=== PATIENT | male | born 1945 | race Caucasian/White ===

== ENCOUNTER 2017-06-09 13:01 | Inpatient (IN) ==
--- NOTE | 2017-06-09 13:18 | Emergency Department Note ---
Disposition Clinical Impression: Lactic acidosis, HARRY (acute kidney injury), Dehydration, COPD (chronic obstructive pulmonary disease), Hypoxia Abdominal pain Qualifiers: Abdominal location: generalized Qualified Code(s): R10.84 - Generalized abdominal pain Nausea & vomiting Qualifiers: Vomiting type: unspecified Vomiting Intractability: non-intractable Qualified Code(s): R11.2 - Nausea with vomiting, unspecified Disposition: Admitted As Inpatient Condition: Fair Referrals: Suzan Kenny CORPORATE RECEPTIONIST [Primary Care Provider] - Forms: ED Satisfaction Letter Time of Disposition: 16:32 General Adult HPI - General Chief complaint: ED Nausea/Vomiting/Diarrhea Stated complaint: N/V fever Time Seen by Provider: 06/09/17 13:11 Source: patient Limitations: no limitations Nursing Notes Reviewed: Yes Vital Signs Reviewed: Yes - History of Present Illness HPI Narrative: Mr. Toscano very pleasant 71-year-old gentleman with a past history of hypertension, hyperlipidemia, COPD, insulin dependent diabetes, CAD and tobacco abuse who presents to the [facility] emergency department with chief complaint of nausea and vomiting for duration of 48 hours. He has not taken any [id number] medications for this complaint. No prior history at this complaint. He denies any recent sick contacts or illnesses. There is associated "abdominal bloating " that is not normal and subjective fevers. He has decreased appetite over the last 48 hours but is able to drink an adequate amount of water. His last bowel movement was roughly an hour before arrival to the ED and what she describes as watery. Patient underwent successful Khalida procedure back in September 2016 for worsening reflux as well as prior cholecystectomy. Patient has no prior abilities. These occur every day smoker of one pack per day for roughly 40 years. He denies any hematuria, hematchezia, melena, chest pain, short of breath, palpitations or hemoptysis. No other complaint at this time. Pain Scale: 0 - Related Data Home Medications Medication Instructions Recorded Confirmed Albuterol Sulfate [Ventolin Hfa] 2 puff IH Q4H PRN 06/07/16 06/09/17 Aspirin 81 mg PO DAILY 06/07/16 06/09/17 Citalopram [CeleXA] 20 mg PO DAILY 06/07/16 06/09/17 CloNIDine HCl [Kapvay] 0.1 mg PO HS 06/07/16 06/09/17 Clopidogrel [Plavix] 75 mg PO DAILY 06/07/16 06/09/17 Famotidine [Pepcid] 40 mg PO DAILY 06/07/16 06/09/17 Insulin ASPART [Novolog Flexpen] 0 unit SQ TIDWM 06/07/16 06/09/17 Insulin Glargine,Hum.rec.anlog 50 unit SQ HS 06/07/16 06/09/17 [Lantus Solostar] Lovastatin 40 mg PO DAILY 06/07/16 06/09/17 Metformin HCl [Glucophage] 1,000 mg PO BID 06/07/16 06/09/17 Aclidinium [place] [Tudorza 1 puff IH BID 10/19/16 06/09/17 Pressair] Amlodipine Besylate 10 mg PO DAILY 10/19/16 06/09/17 Levothyroxine Sodium [Levoxyl] 88 mcg PO 0630 10/19/16 06/09/17 Lisinopril/Hydrochlorothiazide 1 tab PO DAILY 10/19/16 06/09/17 [Zestoretic 20-25 mg Tablet] Metoprolol [Lopressor] 25 mg PO BID 10/19/16 06/09/17 Insulin Glargine,Hum.rec.anlog 35 unit SQ DAILY 06/09/17 06/09/17 [Toujeo Solostar] Allergies Allergy/AdvReac Type Severity Reaction Status Date / Time No Known Allergies Allergy Verified 10/19/16 09:54 Review of Systems: Constitutional: No fever Vision: No blurred vision ENT: No rhinorrhea Respiratory: No cough Cardiovascular: No chest pain Allergic: No allergies : No blood in urine GI: No blood in stool Hematologic: No bruising Dermatologic: No skin rash Musculoskeletal: No pain in the extremities Neuro: No numbness of the extremities Past Medical History - Past Medical History Medical history: Reports: COPD, coronary artery disease, diabetes, GERD, hyperlipidemia, hypertension, other Surgical history: Reports: cholecystectomy, other Psychiatric history: Reports: no psych history - Social History Smoking Status: Former smoker Smokeless Tobacco Status: No Alcohol use: Reports: none Drug use: Reports: none Physical Exam CONSTITUTIONAL: Alert and oriented X3 in no apparent distress HEAD: Normocephalic; atraumatic. EYES: Ocular movements grossly intact Oropharynx: pink/moist RESP: NRD without use of accessory musculature, CTA b/l with no wheezes/rales/ rhonchi CARD: Regular rhythm, without murmurs, rubs, or gallop ABD: distended, no overt TTP throughout, no rigidiity, no rebound, BSx4 SKIN: normal appearance, no pallor/diaphoresis,mottling,jaundice,cyanosis - General Limitations: no limitations General appearance: alert, in no apparent distress Course Course Narrative: Patient seen and examined at 1315. Signs reviewed and within normal limits. Physical examination demonstrates a mildly uncomfortable patient with a distended abdomen without any rigidity or rebound tenderness. He is currently requiring 4l oxygen after "feeling confined" wearing a mask into the ED. Breathing treatment and steroids ordered. 12 Lead and trop ordered. In the presence of tachypnea and oxygen demand, we will order CTA chest to rule out PE. No distinct tenderness in any abdomnial quadrant. In the setting of nausea , vomiting, decreased appetite, abdominal distention and prior abdominal surgeries, I am concerned about possible SBO as well. We will begin workup with CBC, CMP, lipase, lactic acid and abdominal pelvic CT with contrast. Fluid bolus and Zofran were given. Disposition pending. 1430: CXR neg. BP dropped to 80s/60s. HR normal. Second IV line placed. Started on 2L IVF. Lactic acid 7.3. Trop 0.06. Cr 2.66. Blood cultures drawn. ELevated transaminases. Highly suspicisous for ischemic bowel with abdominal pain and lactic acidosis without any obvious signs of infections. Contacted Nephro with Dr. Anna to discuss CT with IV contrast to rule ischemic bowel and agreed to sign off for IV contrast if patient agreed to risks with IV contrast and likeliood of diaylsis. Anion Gap 16. Checking VBG and Beta- hydroxy. Started on 0.45% NS with 100meq Bicarb. BP rechecked during senior living through first liter of IVF and was fluid responsive at 110/80. Patient is comfortable and is feeling better. We will continue to monitor with serial exams. Radiologist recommended without IV and PO contrast and to evaluate for inflammation that would result from bowel ischemia due to timeline of symptoms for 24-48hrs. 1512: Rechecking lactic acid and Cr for trend. Repeat physical examination demonstrates no abdomnial pain and has asked nursing staff to be discharged home. Ischemic bowel is less likely at this time but we will proceed with CT scans. At this time, WBC is normal and infectious etiology is very unlikely. No requirement for oxygen throughout except for comfort per patient. I do not believe this patient to be septic but rather hypotensive from dehydration and poor intake in conjunction with metformin use resulting in HARRY and LA. Again patient does not appear to toxic at this time. Patient will be admitted to hospitalist pending full workup for HARRY and lactic acidosis. 1545: Patient returned from CT and was at ambulating on his own to the bathroom and had a bowel movement and urinated. Patient has no complaints at this time. He does appear to have some labored breathing after ambulating. Patient does appear comfortable after 4 L of oxygen. Chest, abdomen, pelvic CT demonstrate mild atelectasis along with possible ileus versus partial small bowel obstruction. Repeat lactic acid and creatinine are pending at this time. [id number] discussion with the radiologist on site regarding kidneys and ureters were explained and were unremarkable. We will watch for trending of the repeat lactic acid and creatinine and continue to watch patient closely. 1630: Lactic trended down to 5.2 and Cr 2.3. Spoke with hospitalist, Dr Castellanos, who accepted patient for admission to ICU pending bed availability. Recommended surgical consultation prior to admission. Spoke with Dr. Couch who will see patient and agreed with therapy. Patient understands and agrees to plan. 1730: Multiple attempts were made with hospitalist, Dr. Post to accept patient who is hemodynamically stable and is currently symptom-free, but refused to accept patient. He has received 3L fluid. Called Dr. Couch again to have her further review the CT results together and she recommended no immediate intervention in the presence of an overall improving clinical exam along with no free air, pneumatosis or bowel ischemic changes seen on CT. Abdominal exam shows a benign abdomen with no rebound tenderness or rigidity. There is however still a small stable presence of distention patient does not feel uncomfortable. Again vital signs were reviewed and stable. We will recheck troponin and VBG and lactic acid. 1810: Dr. Post returned to the ED and discussed the case with Dr. Couch who will come in to see patient in the ED. He has accepted patient for admission. Repeat labs are pending. Vital Signs Temperature 98.0 F 06/09/17 13:06 Pulse Rate 94 06/09/17 13:06 Respiratory Rate 28 06/09/17 13:06 Blood Pressure 102/86 06/09/17 13:06 O2 Sat by Pulse Oximetry 94 06/09/17 13:06 Temperature 98.3 F 06/09/17 16:10 Pulse Rate 98 06/09/17 18:45 Respiratory Rate 20 06/09/17 18:45 Blood Pressure 105/73 06/09/17 18:45 O2 Sat by Pulse Oximetry 91 06/09/17 18:45 Oxygen Delivery Oxygen Delivery Nasal Cannula Medical Decision Making - Medical Records Medical records reviewed: Yes I reviewed the patient's medical records. - Lab Data Lab results reviewed: Yes I reviewed the patient's lab results. Result diagrams: 06/09/17 13:34 06/09/17 15:55 Lab Results 06/09/17 06/09/17 06/09/17 Range/Units 13:19 13:34 13:34 WBC 7.6 (4.3-11.1) K/mcL RBC 4.18 L (4.19-5.50) M/mcL Hgb 12.7 L (12.9-16.9) g/dL Hct 38.2 (37.5-50.1) % MCV 91.4 (83.0-100.0) fL MCH 30.4 (28.0-33.3) pg MCHC 33.2 (31.6-35.5) g/dL RDW 14.6 H (11.5-14.5) % Plt Count 225 (140-400) K/mcL MPV 11.6 (9.4-12.4) fL Immature Gran % Test Not Performed Seg Neutrophils % 46.0 % Lymphocytes % 26.0 % Monocytes % 28.0 % Eosinophils % Test Not Performed Basophils % Test Not Performed Neutrophils # 3.5 (1.6-8.9) K/mcL Lymphocytes # 2.0 (0.6-4.6) K/mcL Monocytes # 2.1 H (0.0-1.3) K/mcL Eosinophils # Test Not Performed Basophils # Test Not Performed Platelet Estimate Normal (Normal) Anisocytosis 1+ A (Not Present) PT (9.4-12.1) Seconds INR APTT (26.0-36.0) Seconds D-Dimer (0-500) ng/mLFEU VBG pH (7.32-7.42) pH Units VBG pCO2 (41-51) mmHg VBG pO2 (25-50) mmHg VBG HCO3 (21-27) mEq/L Sodium (136-145) mEq/L Potassium (3.5-5.1) mEq/L Chloride (98-107) mEq/L Carbon Dioxide (23-29) mEq/L BUN (8-23) mg/dL Creatinine (0.70-1.30) mg/dL Est GFR ( Amer) (> 60) Est GFR (Non-Af Amer) (> 60) BUN/Creatinine Ratio (6-26) Glucose (70-105) mg/dL POC Glucose 240 H (70-99) mg/dL Calculated Osmolality (280-300) Lactic Acid 7.3 H* (0.5-2.2) mmol/L Calcium (8.6-10.3) mg/dL Total Bilirubin (0.3-1.0) mg/dL Direct Bilirubin (0.0-0.2) mg/dL Indirect Bilirubin (0.0-1.2) mg/dL AST (13-39) Units/L ALT (7-52) Units/L Alkaline Phosphatase (34-104) Units/L Creatine Kinase (30-223) Units/L Troponin I (< 0.04) ng/mL Serum Total Protein (6.4-8.9) g/dL Albumin (3.5-5.7) g/dL Globulin (2.4-3.5) g/dL Albumin/Globulin Ratio (1.1-2.2) Lipase (11-82) Units/L Beta-Hydroxybutyric Acd (0.02-0.27) mmol/L Urine Color (Yellow) Urine Clarity (Clear) Urine pH (5.0-8.0) pH Units Ur Specific [place] (1.010-1.025) Urine Protein (Neg-Trace) mg/dL Urine Glucose (UA) (Normal) mg/dL Urine Ketones (Negative) mg/dL Urine Blood (Negative) Urine Nitrite (Negative) Urine Bilirubin (Negative) Urine Urobilinogen (Normal) mg/dL Ur Leukocyte Esterase (Negative) Urine Microscopic RBC (0-3) per hpf Urine Microscopic WBC (0-3) per hpf Ur Squamous Epith Cells (None-Few) per lpf Urine Bacteria (None-Few) per hpf Hyaline Casts (None-Few) per lpf Urine Creatinine mg/dL Urine Sodium mEq/L 06/09/17 06/09/17 06/09/17 Range/Units 13:34 13:34 14:17 WBC (4.3-11.1) K/mcL RBC (4.19-5.50) M/mcL Hgb (12.9-16.9) g/dL Hct (37.5-50.1) % MCV (83.0-100.0) fL MCH (28.0-33.3) pg MCHC (31.6-35.5) g/dL RDW (11.5-14.5) % Plt Count (140-400) K/mcL MPV (9.4-12.4) fL Immature Gran % Seg Neutrophils % % Lymphocytes % % Monocytes % % Eosinophils % Basophils % Neutrophils # (1.6-8.9) K/mcL Lymphocytes # (0.6-4.6) K/mcL Monocytes # (0.0-1.3) K/mcL Eosinophils # Basophils # Platelet Estimate (Normal) Anisocytosis (Not Present) PT 13.7 H (9.4-12.1) Seconds INR 1.3 APTT 26.0 (26.0-36.0) Seconds D-Dimer (0-500) ng/mLFEU VBG pH (7.32-7.42) pH Units VBG pCO2 (41-51) mmHg VBG pO2 (25-50) mmHg VBG HCO3 (21-27) mEq/L Sodium 135 L (136-145) mEq/L Potassium 3.9 (3.5-5.1) mEq/L Chloride 103 (98-107) mEq/L Carbon Dioxide 16 L (23-29) mEq/L BUN 63 H (8-23) mg/dL Creatinine 2.66 H (0.70-1.30) mg/dL Est GFR ( Amer) 29 L (> 60) Est GFR (Non-Af Amer) 24 L (> 60) BUN/Creatinine Ratio 24 (6-26) Glucose 249 H (70-105) mg/dL POC Glucose (70-99) mg/dL Calculated Osmolality 306 H (280-300) Lactic Acid (0.5-2.2) mmol/L Calcium 7.9 L (8.6-10.3) mg/dL Total Bilirubin 0.4 0.3 (0.3-1.0) mg/dL Direct Bilirubin 0.1 (0.0-0.2) mg/dL Indirect Bilirubin 0.2 (0.0-1.2) mg/dL AST 125 H 148 H (13-39) Units/L ALT 90 H 105 H (7-52) Units/L Alkaline Phosphatase 36 37 (34-104) Units/L Creatine Kinase 71 (30-223) Units/L Troponin I 0.06 H* (< 0.04) ng/mL Serum Total Protein 6.4 6.4 (6.4-8.9) g/dL Albumin 3.5 3.7 (3.5-5.7) g/dL Globulin 2.9 2.7 (2.4-3.5) g/dL Albumin/Globulin Ratio 1.2 1.4 (1.1-2.2) Lipase 6 L (11-82) Units/L Beta-Hydroxybutyric Acd (0.02-0.27) mmol/L Urine Color (Yellow) Urine Clarity (Clear) Urine pH (5.0-8.0) pH Units Ur Specific [place] (1.010-1.025) Urine Protein (Neg-Trace) mg/dL Urine Glucose (UA) (Normal) mg/dL Urine Ketones (Negative) mg/dL Urine Blood (Negative) Urine Nitrite (Negative) Urine Bilirubin (Negative) Urine Urobilinogen (Normal) mg/dL Ur Leukocyte Esterase (Negative) Urine Microscopic RBC (0-3) per hpf Urine Microscopic WBC (0-3) per hpf Ur Squamous Epith Cells (None-Few) per lpf Urine Bacteria (None-Few) per hpf Hyaline Casts (None-Few) per lpf Urine Creatinine mg/dL Urine Sodium mEq/L 06/09/17 06/09/17 06/09/17 Range/Units 14:21 14:31 15:14 WBC (4.3-11.1) K/mcL RBC (4.19-5.50) M/mcL Hgb (12.9-16.9) g/dL Hct (37.5-50.1) % MCV (83.0-100.0) fL MCH (28.0-33.3) pg MCHC (31.6-35.5) g/dL RDW (11.5-14.5) % Plt Count (140-400) K/mcL MPV (9.4-12.4) fL Immature Gran % Seg Neutrophils % % Lymphocytes % % Monocytes % % Eosinophils % Basophils % Neutrophils # (1.6-8.9) K/mcL Lymphocytes # (0.6-4.6) K/mcL Monocytes # (0.0-1.3) K/mcL Eosinophils # Basophils # Platelet Estimate (Normal) Anisocytosis (Not Present) PT (9.4-12.1) Seconds INR APTT (26.0-36.0) Seconds D-Dimer (0-500) ng/mLFEU VBG pH 7.30 L (7.32-7.42) pH Units VBG pCO2 34 L (41-51) mmHg VBG pO2 36 (25-50) mmHg VBG HCO3 17 L (21-27) mEq/L Sodium (136-145) mEq/L Potassium (3.5-5.1) mEq/L Chloride (98-107) mEq/L Carbon Dioxide (23-29) mEq/L BUN (8-23) mg/dL Creatinine (0.70-1.30) mg/dL Est GFR ( Amer) (> 60) Est GFR (Non-Af Amer) (> 60) BUN/Creatinine Ratio (6-26) Glucose (70-105) mg/dL POC Glucose (70-99) mg/dL Calculated Osmolality (280-300) Lactic Acid (0.5-2.2) mmol/L Calcium (8.6-10.3) mg/dL Total Bilirubin (0.3-1.0) mg/dL Direct Bilirubin (0.0-0.2) mg/dL Indirect Bilirubin (0.0-1.2) mg/dL AST (13-39) Units/L ALT (7-52) Units/L Alkaline Phosphatase (34-104) Units/L Creatine Kinase (30-223) Units/L Troponin I (< 0.04) ng/mL Serum Total Protein (6.4-8.9) g/dL Albumin (3.5-5.7) g/dL Globulin (2.4-3.5) g/dL Albumin/Globulin Ratio (1.1-2.2) Lipase (11-82) Units/L Beta-Hydroxybutyric Acd < 0.10 (0.02-0.27) mmol/L Urine Color Yellow (Yellow) Urine Clarity Cloudy A (Clear) Urine pH 5.0 (5.0-8.0) pH Units Ur Specific [place] 1.026 H (1.010-1.025) Urine Protein 100 H (Neg-Trace) mg/dL Urine Glucose (UA) 500 H (Normal) mg/dL Urine Ketones Trace H (Negative) mg/dL Urine Blood Negative (Negative) Urine Nitrite Negative (Negative) Urine Bilirubin Small H (Negative) Urine Urobilinogen Normal (Normal) mg/dL Ur Leukocyte Esterase Negative (Negative) Urine Microscopic RBC 0-3 (0-3) per hpf Urine Microscopic WBC 3-5 H (0-3) per hpf Ur Squamous Epith Cells Many H (None-Few) per lpf Urine Bacteria None Seen (None-Few) per hpf Hyaline Casts None Seen (None-Few) per lpf Urine Creatinine mg/dL Urine Sodium mEq/L 06/09/17 06/09/17 06/09/17 Range/Units 15:14 15:55 15:55 WBC (4.3-11.1) K/mcL RBC (4.19-5.50) M/mcL Hgb (12.9-16.9) g/dL Hct (37.5-50.1) % MCV (83.0-100.0) fL MCH (28.0-33.3) pg MCHC (31.6-35.5) g/dL RDW (11.5-14.5) % Plt Count (140-400) K/mcL MPV (9.4-12.4) fL Immature Gran % Seg Neutrophils % % Lymphocytes % % Monocytes % % Eosinophils % Basophils % Neutrophils # (1.6-8.9) K/mcL Lymphocytes # (0.6-4.6) K/mcL Monocytes # (0.0-1.3) K/mcL Eosinophils # Basophils # Platelet Estimate (Normal) Anisocytosis (Not Present) PT (9.4-12.1) Seconds INR APTT (26.0-36.0) Seconds D-Dimer (0-500) ng/mLFEU VBG pH (7.32-7.42) pH Units VBG pCO2 (41-51) mmHg VBG pO2 (25-50) mmHg VBG HCO3 (21-27) mEq/L Sodium (136-145) mEq/L Potassium (3.5-5.1) mEq/L Chloride (98-107) mEq/L Carbon Dioxide (23-29) mEq/L BUN (8-23) mg/dL Creatinine 2.39 H (0.70-1.30) mg/dL Est GFR ( Amer) 33 L (> 60) Est GFR (Non-Af Amer) 27 L (> 60) BUN/Creatinine Ratio (6-26) Glucose (70-105) mg/dL POC Glucose (70-99) mg/dL Calculated Osmolality (280-300) Lactic Acid 5.2 H* (0.5-2.2) mmol/L Calcium (8.6-10.3) mg/dL Total Bilirubin (0.3-1.0) mg/dL Direct Bilirubin (0.0-0.2) mg/dL Indirect Bilirubin (0.0-1.2) mg/dL AST (13-39) Units/L ALT (7-52) Units/L Alkaline Phosphatase (34-104) Units/L Creatine Kinase (30-223) Units/L Troponin I (< 0.04) ng/mL Serum Total Protein (6.4-8.9) g/dL Albumin (3.5-5.7) g/dL Globulin (2.4-3.5) g/dL Albumin/Globulin Ratio (1.1-2.2) Lipase (11-82) Units/L Beta-Hydroxybutyric Acd (0.02-0.27) mmol/L Urine Color (Yellow) Urine Clarity (Clear) Urine pH (5.0-8.0) pH Units Ur Specific [place] (1.010-1.025) Urine Protein (Neg-Trace) mg/dL Urine Glucose (UA) (Normal) mg/dL Urine Ketones (Negative) mg/dL Urine Blood (Negative) Urine Nitrite (Negative) Urine Bilirubin (Negative) Urine Urobilinogen (Normal) mg/dL Ur Leukocyte Esterase (Negative) Urine Microscopic RBC (0-3) per hpf Urine Microscopic WBC (0-3) per hpf Ur Squamous Epith Cells (None-Few) per lpf Urine Bacteria (None-Few) per hpf Hyaline Casts (None-Few) per lpf Urine Creatinine 165 mg/dL Urine Sodium 18.7 mEq/L 06/09/17 06/09/17 Range/Units 18:12 18:34 WBC (4.3-11.1) K/mcL RBC (4.19-5.50) M/mcL Hgb (12.9-16.9) g/dL Hct (37.5-50.1) % MCV (83.0-100.0) fL MCH (28.0-33.3) pg MCHC (31.6-35.5) g/dL RDW (11.5-14.5) % Plt Count (140-400) K/mcL MPV (9.4-12.4) fL Immature Gran % Seg Neutrophils % % Lymphocytes % % Monocytes % % Eosinophils % Basophils % Neutrophils # (1.6-8.9) K/mcL Lymphocytes # (0.6-4.6) K/mcL Monocytes # (0.0-1.3) K/mcL Eosinophils # Basophils # Platelet Estimate (Normal) Anisocytosis (Not Present) PT (9.4-12.1) Seconds INR APTT (26.0-36.0) Seconds D-Dimer 5051 H (0-500) ng/mLFEU VBG pH 7.37 (7.32-7.42) pH Units VBG pCO2 29 L (41-51) mmHg VBG pO2 152 H (25-50) mmHg VBG HCO3 16 L (21-27) mEq/L Sodium (136-145) mEq/L Potassium (3.5-5.1) mEq/L Chloride (98-107) mEq/L Carbon Dioxide (23-29) mEq/L BUN (8-23) mg/dL Creatinine (0.70-1.30) mg/dL Est GFR ( Amer) (> 60) Est GFR (Non-Af Amer) (> 60) BUN/Creatinine Ratio (6-26) Glucose (70-105) mg/dL POC Glucose (70-99) mg/dL Calculated Osmolality (280-300) Lactic Acid (0.5-2.2) mmol/L Calcium (8.6-10.3) mg/dL Total Bilirubin (0.3-1.0) mg/dL Direct Bilirubin (0.0-0.2) mg/dL Indirect Bilirubin (0.0-1.2) mg/dL AST (13-39) Units/L ALT (7-52) Units/L Alkaline Phosphatase (34-104) Units/L Creatine Kinase (30-223) Units/L Troponin I (< 0.04) ng/mL Serum Total Protein (6.4-8.9) g/dL Albumin (3.5-5.7) g/dL Globulin (2.4-3.5) g/dL Albumin/Globulin Ratio (1.1-2.2) Lipase (11-82) Units/L Beta-Hydroxybutyric Acd (0.02-0.27) mmol/L Urine Color (Yellow) Urine Clarity (Clear) Urine pH (5.0-8.0) pH Units Ur Specific [place] (1.010-1.025) Urine Protein (Neg-Trace) mg/dL Urine Glucose (UA) (Normal) mg/dL Urine Ketones (Negative) mg/dL Urine Blood (Negative) Urine Nitrite (Negative) Urine Bilirubin (Negative) Urine Urobilinogen (Normal) mg/dL Ur Leukocyte Esterase (Negative) Urine Microscopic RBC (0-3) per hpf Urine Microscopic WBC (0-3) per hpf Ur Squamous Epith Cells (None-Few) per lpf Urine Bacteria (None-Few) per hpf Hyaline Casts (None-Few) per lpf Urine Creatinine mg/dL Urine Sodium mEq/L - Radiology Data Radiology results reviewed: Yes I reviewed the patient's radiology results. - EKG Data EKG #1 EKG shows normal: sinus rhythm Rate: normal [place]/QRS: RBBB T wave inversions noted in: I, aVL, v4, v5, v6 When compared to previous EKG there are: no significant changes Interpretation: no acute changes Attestation Statement - Attestation Attestation: I, Gaurav Stauffer DO, examined this patient [id number] and my medical decision-making was reviewed with Дмитрий Patterson PGY-1, Resident Physician. I agree with the documented findings, disposition and treatment plan as described except to the extent set forth below. Please see my progress notes for details.
[2017-06-09] MEDS ORDERED: Isovue-370 500 ML INFUS..BTL IV ONE (13:21)
[2017-06-09] MEDS ORDERED: 0.9 % Sodium Chloride 1,000 ML IVC ONE ×2 (13:24→14:17)
[2017-06-09] MEDS ORDERED: Ondansetron ODT 4 MG TAB.RAPDIS SL ONE (13:25)
[2017-06-09 13:41] LABS: Hematocrit 38.2 % (37.5-50.1); Hemoglobin 12.7 g/dL (12.9-16.9); Mean Corpuscular HGB Conc 33.2 g/dL (31.6-35.5); Mean Corpuscular Hemoglobin 30.4 pg (28.0-33.3); Mean Corpuscular Volume 91.4 fL (83.0-100.0); Mean Platelet Volume 11.6 fL (9.4-12.4); Platelet Count 225 K/mcL (140-400); Red Blood Count 4.18 M/mcL (4.19-5.50); Red Cell Distribution Width 14.6 % (11.5-14.5)
[2017-06-09] MEDS ORDERED: Ipratropium/Albuterol Neb 3 ML IH ONE (13:46)
[2017-06-09] MEDS ORDERED: methylPREDNISolone 125 MG/2 ML VIAL IVP ONE (13:46)
--- NOTE | 2017-06-09 14:06 | Emergency Department Note ---
Disposition Clinical Impression: Lactic acidosis, HARRY (acute kidney injury), Dehydration, Abdominal pain, Nausea & vomiting Disposition: Admitted As Inpatient Condition: Good Referrals: Suzan Kenny CEN[employer]IFUGE OPERATOR [Primary Care Provider] - Forms: ED Satisfaction Letter Time of Disposition: 17:07 General Adult HPI - General Chief complaint: ED Nausea/Vomiting/Diarrhea Stated complaint: N/V fever Time Seen by Provider: 06/09/17 13:11 Source: patient Limitations: no limitations - History of Present Illness Pain Scale: 0 - Related Data Home Medications Medication Instructions Recorded Confirmed Albuterol Sulfate [Ventolin Hfa] 2 puff IH Q4H PRN 06/07/16 10/19/16 Aspirin 81 mg PO DAILY 06/07/16 10/19/16 Citalopram [CeleXA] 20 mg PO DAILY 06/07/16 10/19/16 CloNIDine HCl [Kapvay] 0.1 mg PO HS 06/07/16 10/19/16 Clopidogrel [Plavix] 75 mg PO DAILY 06/07/16 10/19/16 Famotidine [Pepcid] 40 mg PO DAILY 06/07/16 10/19/16 Insulin ASPART [Novolog Flexpen] 0 unit SQ TIDWM 06/07/16 10/19/16 Insulin Glargine,Hum.rec.anlog 50 unit SQ HS 06/07/16 10/19/16 [Lantus Solostar] Lovastatin 40 mg PO DAILY 06/07/16 10/19/16 Metformin HCl [Glucophage] 1,000 mg PO BID 06/07/16 10/19/16 Aclidinium Coffeen [Tudorza 1 puff IH BID 10/19/16 10/19/16 Pressair] Amlodipine Besylate 10 mg PO DAILY 10/19/16 10/19/16 Levothyroxine Sodium [Levoxyl] 88 mcg PO 0630 10/19/16 10/19/16 Lisinopril/Hydrochlorothiazide 1 tab PO DAILY 10/19/16 10/19/16 [Zestoretic 20-25 mg Tablet] Metoprolol [Lopressor] 25 mg PO BID 10/19/16 10/19/16 Insulin Glargine,Hum.rec.anlog 35 unit SQ DAILY 06/09/17 06/09/17 [Toujeo Solostar] Allergies Allergy/AdvReac Type Severity Reaction Status Date / Time No Known Allergies Allergy Verified 10/19/16 09:54 Past Medical History - Past Medical History Medical history: Reports: COPD, coronary artery disease, diabetes, GERD, hyperlipidemia, hypertension, other Surgical history: Reports: cholecystectomy, other Psychiatric history: Reports: no psych history - Social History Smoking Status: Former smoker Smokeless Tobacco Status: No Alcohol use: Reports: none Drug use: Reports: none Physical Exam - General Limitations: no limitations General appearance: alert, in no apparent distress Course Vital Signs Temperature 98.0 F 06/09/17 13:06 Pulse Rate 94 06/09/17 13:06 Respiratory Rate 28 06/09/17 13:06 Blood Pressure 102/86 06/09/17 13:06 O2 Sat by Pulse Oximetry 94 06/09/17 13:06 Temperature 98.3 F 06/09/17 16:10 Pulse Rate 101 06/09/17 16:10 Respiratory Rate 23 06/09/17 16:10 Blood Pressure 103/72 06/09/17 16:10 O2 Sat by Pulse Oximetry 92 06/09/17 16:10 Oxygen Delivery Oxygen Delivery Nasal Cannula Medical Decision Making - Lab Data Result diagrams: 06/09/17 13:34 06/09/17 15:55 Lab Results 06/09/17 06/09/17 06/09/17 Range/Units 13:19 13:34 13:34 WBC 7.6 (4.3-11.1) K/mcL RBC 4.18 L (4.19-5.50) M/mcL Hgb 12.7 L (12.9-16.9) g/dL Hct 38.2 (37.5-50.1) % MCV 91.4 (83.0-100.0) fL MCH 30.4 (28.0-33.3) pg MCHC 33.2 (31.6-35.5) g/dL RDW 14.6 H (11.5-14.5) % Plt Count 225 (140-400) K/mcL MPV 11.6 (9.4-12.4) fL Immature Gran % Test Not Performed Seg Neutrophils % 46.0 % Lymphocytes % 26.0 % Monocytes % 28.0 % Eosinophils % Test Not Performed Basophils % Test Not Performed Neutrophils # 3.5 (1.6-8.9) K/mcL Lymphocytes # 2.0 (0.6-4.6) K/mcL Monocytes # 2.1 H (0.0-1.3) K/mcL Eosinophils # Test Not Performed Basophils # Test Not Performed Platelet Estimate Normal (Normal) Anisocytosis 1+ A (Not Present) PT (9.4-12.1) Seconds INR APTT (26.0-36.0) Seconds VBG pH (7.32-7.42) pH Units VBG pCO2 (41-51) mmHg VBG pO2 (25-50) mmHg VBG HCO3 (21-27) mEq/L Sodium (136-145) mEq/L Potassium (3.5-5.1) mEq/L Chloride (98-107) mEq/L Carbon Dioxide (23-29) mEq/L BUN (8-23) mg/dL Creatinine (0.70-1.30) mg/dL Est GFR ( Amer) (> 60) Est GFR (Non-Af Amer) (> 60) BUN/Creatinine Ratio (6-26) Glucose (70-105) mg/dL POC Glucose 240 H (70-99) mg/dL Calculated Osmolality (280-300) Lactic Acid 7.3 H* (0.5-2.2) mmol/L Calcium (8.6-10.3) mg/dL Total Bilirubin (0.3-1.0) mg/dL Direct Bilirubin (0.0-0.2) mg/dL Indirect Bilirubin (0.0-1.2) mg/dL AST (13-39) Units/L ALT (7-52) Units/L Alkaline Phosphatase (34-104) Units/L Creatine Kinase (30-223) Units/L Troponin I (< 0.04) ng/mL Serum Total Protein (6.4-8.9) g/dL Albumin (3.5-5.7) g/dL Globulin (2.4-3.5) g/dL Albumin/Globulin Ratio (1.1-2.2) Lipase (11-82) Units/L Beta-Hydroxybutyric Acd (0.02-0.27) mmol/L Urine Color (Yellow) Urine Clarity (Clear) Urine pH (5.0-8.0) pH Units Ur Specific [place] (1.010-1.025) Urine Protein (Neg-Trace) mg/dL Urine Glucose (UA) (Normal) mg/dL Urine Ketones (Negative) mg/dL Urine Blood (Negative) Urine Nitrite (Negative) Urine Bilirubin (Negative) Urine Urobilinogen (Normal) mg/dL Ur Leukocyte Esterase (Negative) Urine Microscopic RBC (0-3) per hpf Urine Microscopic WBC (0-3) per hpf Ur Squamous Epith Cells (None-Few) per lpf Urine Bacteria (None-Few) per hpf Hyaline Casts (None-Few) per lpf Urine Creatinine mg/dL Urine Sodium mEq/L 06/09/17 06/09/17 06/09/17 Range/Units 13:34 13:34 14:17 WBC (4.3-11.1) K/mcL RBC (4.19-5.50) M/mcL Hgb (12.9-16.9) g/dL Hct (37.5-50.1) % MCV (83.0-100.0) fL MCH (28.0-33.3) pg MCHC (31.6-35.5) g/dL RDW (11.5-14.5) % Plt Count (140-400) K/mcL MPV (9.4-12.4) fL Immature Gran % Seg Neutrophils % % Lymphocytes % % Monocytes % % Eosinophils % Basophils % Neutrophils # (1.6-8.9) K/mcL Lymphocytes # (0.6-4.6) K/mcL Monocytes # (0.0-1.3) K/mcL Eosinophils # Basophils # Platelet Estimate (Normal) Anisocytosis (Not Present) PT 13.7 H (9.4-12.1) Seconds INR 1.3 APTT 26.0 (26.0-36.0) Seconds VBG pH (7.32-7.42) pH Units VBG pCO2 (41-51) mmHg VBG pO2 (25-50) mmHg VBG HCO3 (21-27) mEq/L Sodium 135 L (136-145) mEq/L Potassium 3.9 (3.5-5.1) mEq/L Chloride 103 (98-107) mEq/L Carbon Dioxide 16 L (23-29) mEq/L BUN 63 H (8-23) mg/dL Creatinine 2.66 H (0.70-1.30) mg/dL Est GFR ( Amer) 29 L (> 60) Est GFR (Non-Af Amer) 24 L (> 60) BUN/Creatinine Ratio 24 (6-26) Glucose 249 H (70-105) mg/dL POC Glucose (70-99) mg/dL Calculated Osmolality 306 H (280-300) Lactic Acid (0.5-2.2) mmol/L Calcium 7.9 L (8.6-10.3) mg/dL Total Bilirubin 0.4 0.3 (0.3-1.0) mg/dL Direct Bilirubin 0.1 (0.0-0.2) mg/dL Indirect Bilirubin 0.2 (0.0-1.2) mg/dL AST 125 H 148 H (13-39) Units/L ALT 90 H 105 H (7-52) Units/L Alkaline Phosphatase 36 37 (34-104) Units/L Creatine Kinase 71 (30-223) Units/L Troponin I 0.06 H* (< 0.04) ng/mL Serum Total Protein 6.4 6.4 (6.4-8.9) g/dL Albumin 3.5 3.7 (3.5-5.7) g/dL Globulin 2.9 2.7 (2.4-3.5) g/dL Albumin/Globulin Ratio 1.2 1.4 (1.1-2.2) Lipase 6 L (11-82) Units/L Beta-Hydroxybutyric Acd (0.02-0.27) mmol/L Urine Color (Yellow) Urine Clarity (Clear) Urine pH (5.0-8.0) pH Units Ur Specific [place] (1.010-1.025) Urine Protein (Neg-Trace) mg/dL Urine Glucose (UA) (Normal) mg/dL Urine Ketones (Negative) mg/dL Urine Blood (Negative) Urine Nitrite (Negative) Urine Bilirubin (Negative) Urine Urobilinogen (Normal) mg/dL Ur Leukocyte Esterase (Negative) Urine Microscopic RBC (0-3) per hpf Urine Microscopic WBC (0-3) per hpf Ur Squamous Epith Cells (None-Few) per lpf Urine Bacteria (None-Few) per hpf Hyaline Casts (None-Few) per lpf Urine Creatinine mg/dL Urine Sodium mEq/L 06/09/17 06/09/17 06/09/17 Range/Units 14:21 14:31 15:14 WBC (4.3-11.1) K/mcL RBC (4.19-5.50) M/mcL Hgb (12.9-16.9) g/dL Hct (37.5-50.1) % MCV (83.0-100.0) fL MCH (28.0-33.3) pg MCHC (31.6-35.5) g/dL RDW (11.5-14.5) % Plt Count (140-400) K/mcL MPV (9.4-12.4) fL Immature Gran % Seg Neutrophils % % Lymphocytes % % Monocytes % % Eosinophils % Basophils % Neutrophils # (1.6-8.9) K/mcL Lymphocytes # (0.6-4.6) K/mcL Monocytes # (0.0-1.3) K/mcL Eosinophils # Basophils # Platelet Estimate (Normal) Anisocytosis (Not Present) PT (9.4-12.1) Seconds INR APTT (26.0-36.0) Seconds VBG pH 7.30 L (7.32-7.42) pH Units VBG pCO2 34 L (41-51) mmHg VBG pO2 36 (25-50) mmHg VBG HCO3 17 L (21-27) mEq/L Sodium (136-145) mEq/L Potassium (3.5-5.1) mEq/L Chloride (98-107) mEq/L Carbon Dioxide (23-29) mEq/L BUN (8-23) mg/dL Creatinine (0.70-1.30) mg/dL Est GFR ( Amer) (> 60) Est GFR (Non-Af Amer) (> 60) BUN/Creatinine Ratio (6-26) Glucose (70-105) mg/dL POC Glucose (70-99) mg/dL Calculated Osmolality (280-300) Lactic Acid (0.5-2.2) mmol/L Calcium (8.6-10.3) mg/dL Total Bilirubin (0.3-1.0) mg/dL Direct Bilirubin (0.0-0.2) mg/dL Indirect Bilirubin (0.0-1.2) mg/dL AST (13-39) Units/L ALT (7-52) Units/L Alkaline Phosphatase (34-104) Units/L Creatine Kinase (30-223) Units/L Troponin I (< 0.04) ng/mL Serum Total Protein (6.4-8.9) g/dL Albumin (3.5-5.7) g/dL Globulin (2.4-3.5) g/dL Albumin/Globulin Ratio (1.1-2.2) Lipase (11-82) Units/L Beta-Hydroxybutyric Acd < 0.10 (0.02-0.27) mmol/L Urine Color Yellow (Yellow) Urine Clarity Cloudy A (Clear) Urine pH 5.0 (5.0-8.0) pH Units Ur Specific [place] 1.026 H (1.010-1.025) Urine Protein 100 H (Neg-Trace) mg/dL Urine Glucose (UA) 500 H (Normal) mg/dL Urine Ketones Trace H (Negative) mg/dL Urine Blood Negative (Negative) Urine Nitrite Negative (Negative) Urine Bilirubin Small H (Negative) Urine Urobilinogen Normal (Normal) mg/dL Ur Leukocyte Esterase Negative (Negative) Urine Microscopic RBC 0-3 (0-3) per hpf Urine Microscopic WBC 3-5 H (0-3) per hpf Ur Squamous Epith Cells Many H (None-Few) per lpf Urine Bacteria None Seen (None-Few) per hpf Hyaline Casts None Seen (None-Few) per lpf Urine Creatinine mg/dL Urine Sodium mEq/L 06/09/17 06/09/17 06/09/17 Range/Units 15:14 15:55 15:55 WBC (4.3-11.1) K/mcL RBC (4.19-5.50) M/mcL Hgb (12.9-16.9) g/dL Hct (37.5-50.1) % MCV (83.0-100.0) fL MCH (28.0-33.3) pg MCHC (31.6-35.5) g/dL RDW (11.5-14.5) % Plt Count (140-400) K/mcL MPV (9.4-12.4) fL Immature Gran % Seg Neutrophils % % Lymphocytes % % Monocytes % % Eosinophils % Basophils % Neutrophils # (1.6-8.9) K/mcL Lymphocytes # (0.6-4.6) K/mcL Monocytes # (0.0-1.3) K/mcL Eosinophils # Basophils # Platelet Estimate (Normal) Anisocytosis (Not Present) PT (9.4-12.1) Seconds INR APTT (26.0-36.0) Seconds VBG pH (7.32-7.42) pH Units VBG pCO2 (41-51) mmHg VBG pO2 (25-50) mmHg VBG HCO3 (21-27) mEq/L Sodium (136-145) mEq/L Potassium (3.5-5.1) mEq/L Chloride (98-107) mEq/L Carbon Dioxide (23-29) mEq/L BUN (8-23) mg/dL Creatinine 2.39 H (0.70-1.30) mg/dL Est GFR ( Amer) 33 L (> 60) Est GFR (Non-Af Amer) 27 L (> 60) BUN/Creatinine Ratio (6-26) Glucose (70-105) mg/dL POC Glucose (70-99) mg/dL Calculated Osmolality (280-300) Lactic Acid 5.2 H* (0.5-2.2) mmol/L Calcium (8.6-10.3) mg/dL Total Bilirubin (0.3-1.0) mg/dL Direct Bilirubin (0.0-0.2) mg/dL Indirect Bilirubin (0.0-1.2) mg/dL AST (13-39) Units/L ALT (7-52) Units/L Alkaline Phosphatase (34-104) Units/L Creatine Kinase (30-223) Units/L Troponin I (< 0.04) ng/mL Serum Total Protein (6.4-8.9) g/dL Albumin (3.5-5.7) g/dL Globulin (2.4-3.5) g/dL Albumin/Globulin Ratio (1.1-2.2) Lipase (11-82) Units/L Beta-Hydroxybutyric Acd (0.02-0.27) mmol/L Urine Color (Yellow) Urine Clarity (Clear) Urine pH (5.0-8.0) pH Units Ur Specific [place] (1.010-1.025) Urine Protein (Neg-Trace) mg/dL Urine Glucose (UA) (Normal) mg/dL Urine Ketones (Negative) mg/dL Urine Blood (Negative) Urine Nitrite (Negative) Urine Bilirubin (Negative) Urine Urobilinogen (Normal) mg/dL Ur Leukocyte Esterase (Negative) Urine Microscopic RBC (0-3) per hpf Urine Microscopic WBC (0-3) per hpf Ur Squamous Epith Cells (None-Few) per lpf Urine Bacteria (None-Few) per hpf Hyaline Casts (None-Few) per lpf Urine Creatinine 165 mg/dL Urine Sodium 18.7 mEq/L Critical Care Time Critical Care Time: Yes Total Critical Care Time: 45 Attestation: Critical care performed: Time is exclusive of separately billable procedures. Time includes: direct patient care, patient reassessment, coordination of patient care, interpretation of data (laboratory data, radiology data, and respiratory data), review of patient's medical records, medical consultation and documentation of patient care. Procedures included in critical care time: Procedures excluded from critical care time: Attestation Statement - Attestation Attestation: I, Gaurav Stauffer DO, examined this patient [id number] and my medical decision-making was reviewed with Дмитрий Patterson PGY-1, Resident Physician. I agree with the documented findings, disposition and treatment plan as described except to the extent set forth below. Please see my progress notes for details. 71-year-old male presents to the emergency room for evaluation of shortness of breath abdominal pain nausea vomiting and diarrhea. Patient has had these symptoms for approximately 24+ hours at this time. He denies any trauma or injury. Currently denying chest pain fevers chills headaches vision changes at this point. He does have intermittent shortness of breath along with nausea vomiting and diarrhea. Patient has not traveled outside the country nobody else is been sick around him he denies any other symptoms outside of intermittent chills and what he described as a fever at home but no documented temperature. Vital signs on presentation here stable. Patient is afebrile. He did take aspirin prior to coming in but no other antipyretics. Patient's lungs are clear to auscultation he does have a viral increased work of breathing and accessory muscle use at this time. He denies any chest discomfort or pain. His heart is regular. Abdomen is soft he does have normal bowel sounds at this point. He has no guarding no rigidity no peritoneal symptoms. He says that his pain and shortness of breath are worse when he takes a deep breath in. He does have a history of a Khalida fundoplication within the last 12 months. He has never had any complications with the surgery. Patient is otherwise clinically stable. Breathing treatments steroids will be started along with fluid secondary to mild hypotension. Patient's chest x-ray was ordered but canceled subsequently after the patient is still complaining of shortness of breath. He does not typically use oxygen at home. CT angiography of the chest looking for pulmonary emboli or other pathology will be ordered at this time as well as CT imaging of the abdomen secondary to the abdominal pain. Lactic acid CMP and lipase will also be added on. Disposition pending the full treatment course. Patient is otherwise clinically stable disposition pending the full workup and treatment. See detailed documentation of the physical exam, medical intervention, medical decision-making and disposition in the resident physician's note. No critical care appliedtreatment course at this time 1400 Patient found to have a significantly elevated renal function at 2.66 as well as a GFR 24. These are new findings for him at this time. Patient also has a significantly elevated lactic acid at 7.3. Is currently on metformin as well as subcutaneous insulin. Patient is now symptom-free. He does not have any pain or complaints. His breathing is much less labored. Initial blood pressure was labile but after 2 L of fluid is repeat blood pressure is about 115 systolic without any complication. Patient's lactic acid as well as the presentation are concerning for possible other underlying etiology including infection versus ischemic bowel. 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 Anna and I reviewed the patient's presentation symptoms and she felt that is larger decision-making process was utilized patient understood the risks of possible renal insufficiency and requirement of dialysis that if we needed CT imaging with IV contrast that she will follow along in conjunction to the patient's symptoms. Discussion was had with the patient the bedside and he understood this and is in agreement 7 for the need for the imaging ordered. Patient does not have any acute infectious etiology of his abdomen is completely benign at this time and has no pain or complaints. Symptoms do not clinically fit ischemic bowel at this time based on the presentation symptoms. Lengthy discussion was also had with the radiologist, Dr. Kj Brian, here in the emergency room. We discussed at length the concern for elevated lactic acid dehydration and nondescript abdominal pain about the patient in. He felt that considering the patient has had symptoms for greater than 24 hours noncontrasted scan of the chest and abdomen will be given of pertinent information to either pushes towards IV contrast of the abdomen with those bowel wall inflammation or thickening versus any other pathology that may be addressed are visualized on exam. Clinically, the patient has had complete resolution of his symptoms and in fact is asking nursing staff if he could be discharged home. Patient will have the completion the imaging modality and discussion with the hospitalist for admission at this time. Disposition pending the full workup and treatment course. Approximately 35 minutes of critical care provider this patient's treatment course this time. Bedside ultrasound was completed showing no acute signs of intra-abdominal free fluid, aneurysm of the aorta or dissection at this time. At this time, antibiotics will be held considering we do not have a focal source of infection and the patient's white count is normal. Again, the patient is completely symptom free at this time describing no shortness of breath and no abdominal pain. He has not required oxygen other medical intervention at this point. He did get placed on oxygen by nasal cannula secondary to what he described as feeling better with the oxygen on. His pulse ox was 95% the entire time. 1635 Patient repeat lactic acid as well as kidney function appear to be resolving with fluid resuscitation. His pain is almost completely gone at this time no significant pain medication provided. He has had a bowel movement while here in the emergency room he started urinating more aggressively. Fluid hydration with 150 mL of fluid every hour as ordered at this point. Patient does not have an acute signs of pulmonary congestion. Clinical suspicion for ischemic gut is much less likely this time secondary the patient's pain being controlled as well as a resolving symptoms at this point. Patient most likely had nausea vomiting and diarrhea that induced a dehydration state affecting his kidneys and then he continued to take his metformin at home for his poorly controlled diabetes. Patient will be admitted at this time for further management. Patient does not have any acute signs of ileus or obstruction based on his presentation. CT scan shows possible ileus but no other obstructive pathology noted. Patient is otherwise stable. Admission process to be completed at this time. No antibiotics at this point considering the patient does not have a focal infection. Patient has been provided 2.5 L of fluid with the maintenance fluids as well as a 2). Patient is stabilized at this point. There is still clinical concern for decompensation. Hospitalist was informed lactic acid creatinine Sertoli-Leydig and that they should be consideration of CT with IV contrast looking for bowel ischemia. Otherwise the patient has responded appropriately to fluid resuscitation. The hospitalist Dr. Castellanos was informed of the case. No other significant recommendations at this time. Patient is clinically stable this point admission process will be completed.
[2017-06-09 14:07] LABS: Anisocytosis 1+ (Not Present); Monocytes # 2.1 K/mcL (0.0-1.3); Neutrophils # 3.5 K/mcL (1.6-8.9)
[2017-06-09 14:08] LABS: Platelet Estimate Normal (Normal)
[2017-06-09 14:13] LABS: Albumin 3.5 g/dL (3.5-5.7); Albumin/Globulin Ratio 1.2 (1.1-2.2); Bilirubin,Total 0.4 mg/dL (0.3-1.0); Calcium 7.9 mg/dL (8.6-10.3); Globulin 2.9 g/dL (2.4-3.5); INR 1.3; Potassium 3.9 mEq/L (3.5-5.1); Prothrombin Time 13.7 Seconds (9.4-12.1); Total Protein 6.4 g/dL (6.4-8.9)
[2017-06-09 14:27] LABS: Troponin I 0.06 ng/mL (< 0.04)
[2017-06-09 14:34] LABS: VBG HCO3 17 mEq/L (21-27); VBG PCO2 34 mmHg (41-51); VBG PO2 36 mmHg (25-50)
[2017-06-09] MEDS ORDERED: Sodium Bicarbonate 100 MEQ in 0.45 % Sodium Chloride 1,000 ML IVC SCH (14:45)
[2017-06-09 14:55] LABS: Albumin 3.7 g/dL (3.5-5.7); Albumin/Globulin Ratio 1.4 (1.1-2.2); Bilirubin,Direct 0.1 mg/dL (0.0-0.2); Bilirubin,Indirect 0.2 mg/dL (0.0-1.2); Bilirubin,Total 0.3 mg/dL (0.3-1.0); Globulin 2.7 g/dL (2.4-3.5); Total Protein 6.4 g/dL (6.4-8.9)
[2017-06-09 15:22] LABS: Bilirubin,Urine Small (Negative); Blood,Urine Negative (Negative); Clarity,Urine Cloudy (Clear); Color,Urine Yellow (Yellow); Glucose,Urine (UA) 500 mg/dL (Normal); Ketones,Urine Trace mg/dL (Negative); Leukocyte Esterase,Urine Negative (Negative); Nitrite,Urine Negative (Negative); Protein,Urine 100 mg/dL (Neg-Trace); Specific Gravity,Urine 1.026 (1.010-1.025); Urobilinogen,Urine Normal (Normal)
[2017-06-09 15:23] LABS: Bacteria,Urine None Seen per hpf (None-Few); Hyaline Casts,Urine None Seen per lpf (None-Few); RBC,Urine 0-3 per hpf (0-3); Squamous Epithelial Cell,Urine Many per lpf (None-Few)
[2017-06-09 15:31] LABS: Sodium, Urine 18.7 mEq/L
[2017-06-09] MEDS: 0.9 % Sodium Chloride 1,000 ML IVC SCH ×2 (16:45→23:42)
[2017-06-09] MEDS ORDERED: 0.9 % Sodium Chloride 500 ML IVC ONE (17:43)
[2017-06-09] MEDS ORDERED: 0.9 % Sodium Chloride 500 ML ONE (17:45)
[2017-06-09 18:17] LABS: VBG HCO3 16 mEq/L (21-27); VBG PCO2 29 mmHg (41-51); VBG PH 7.37 pH Units (7.32-7.42); VBG PO2 152 mmHg (25-50)
--- NOTE | 2017-06-09 18:42 | General Surgery Consult Note ---
Date of Encounter: 06/09/17 Time of Encounter: 18:40 Assessment and Plan (1) Diarrhea Current Visit: Yes Status: Acute patients last episode of diarrhea this am, monitor Qualifiers: Diarrhea type: unspecified type Qualified Code(s): R19.7 - Diarrhea, unspecified (2) Hypotension Current Visit: Yes Status: Acute spoke with ED and hospitalist and the abdomen is not the source of hypotension as patient has HARRY/renal failure and unable to do CT with contrast, recommend stat Echo to evaluate for right heart strain/PE additionally, patient has CAD and cardiac stents - recommend cardiac workup would add pressors as needed, if continues to be hypotensive should have arterial line placed Qualifiers: Hypotension type: unspecified hypotension type Qualified Code(s): I95.9 - Hypotension, unspecified (3) Lactic acidosis Current Visit: Yes Status: Acute has improved slightly with rehydration, likely will be slow to resolve due to kidney injury trend (4) Dehydration Current Visit: Yes Status: Acute would place hernadez for accurate I/O's or ensure patient completely understands needs to save all urine for nursing I/O's (5) Nausea & vomiting Current Visit: Yes Status: Acute currently no nausea or emesis CT personally reviewed by myself and mild small bowel distention with fluid and moderate gastric distention patient not nauseated currently and has absolutely no abdominal pain on exam if becomes nauseated or has emesis ok to place ngt and obtain KUB per patient his abdominal girth, shape and size it at his baseline recommend prn antiemetics WBC normal, no bandemia, afebrile no reported abdominal pain or on exam patient had bm this am Qualifiers: Vomiting type: unspecified Vomiting Intractability: non-intractable Qualified Code(s): R11.2 - Nausea with vomiting, unspecified History of Present Illness Consult date: 06/09/17 Reason for consult: abdominal pain Requesting physician: Shelton Patterson History of present illness: Patient is a 71 yo male who complains of three days of midabdominal pain without radiation, pain waxes and waned from sharp to dull. He currently reports being pain free. He has had nausea and emesis for three days as well, last emesis earlier to day, currently no nausea. He denies hematemesis. He reports diarrhea for the last three days, last bm this am. Denies melena or hemachezia. Patient states his abdominal girth, size and shape is his normal baseline and he is not distended. He denies any recent sick contacts. He has not taken any long trips recently. He has COPD and denies SOB, chest pain. He denies heart palpatations or dizziness. He denies dysuria or hematuria. Denies any previous blood clots Past Med Surg Social Fam HX - Past Medical History Source: patient Medical history: COPD, coronary artery disease, diabetes, GERD, hyperlipidemia, hypertension, renal disease, other Psychiatric history: no psych history - Past Surgical History Surgical History: angioplasty/stent, cholecystectomy, other (hernia repair) - Social History Smoking Status: Former smoker Smokeless Tobacco Status: No Alcohol use: none Drug use: none - Family History Mother History Unknown: Yes Hx Family Cardiac Disorders: Yes (denies [facility] clotting bleeding disorders) Medications and Allergies Albuterol Sulfate [Ventolin Hfa] 2 puff IH Q4H PRN 06/07/16 [History] Aspirin 81 mg PO DAILY 06/07/16 [History] Citalopram [CeleXA] 20 mg PO DAILY 06/07/16 [History] CloNIDine HCl [Kapvay] 0.1 mg PO HS 06/07/16 [History] Clopidogrel [Plavix] 75 mg PO DAILY 06/07/16 [History] Famotidine [Pepcid] 40 mg PO DAILY 06/07/16 [History] Insulin ASPART [Novolog Flexpen] 0 unit SQ TIDWM 06/07/16 [History] Insulin Glargine,Hum.rec.anlog [Lantus Solostar] 50 unit SQ HS 06/07/16 [History ] Lovastatin 40 mg PO DAILY 06/07/16 [History] Metformin HCl [Glucophage] 1,000 mg PO BID 06/07/16 [History] Aclidinium [place] [Tudorza Pressair] 1 puff IH BID 10/19/16 [History] Amlodipine Besylate 10 mg PO DAILY 10/19/16 [History] Levothyroxine Sodium [Levoxyl] 88 mcg PO 0630 10/19/16 [History] Lisinopril/Hydrochlorothiazide [Zestoretic 20-25 mg Tablet] 1 tab PO DAILY 10/19 [History] Metoprolol [Lopressor] 25 mg PO BID 10/19/16 [History] Insulin Glargine,Hum.rec.anlog [Saba Vigil] 35 unit SQ DAILY 06/09/17 [ History] 3 Allergy/AdvReac Type Severity Reaction Status Date / Time No Known Allergies Allergy Verified 10/19/16 09:54 Review of Systems All systems PM: reviewed and no additional remarkable complaints except as stated All systems PM: The remainder of the systems were reviewed and are negative General Surgery Exam Initial Vital Signs Temp Pulse Resp BP Pulse Ox 98.0 F 94 28 102/86 94 06/09/17 13:06 06/09/17 13:06 06/09/17 13:06 06/09/17 13:06 06/09/17 13:06 - General physical appearance well developed, well nourished, no distress, obese - Eyes PERRL, normal ocular movement - ENT normal mucosa, normocephalic - Neck trachea midline - Respiratory normal expansion, clear to auscultation - Cardiovascular Cardiovascular exam: Present: tachycardia, no murmurs/rubs/gallops - Abdomen Abdomen general surgery: Present: bowel sounds present, soft, non tender. Absent: distended, guarding, rebound - Integumentary Integumentary general surgery: Present: warm and dry, no abnormal pigmentation - Neurologic Present: CN 2-12 grossly intact - Musculoskeletal Present: normal posture - Psychiatric Psychiatric general surgery: Present: A&Ox3, speech is normal Exam Initial Vital Signs Temp Pulse Resp BP Pulse Ox 98.0 F 94 28 102/86 94 06/09/17 13:06 06/09/17 13:06 06/09/17 13:06 06/09/17 13:06 06/09/17 13:06 Results - Labs 06/09/17 13:34 06/09/17 15:55 Short CBC 06/09/17 Range/Units 13:34 WBC 7.6 (4.3-11.1) K/mcL Hgb 12.7 L (12.9-16.9) g/dL Hct 38.2 (37.5-50.1) % Plt Count 225 (140-400) K/mcL Neutrophils # 3.5 (1.6-8.9) K/mcL BMP 06/09/17 06/09/17 Range/Units 15:55 13:34 Sodium 135 L (136-145) mEq/L Potassium 3.9 (3.5-5.1) mEq/L Chloride 103 (98-107) mEq/L Carbon Dioxide 16 L (23-29) mEq/L BUN 63 H (8-23) mg/dL Creatinine 2.39 H 2.66 H (0.70-1.30) mg/dL Glucose 249 H (70-105) mg/dL Calcium 7.9 L (8.6-10.3) mg/dL Cardiac Enzymes 06/09/17 Range/Units 13:34 Troponin I 0.06 H* (< 0.04) ng/mL Liver Function 06/09/17 06/09/17 Range/Units 14:17 13:34 Total Bilirubin 0.3 0.4 (0.3-1.0) mg/dL Direct Bilirubin 0.1 (0.0-0.2) mg/dL AST 148 H 125 H (13-39) Units/L ALT 105 H 90 H (7-52) Units/L Alkaline Phosphatase 37 36 (34-104) Units/L Albumin 3.7 3.5 (3.5-5.7) g/dL Urine 06/09/17 Range/Units 15:14 Urine Color Yellow (Yellow) Urine Clarity Cloudy A (Clear) Urine pH 5.0 (5.0-8.0) pH Units Ur Specific [place] 1.026 H (1.010-1.025) Urine Protein 100 H (Neg-Trace) mg/dL Urine Glucose (UA) 500 H (Normal) mg/dL Vital Signs Temp Pulse Resp BP Pulse Ox 06/09/17 18:45 98 20 105/73 91 06/09/17 17:30 104 23 99/55 94 06/09/17 16:10 98.3 F 101 23 103/72 92 06/09/17 15:19 105 24 127/92 96 06/09/17 13:06 98.0 F 94 28 102/86 94 Intake and Output 06/09/17 06/09/17 06/09/17 07:59 15:59 23:59 Intake Total 1000 / 1000 1500 / 1500 Balance 1000 / 1000 1500 / 1500 Intake: IV Fluids 1000 / 1000 1500 / 1500 0.9 % Sodium Chloride 1,000 ML 1000 / 1000 1000 / 1000 @ 3750 mls/hr IVC .Q16M ONE Rx# :[id number] 0.9 % Sodium Chloride 500 ML @ 500 / 500 1875 mls/hr IVC .Q16M ONE Rx#: [id number] Other: Weight 72.575 kg Blood Glucose* 240 Patient Weight 06/09/17 23:59 Weight 72.575 kg - Imaging CT scan - abdomen: report reviewed, image reviewed CT scan - pelvis: report reviewed, image reviewed Consult Discharge Plan - Plan Referrals: Suzan Kenny, [employer]NA[employer] [Primary Care Provider] -
--- NOTE | 2017-06-09 19:22 | Internal Med History&Physical ---
Date of Encounter: 06/10/17 Time of Encounter: 19:00 Internal Medicine - H&P: HPI Chief complaint: abdominal pain History of present illness: Mr. Toscano is a 71 year old male history of COPD , diabetes who presents with complaint of abdominal pain, nausea and vomiting. Patient notes for the last 3 days he has had recurrent nausea, vomiting and diarrhea. Patient notes she is unable to keep down any food or medications. Patient denies recent travel or sick contacts. Patient denies any new foods. Patient denied fever, chills or rhinitis. He denies melena or hematochezia. She denies dysuria but does perfuse watery diarrhea. At this time patient denies abdominal pain. Patient to be admitted for further evaluation. Patient evaluated at bedside in the emergency department. I Past Med Surg Social Fam HX - Past Medical History Medical history: COPD, coronary artery disease, diabetes, GERD, hyperlipidemia, hypertension, renal disease, other Psychiatric history: no psych history - Past Surgical History Surgical History: angioplasty/stent, cholecystectomy, other (hernia repair) - Social History Smoking Status: Former smoker Smokeless Tobacco Status: No Alcohol use: none Drug use: none - Family History Mother History Unknown: Yes Hx Family Cardiac Disorders: Yes (denies [facility] clotting bleeding disorders) Internal Medicine - H&P: Meds Albuterol Sulfate [Ventolin Hfa] 2 puff IH Q4H PRN 06/07/16 [History] Aspirin 81 mg PO DAILY 06/07/16 [History] Citalopram [CeleXA] 20 mg PO DAILY 06/07/16 [History] CloNIDine HCl [Kapvay] 0.1 mg PO HS 06/07/16 [History] Clopidogrel [Plavix] 75 mg PO DAILY 06/07/16 [History] Famotidine [Pepcid] 40 mg PO DAILY 06/07/16 [History] Insulin ASPART [Novolog Flexpen] 0 unit SQ TIDWM 06/07/16 [History] Insulin Glargine,Hum.rec.anlog [Lantus Solostar] 50 unit SQ HS 06/07/16 [History ] Lovastatin 40 mg PO DAILY 06/07/16 [History] Metformin HCl [Glucophage] 1,000 mg PO BID 06/07/16 [History] Aclidinium [place] [Tudorza Pressair] 1 puff IH BID 10/19/16 [History] Amlodipine Besylate 10 mg PO DAILY 10/19/16 [History] Levothyroxine Sodium [Levoxyl] 88 mcg PO 0630 10/19/16 [History] Lisinopril/Hydrochlorothiazide [Zestoretic 20-25 mg Tablet] 1 tab PO DAILY 10/19 [History] Metoprolol [Lopressor] 25 mg PO BID 10/19/16 [History] Insulin Glargine,Hum.rec.anlog [Toujeo Solostar] 35 unit SQ DAILY 06/09/17 [ History] 3 Allergy/AdvReac Type Severity Reaction Status Date / Time No Known Allergies Allergy Verified 10/19/16 09:54 All Systems PM: A 10-system review of systems was performed and is negative for pertinent findings except as documented above in the HPI. Review of systems: All systems reviewed and negative for this particular admission - Constitutional Vitals: Temp Pulse Resp BP Pulse Ox 98.3 F 98 20 105/73 91 06/09/17 16:10 06/09/17 18:45 06/09/17 18:45 06/09/17 18:45 06/09/17 18:45 Internal Med - H&P Results - Labs CBC & Chem 7: 06/09/17 21:11 06/09/17 21:11 Labs: Short CBC 06/09/17 Range/Units 13:34 WBC 7.6 (4.3-11.1) K/mcL Hgb 12.7 L (12.9-16.9) g/dL Hct 38.2 (37.5-50.1) % Plt Count 225 (140-400) K/mcL Neutrophils # 3.5 (1.6-8.9) K/mcL BMP 06/09/17 06/09/17 13:34 15:55 Sodium 135 L Potassium 3.9 Chloride 103 Carbon Dioxide 16 L BUN 63 H Creatinine 2.66 H 2.39 H Glucose 249 H Calcium 7.9 L Cardiac Enzymes 06/09/17 06/09/17 Range/Units 13:34 18:17 Troponin I 0.06 H* 0.07 H* (< 0.04) ng/mL Liver Function 06/09/17 06/09/17 Range/Units 13:34 14:17 Total Bilirubin 0.4 0.3 (0.3-1.0) mg/dL Direct Bilirubin 0.1 (0.0-0.2) mg/dL AST 125 H 148 H (13-39) Units/L ALT 90 H 105 H (7-52) Units/L Alkaline Phosphatase 36 37 (34-104) Units/L Albumin 3.5 3.7 (3.5-5.7) g/dL Urine 06/09/17 Range/Units 15:14 Urine Color Yellow (Yellow) Urine Clarity Cloudy A (Clear) Urine pH 5.0 (5.0-8.0) pH Units Ur Specific [place] 1.026 H (1.010-1.025) Urine Protein 100 H (Neg-Trace) mg/dL Urine Glucose (UA) 500 H (Normal) mg/dL - ABG Interpretation ABG results: 06/09/17 06/09/17 14:31 18:12 VBG pH 7.30 L 7.37 VBG pCO2 34 L 29 L VBG pO2 36 152 H VBG HCO3 17 L 16 L - Impressions ITS Impressions Abdomen/Pelvis CT 06/09/17 13:21 IMPRESSION: 1. Mildly dilated loops of small bowel in the left mid abdomen likely representing ileus versus developing partial small bowel obstruction. No definite transition point noted. No evidence of pneumatosis. 2. Cholecystectomy. 3. Fatty liver. 4. Diverticulosis. D/ / 06/09/2017 15:52:42 Kj Campa MD / [facility] Interpreting Provider: Kj Campa MD Chest CT 06/09/17 13:45 IMPRESSION: Airspace opacity at the left lung base, the appearance of which is most suggestive of Elekta severe scarring. Mild pneumonia remains in the differential. Noncalcified nodule measuring 5 mm within the anterior aspect of the right lower lobe. Follow-up recommendations below. RECOMMENDATIONS: Fleischner Society guidelines for follow-up and management of incidentally detected pulmonary nodules: Single Solid Nodule: Nodule size less than 6 mm In a low-risk patient, no routine follow-up. In a high-risk patient, optional CT at 12 months. - Low risk patients include individuals with minimal or absent history of smoking and other known risk factors. - High risk patients include individuals with a history or smoking or known risk factors. Radiology 2017 http://pubs.[facility]na.org/doi/full/10.1148/radiol.[email or web address] D/ / Donald Luis MD / oDnald Luis MD Interpreting Provider: Donald Luis MD Chest X-Ray 06/09/17 14:28 IMPRESSION: Linear opacities within the left lung base most compatible with atelectasis. No definite focal consolidation identified. D/ / Erick Zamudio MD / Erick Zamudio MD Interpreting Provider: Erick Zamudio MD - Assessment and plan (1) Lactic acidosis Current Visit: Yes Status: Acute Assessment and plan: Called by ER physician for admission. At the time of initial admission I was told patient has an elevated lactic acid. No CT scan chest, abdomen and pelvis , repeat troponin were completed. At that time I have asked for completion of emergent workup. Patient seen and evaluated at bedside in the Emergent Department. Patient complains of distended abdomen but denies abdominal pain at this time. Patient denies shortness of breath but appears to be hyperventilating due to acidemia, shallow breathing from distended abdomen. Etiology of elevated lactic acid to be determined. May be due severe hypoperfusion given history of nausea, vomiting and diarrhea x 3day possible infectious source. I have ordered CBC with manual diff showing bandemia. Patient meets criteria for sepsis. Will give empiric zosyn for intra-abdominal process given primary complaint, renal dosing, pending blood cultures, stool cultures. Upon presentation patient has distended abdomen, hypotensive, hypoxic per ER documentation there were concerns for ischemia. At this time elevated lactic acid has decreased from 7-5 on normal saline and sodium bicarbonate. Upon my evaluation in the emergency department patient pressure cuff removed from the left wrist and placed on the left forearm. Repeat blood pressure at bedside showed a mean arterial pressure of approximately 57, oxygen saturation of 91 on 3 Liters nasal cannula. I have evaluated the patient with Dr. Stauffer at bedside. Concern given to the fact that blood pressure is labile, MAP < 65 and unable to perform the most optimal imaging study which would include CTA chest and abdomen due to renal failure. Given the fact we were not able to obtain the most optimal contrast study I have asked Dr. Couch to assist in surgical evaluation. Dr. Couch prompt evaluation and recommendations are much appreciated. Reduction in systolic blood pressure may be minimized due too marked vasoconstriction leading to such an elevated lactic acid At this time per ER report patient has received over 2 L normal saline and bicarbonate. At this time patient does not appear to have impaired mental status has made urine per ER report Patient also has history of diabetes, beta hydroxybutyric not detectable, urine ketones are trace and glucose is 249. Patient also has history of Khalida fundoplication over 6 months ago. Per patient no complications. I have called the radiologist concrete floor installer to discuss study particulary the stomach. No signs of gastric wall thickening, signs of enteritis, possible ileus, non acute findings on the non contrasted study. Patient denies alcohol use. patient also notes he has not been able to keep down his metformin. Given patient has not taken his metformin or last 24 hours and has been previously taking it as prescribed this is likely this is contributing to lactic acidosis. (2) HARRY (acute kidney injury) Current Visit: Yes Status: Acute Assessment and plan: Acute on chronic renal failure Patient's serum creatinine in 2017 feels approximately 1.32. Continue goal-directed fluid resuscitation, strict ins and outs, Place Padilla catheter in a critically ill patient, for strict ins and outs Avoid nephrotoxins (3) Abdominal pain Current Visit: Yes Status: Acute Assessment and plan: Abdominal pain. Patient complaint abdominal pain over the last 2-3 days. Upon evaluation in the emergency department patient currently denies abdominal pain but notes she has abdominal distention. Patient has CT abdomen and pelvis without contrast which showed ileus versus possible early small bowel obstruction. Appreciate surgical recommendations. This time no acute intervention needed. I have called radiology discussed case. This time some evidence of enteritis, ileus with no acute findings on this noncontrasted study. Continue nothing by mouth status, bowel rest Qualifiers: Abdominal location: generalized Qualified Code(s): R10.84 - Generalized abdominal pain (4) Hypotension Current Visit: Yes Status: Acute Assessment and plan: Patient presented with hypotension per ER documentation Pulmonary evaluation of the bedside patient was needed to pressure of approximately 57 Patient continues to receive fluid resuscitation Qualifiers: Hypotension type: unspecified hypotension type Qualified Code(s): I95.9 - Hypotension, unspecified (5) Elevated troponin Current Visit: Yes Status: Acute Assessment and plan: Elevated troponin Patient denies chest pain QTC of 424, sinus rhythm, inverted T waves in lateral leads Cycle serial troponin, continues secured entrance monitor Per ER documentation stat echo performed at request which showed no acute abnormalities, formal echo reading pending. Probable demand ischemia in the setting of nausea, vomiting, profound hypovolemia (6) Elevated d-dimer Current Visit: Yes Status: Acute Assessment and plan: Elevated d-dimer. Patient has hypoxemia. Patient does have history of COPD. Patient had CT w/o chest that showed patchy airspace opacities suggestive of atelectasis and/or scarring. I have ordered a VQ scan stat which is negative for pulmonary embolism., Check lower extremity ultrasound stat A VQ scan and lower extremity ultrasound negative and hold continuous heparin infusion (7) Abnormal liver enzymes Current Visit: Yes Status: Acute Assessment and plan: Abnormal liver enzymes. No recent laboratory data for comparison CT scan shows evidence of fatty liver, patient status post cholecystectomy At risk for ischemic hepatitis given severe hypovolemia Repeat CMP (8) DVT prophylaxis Current Visit: Yes Status: Acute Assessment and plan: SCD's - Time Spent With Patient Total time spent is greater than 50% in coordination of care (as documented) at patient's floor/unit and/or counseling patient:
[2017-06-09] MEDS ORDERED: Heparin 25,000 UNIT/500 ML D5W 25,000 UNIT/500 ML BAG IVC SCH (19:30)
[2017-06-09] MEDS ORDERED: *HR* Heparin 5,000 UNIT/ML VIAL IVP PRN ×2 (19:30)
[2017-06-09] MEDS ORDERED: *HR* Heparin 5,000 UNIT/ML VIAL IVP ONE (19:30)
[2017-06-09 21:23] LABS: Hematocrit 34.5 % (37.5-50.1); Hemoglobin 11.6 g/dL (12.9-16.9); Mean Corpuscular HGB Conc 33.6 g/dL (31.6-35.5); Mean Corpuscular Hemoglobin 30.7 pg (28.0-33.3); Mean Corpuscular Volume 91.3 fL (83.0-100.0); Mean Platelet Volume 11.5 fL (9.4-12.4); Monocytes # 0.6 K/mcL (0.0-1.3); Platelet Count 179 K/mcL (140-400); Red Blood Count 3.78 M/mcL (4.19-5.50); Red Cell Distribution Width 14.5 % (11.5-14.5)
[2017-06-09 21:29] LABS: INR 1.4; Prothrombin Time 15.3 Seconds (9.4-12.1)
[2017-06-09] MEDS ORDERED: Dextrose Gel 15 GM/37.5 ML TUBE PO PRN ×2 (21:30)
[2017-06-09] MEDS ORDERED: *HR* Dextrose 50 % in Water (Syg) 50 ML SYRINGE IVP PRN (21:30)
[2017-06-09] MEDS ORDERED: D5% in Water 1,000 ML IVC PRN (21:30)
[2017-06-09 21:31] LABS: Activated Partial Thrombo Time 27.8 Seconds (26.0-36.0)
[2017-06-09 21:42] LABS: Alanine Aminotransferase 149 Units/L (7-52); Albumin 3.2 g/dL (3.5-5.7); Albumin/Globulin Ratio 1.3 (1.1-2.2); Alkaline Phosphatase 33 Units/L (34-104); Aspartate Amino Transferase 204 Units/L (13-39); BUN/Creatinine Ratio 34 (6-26); Bilirubin,Total 0.3 mg/dL (0.3-1.0); Blood Urea Nitrogen 67 mg/dL (8-23); Calcium 7.1 mg/dL (8.6-10.3); Carbon Dioxide 14 mEq/L (23-29); Chloride 111 mEq/L (98-107); Globulin 2.4 g/dL (2.4-3.5); Glucose 145 mg/dL (70-105); Osmolality,Calculated 304 (280-300); Potassium 3.6 mEq/L (3.5-5.1); Sodium 136 mEq/L (136-145); Total Protein 5.6 g/dL (6.4-8.9); eGFR For African Americans 41 (> 60); eGFR For Non-African Americans 34 (> 60)
[2017-06-09 21:47] LABS: Lymphocytes # 2.4 K/mcL (0.6-4.6)
[2017-06-09 21:48] LABS: Dohle Bodies Present (Not Present); Large Platelets Present (Not Present)
[2017-06-09 21:57] LABS: Reactive Lymphocytes Present (Not Present)
[2017-06-09 22:50] LABS: Troponin I 0.07 ng/mL (< 0.04)
[2017-06-09] MEDS: Ipratropium/Albuterol Neb 3 ML IH SCH (23:52)
[2017-06-10 00:04] LABS: Adenovirus F 40/41 PCR Not detected (Not detect); Astrovirus PCR Not detected (Not detect); Campylobacter by PCR Not detected (Not detect); Cryptosporidium by PCR Not detected (Not detect); Cyclospora cayetanensis PCR Not detected (Not detect); E. coli O157 by PCR Not detected (Not detect); Entamoeba histolytica PCR Not detected (Not detect); Enteroaggregative E.coli(EAEC) Not detected (Not detect); Enteropathogenic E.coli(EPEC) ***DETECTED*** (Not detect); Enterotoxigenic E.coli (ETEC) Not detected (Not detect); Giardia lamblia PCR Not detected (Not detect); Norovirus GI/GII PCR Not detected (Not detect); Plesiomonas shigelloides PCR Not detected (Not detect); Rotavirus A PCR Not detected (Not detect); Salmonella PCR Not detected (Not detect); Sapovirus PCR Not detected (Not detect); Shig/EnteroinvasiveE coli EIEC Not detected (Not detect); Shigalike tox-prod E coli STEC Not detected (Not detect); Vibrio PCR Not detected (Not detect); Vibrio cholerae PCR Not detected (Not detect); Yersinia enterocolitica PCR Not detected (Not detect)
[2017-06-10] MEDS ORDERED: Pantoprazole 40 MG VIAL IVP ONE (00:14)
[2017-06-10 00:27] LABS: Lipase < 3 Units/L (11-82)
[2017-06-10] MEDS: Insulin LISPRO 300 UNITS/3 ML VIAL SQ SCH ×4 (00:31→17:51)
[2017-06-10] MEDS: 0.9 % Sodium Chloride 1,000 ML IVC SCH ×2 (00:37→12:55)
[2017-06-10] MEDS: Ipratropium/Albuterol Neb 3 ML IH SCH ×6 (04:24→23:36)
[2017-06-10] MEDS ORDERED: Piperacillin/Tazobactam 3.375 GM in 0.9 % Sodium Chloride Mini Bag 100 ML IVPB SCH (06:00)
[2017-06-10 08:35] LABS: Hemoglobin 10.5 g/dL (12.9-16.9); Mean Corpuscular HGB Conc 32.8 g/dL (31.6-35.5); Mean Corpuscular Hemoglobin 29.8 pg (28.0-33.3); Mean Corpuscular Volume 90.9 fL (83.0-100.0); Platelet Count 172 K/mcL (140-400); Red Blood Count 3.52 M/mcL (4.19-5.50); Red Cell Distribution Width 14.8 % (11.5-14.5)
[2017-06-10 08:54] LABS: Albumin/Globulin Ratio 1.2 (1.1-2.2); Bilirubin,Total 0.3 mg/dL (0.3-1.0); Calcium 6.7 mg/dL (8.6-10.3); Globulin 2.6 g/dL (2.4-3.5); Potassium 3.8 mEq/L (3.5-5.1); Total Protein 5.6 g/dL (6.4-8.9)
[2017-06-10 09:02] LABS: Large Platelets Present (Not Present); Lymphocytes # 0.8 K/mcL (0.6-4.6); Monocytes # 1.4 K/mcL (0.0-1.3); Neutrophils # 11.4 K/mcL (1.6-8.9); Platelet Estimate Normal (Normal)
--- NOTE | 2017-06-10 12:49 | Nephrology Consult Note ---
Date of Encounter: 06/10/17 Time of Encounter: 12:00 Assessment and Plan (1) HARRY (acute kidney injury) Current Visit: Yes Status: Acute Elevated SCr in the setting of N/V/P with decreased po intake leading to profound volume depletion Agree with continued IVF for today No acute indication for SIDING APPLICATOR at this time UOP noted at 400cc yesterday and already 950cc today so far Avoid nephrotoxins if possible CPK WNL Urine sodium and UA consistent with pre-renal state (2) Lactic acidosis Current Visit: Yes Status: Resolved Resolved (3) Metabolic acidosis Current Visit: Yes Status: Acute from HARRY and lactic acidosis (now resolved), will monitor need for more bicarb History of Present Illness - Reason for Consult Consult date: 06/10/17 Acute Kidney Injury, Chronic Kidney Disease Requesting physician: Gaurav Stauffer - History of Present Illness 71 y o male with PMH of DM, HTN, COPD and CAD s/p nora fundoplication last year admitted with 3 days of abdominal pain with N/V/D. He was noted hypotension on presentation with SCr elevated at 2.66, GFR 24, baseline typically 1.32, GFR 54 as of last year. Lactic acid also noted drastically elevated at 7.3, initial conversations yesterday with the ED team centered around risks and benefits of imaging with contrast which might worsen renal fxn. Ct abd/pelvis finally done without contrast showing ileus vs partial sBO. Pt received 2 liter boluses of fluids along with some bicarb and was making urine. Pt seen and examined today doing better overall. Lactic acid resolved with volume repletion at 3.5liters over yesterday. Past Med Surg Social Fam HX - Past Medical History Medical history: COPD, coronary artery disease, diabetes, GERD, hyperlipidemia, hypertension, renal disease, other Psychiatric history: no psych history - Past Surgical History Surgical History: angioplasty/stent, cholecystectomy, other (hernia repair) - Social History Smoking Status: Former smoker Smokeless Tobacco Status: No Alcohol use: none Drug use: none - Family History Mother History Unknown: Yes Hx Family Cardiac Disorders: Yes (denies [facility] clotting bleeding disorders) Medications and Allergies Albuterol Sulfate [Ventolin Hfa] 2 puff IH Q4H PRN 06/07/16 [History] Aspirin 81 mg PO DAILY 06/07/16 [History] Citalopram [CeleXA] 20 mg PO DAILY 06/07/16 [History] CloNIDine HCl [Kapvay] 0.1 mg PO HS 06/07/16 [History] Clopidogrel [Plavix] 75 mg PO DAILY 06/07/16 [History] Famotidine [Pepcid] 40 mg PO DAILY 06/07/16 [History] Insulin ASPART [Novolog Flexpen] 0 unit SQ TIDWM 06/07/16 [History] Insulin Glargine,Hum.rec.anlog [Lantus Solostar] 50 unit SQ HS 06/07/16 [History ] Lovastatin 40 mg PO DAILY 06/07/16 [History] Metformin HCl [Glucophage] 1,000 mg PO BID 06/07/16 [History] Aclidinium [place] [Tudorza Pressair] 1 puff IH BID 10/19/16 [History] Amlodipine Besylate 10 mg PO DAILY 10/19/16 [History] Levothyroxine Sodium [Levoxyl] 88 mcg PO 0630 10/19/16 [History] Lisinopril/Hydrochlorothiazide [Zestoretic 20-25 mg Tablet] 1 tab PO DAILY 10/19 [History] Metoprolol [Lopressor] 25 mg PO BID 10/19/16 [History] Insulin Glargine,Hum.rec.anlog [Toujeo Solostar] 35 unit SQ DAILY 06/09/17 [ History] 3 Allergy/AdvReac Type Severity Reaction Status Date / Time No Known Allergies Allergy Verified 10/19/16 09:54 Review of Systems All Systems: reviewed and no additional remarkable complaints except as stated ( 10 systems reviewed) Exam - Vital Signs Vital signs: Initial Vital Signs Temp Pulse Resp BP Pulse Ox 98.0 F 94 28 102/86 94 06/09/17 13:06 06/09/17 13:06 06/09/17 13:06 06/09/17 13:06 06/09/17 13:06 Vital Signs - Last 8 Hours Temp Pulse Resp BP Pulse Ox 06/10/17 11:14 97.9 F 110 20 106/59 94 06/10/17 08:22 18 95 06/10/17 07:54 98.3 F 112 20 112/55 95 Intake and Output 06/09/17 06/10/17 06/10/17 23:59 07:59 15:59 Intake Total 1000 / 2500 0 / 0 0 / 0 Output Total 400 / 400 500 / 500 450 / 450 Balance 600 / 2100 -500 / -500 -450 / -450 Intake: IV Fluids 1000 / 1000 0.9 % Sodium Chloride 1,000 ML 1000 / 1000 @ 150 mls/hr IVC .Q6H40M [facility] Rx #:[id number] Oral 0 / 0 0 / 0 0 / 0 Tube Feeding 0 / 0 Output: Urine 0 / 0 Catheter 400 / 400 500 / 500 450 / 450 Other: Meal NPO Stool Size Moderate Stool Consistency liquid Stool Color Brown Weight 75.4 kg Blood Glucose* 109 195 322 - General Appearance General appearance: well-developed, well-nourished, fatigue EENT: ATNC, mucous membranes dry Neck: no JVD, supple Respiratory: clear Cardiology: no edema, normal S1, normal S2 Gastrointestinal: no tenderness (soft), no guarding Integumentary: warm and dry Neurologic: no focal deficit Musculoskeletal: no deformities Psychiatric: mood/affect appropriate Results - Lab Results 06/11/17 12:02 06/11/17 02:45 Most recent lab results Calcium 6.7 mg/dL (8.6-10.3) L 06/10/17 08:18 Urine Creatinine 165 mg/dL 06/09/17 15:14 Urine Sodium 18.7 mEq/L 06/09/17 15:14 Consult Discharge Plan - Plan Referrals: Suzan Kenny FARM REPORTER [Primary Care Provider] - 06/14/17 11:00 am
--- NOTE | 2017-06-10 15:06 | Internal Med Progress Note ---
Date of Encounter: 06/10/17 Time of Encounter: 15:00 - Assessment and plan (1) Enteropathogenic Escherichia coli infection Current Visit: Yes Status: Acute Assessment and plan: Continue Zosyn. We will advance to clear liquid diet and transition to oral antibiotics tomorrow if clinically better. (2) Acute respiratory failure with hypoxemia Current Visit: Yes Status: Acute Assessment and plan: CT chest without contrast is suggestive of the left lower l-obe scarring but no significant parenchymal abnormalities. VQ scan was negative negative for high risk of pulmonary embolus. Off oxygen he desaturated to 88-89% during my exam. The etiology of hypoxemia is unclear. We will obtain arterial blood gas on room air and confirm hypoxemia. Hold IV fluids meanwhile. Noted history of COPD. May have chronic respiratory failure from this. (3) Lactic acidosis Current Visit: Yes Status: Resolved (4) HARRY (acute kidney injury) Current Visit: Yes Status: Acute Assessment and plan: Improved with IV fluids. Start clear liquids.. Likely prerenal etiology. (5) Abdominal pain Current Visit: Yes Status: Resolved (6) Hypotension Current Visit: Yes Status: Acute Assessment and plan: Improved with IV fluids Qualifiers: Hypotension type: unspecified hypotension type Qualified Code(s): I95.9 - Hypotension, unspecified (7) Elevated troponin Current Visit: Yes Status: Acute Assessment and plan: Patient denies angina. EKG shows QTC of 424, sinus rhythm, inverted T waves in lateral leads. Cycle serial troponin, continues coding specialist Formal echo reading pending. Probable demand ischemia in the setting of nausea, vomiting, profound hypovolemia. Non sustained ventricular tachycardia noted today, 10 beats. (8) Elevated d-dimer Current Visit: Yes Status: Acute Assessment and plan: Negative VQ scan (9) Abnormal liver enzymes Current Visit: Yes Status: Acute (10) DVT prophylaxis Current Visit: Yes Status: Acute (11) Nonsustained ventricular tachycardia Current Visit: Yes Status: Acute Assessment and plan: Add potassium and magnesium to morning labs Resume aspirin and Plavix and beta elise - Time Spent With Patient Total time spent is greater than 50% in coordination of care (as documented) at patient's floor/unit and/or counseling patient: 25 - 35 minutes - Subjective Interval history: She reports resolution off his abdominal pain, nausea and vomiting. No nursing issues noted. He reports nasal stuffiness from oxygen - Constitutional Vitals: Temp Pulse Resp BP Pulse Ox 97.9 F 110 20 106/59 94 06/10/17 11:14 06/10/17 11:14 06/10/17 11:14 06/10/17 11:14 06/10/17 11:14 Exam: Physical exam Gen: Comfortable, laying in bed, in no visible distress HEENT: Normocephalic, atraumatic. No conjunctival icterus. Moist oral mucosa. Neck: Supple Lungs: Clear to auscultation, no foreign sounds Heart: Normal S1-S2, no murmurs rubs or gallops Abdomen: Normoactive bowel sounds, no guarding rigidity or tenderness : Padilla catheter noted Extremities: No edema clubbing or cyanosis Neuro: Alert oriented 3, no focal deficits Skin: No skin lesions Internal Medicine: Result - Labs CBC & Chem 7: 06/10/17 08:18 06/10/17 08:18 Labs: Short CBC 06/09/17 06/10/17 Range/Units 21:11 08:18 WBC 11.1 13.6 H (4.3-11.1) K/mcL Hgb 11.6 L 10.5 L (12.9-16.9) g/dL Hct 34.5 L 32.0 L (37.5-50.1) % Plt Count 179 172 (140-400) K/mcL Neutrophils # 7.0 11.4 H (1.6-8.9) K/mcL BMP 06/09/17 06/10/17 21:11 08:18 Sodium 136 139 Potassium 3.6 3.8 Chloride 111 H 114 H Carbon Dioxide 14 L 13 L BUN 67 H 60 H Creatinine 1.98 H 1.62 H Glucose 145 H 287 H Calcium 7.1 L 6.7 L Cardiac Enzymes 06/09/17 06/10/17 06/10/17 Range/Units 21:11 03:11 08:18 Troponin I 0.07 H* 0.07 H* 0.06 H* (< 0.04) ng/mL Liver Function 06/09/17 06/10/17 Range/Units 21:11 08:18 Total Bilirubin 0.3 0.3 (0.3-1.0) mg/dL AST 204 H 102 H (13-39) Units/L ALT 149 H 118 H (7-52) Units/L Alkaline Phosphatase 33 L 38 (34-104) Units/L Albumin 3.2 L 3.0 L (3.5-5.7) g/dL - ABG Interpretation ABG results: PT/INR, D-dimer PT 15.3 Seconds (9.4-12.1) H 06/09/17 21:11 D-Dimer 5051 ng/mLFEU (0-500) H 06/09/17 18:34 Consult Discharge Plan - Plan Referrals: Suzan Kenny, UNDERWRITING ASSISTANT [Primary Care Provider] -
[2017-06-10 15:53] LABS: ABG Base Excess -9 mEq/L (-2 to 3); ABG HCO3 14 mEq/L (21-27); ABG Oxygen Saturation 93 % (95-98); ABG PCO2 25 mmHg (35-45); ABG PH 7.38 pH Units (7.32-7.45); ABG PO2 66 mmHg (85-104); ABG TCO2 15 mEq/L (20-26)
[2017-06-10] MEDS: Piperacillin/Tazobactam 3.375 GM in 0.9 % Sodium Chloride Mini Bag 100 ML IVPB SCH (17:57)
[2017-06-10] MEDS: Aspirin 81 MG TAB.CHEW PO SCH (17:57)
[2017-06-11] MEDS: Insulin DETEMIR 100 UNIT/ML X5UNITS SQ SCH ×2 (00:20→21:58)
[2017-06-11] MEDS: Insulin LISPRO 300 UNITS/3 ML VIAL SQ SCH ×3 (00:21→12:08)
[2017-06-11] MEDS: (Aclidinium Bromide [Tudorza Pressair] 1 PUFF) IH SCH ×3 (00:21→22:26)
[2017-06-11] MEDS: Piperacillin/Tazobactam 3.375 GM in 0.9 % Sodium Chloride Mini Bag 100 ML IVPB SCH ×3 (00:21→16:48)
[2017-06-11 03:26] LABS: Hematocrit 32.2 % (37.5-50.1); Hemoglobin 10.7 g/dL (12.9-16.9); Immature Platelets 6.6 % (1.1-6.1); Mean Corpuscular HGB Conc 33.2 g/dL (31.6-35.5); Mean Corpuscular Hemoglobin 29.6 pg (28.0-33.3); Mean Corpuscular Volume 89.2 fL (83.0-100.0); Mean Platelet Volume 11.8 fL (9.4-12.4); Nucleated Red Blood Cells 0.2 /100 WBC (0); Platelet Count 192 K/mcL (140-400); Red Blood Count 3.61 M/mcL (4.19-5.50); Red Cell Distribution Width 14.9 % (11.5-14.5)
[2017-06-11 03:27] LABS: Calcium 7.3 mg/dL (8.6-10.3); Magnesium 2.1 mg/dL (1.6-2.6); Potassium 3.5 mEq/L (3.5-5.1)
[2017-06-11] MEDS: Ipratropium/Albuterol Neb 3 ML IH SCH ×5 (03:45→20:44)
[2017-06-11 04:07] LABS: Lymphocytes # 1.3 K/mcL (0.6-4.6); Monocytes # 1.6 K/mcL (0.0-1.3); Neutrophils # 10.1 K/mcL (1.6-8.9)
[2017-06-11 04:08] LABS: Platelet Estimate Normal (Normal)
[2017-06-11 04:09] LABS: Dohle Bodies Present (Not Present)
[2017-06-11] MEDS: Famotidine 20 MG TABLET PO SCH (08:34)
[2017-06-11] MEDS: Aspirin 81 MG TAB.CHEW PO SCH (08:34)
[2017-06-11 09:47] LABS: ABG Base Excess -11 mEq/L (-2 to 3); ABG HCO3 14 mEq/L (21-27); ABG Oxygen Saturation 95 % (95-98); ABG PCO2 26 mmHg (35-45); ABG PH 7.34 pH Units (7.32-7.45); ABG PO2 78 mmHg (85-104); ABG TCO2 14 mEq/L (20-26)
[2017-06-11] MEDS ORDERED: *HR* Heparin 5,000 UNIT/ML VIAL IVP ONE (11:43)
[2017-06-11] MEDS ORDERED: *HR* Heparin 5,000 UNIT/ML VIAL IVP PRN ×2 (11:43)
[2017-06-11] MEDS ORDERED: Heparin 25,000 UNIT/500 ML D5W 25,000 UNIT/500 ML BAG IVC SCH (11:45)
[2017-06-11 12:29] LABS: Hematocrit 32.9 % (37.5-50.1); Hemoglobin 11.2 g/dL (12.9-16.9); Mean Corpuscular Hemoglobin 30.4 pg (28.0-33.3); Mean Corpuscular Volume 89.4 fL (83.0-100.0); Mean Platelet Volume 11.9 fL (9.4-12.4); Platelet Count 196 K/mcL (140-400); Red Blood Count 3.68 M/mcL (4.19-5.50); Red Cell Distribution Width 15.1 % (11.5-14.5)
[2017-06-11 12:35] LABS: Prothrombin Time 11.1 Seconds (9.4-12.1)
[2017-06-11 12:38] LABS: Activated Partial Thrombo Time 22.7 Seconds (26.0-36.0)
--- NOTE | 2017-06-11 14:12 | Cardiology Consult Note ---
<Rodriguez Villa - Last Filed: 06/11/17 16:01> Date of Encounter: 06/11/17 Time of Encounter: 14:06 Assessment and Plan (1) Elevated troponin Current Visit: Yes Status: Acute Challenging to interpret in setting of HARRY with potentially infectious etiology as well as positive stool guiac. EKG does not show ischemic changes. Echo shows EF is normal at 60-65% and shows mild basilar inferior wall hypokinesis, indeterminate diastolic function, basal septal hypertrophy, no LVOT , mild MR, TR, and mild pulmonary hypertension. Plan: - Given normal EF and echo findings, nothing indicating need for urgent catheterization at this time - Recommend GI consultation - Consider ischemic evaluation prior to discharge once patient improves (2) HARRY (acute kidney injury) Current Visit: Yes Status: Acute Continues to improve per primary team Discussion w patient/family: The assessment and plan as outlined above was discussed with the patient and/or family members who expressed understanding and agreement. All questions were answered. Thank you for involving us in the care of your patient. Please call with any questions. History of Present Illness Consult date: 06/11/17 Requesting physician: Julio Lopez Consult reason: elevated troponin Chief complaint: N/V and abdominal pain History of present illness: Mr. Toscano is a 71 year old male with a past medical history of HTN, COPD, IDDM , HLD, CHT, 1 pack per day smoking quitting 3 years ago presents to the hospital initially with the complaint of nausea, vomiting, and abdominal bloating. Patient was initially being worked up for intestinal ischemia in which he became hypotensive in the emergency department and received IV fluid boluses. His blood pressure was responsive. He is found to have an elevated lactate as well as a CT of the abdomen and pelvis that showed ileus versus partial small bowel obstruction. Surgery was consulted and no intervention was recommended at this time. The patient was admitted and is currently being treated for colitis secondary to Escherichia coli infection. While in the emergency department the patient was alsotachypnea as well as hypoxia. The patient had a negative lower extremity Doppler as well as a negative VQ scan. His troponin however, has been increasing since admission from 0.062 0.79. EKG does not show ischemic changes. Patient also had a run of nonsustained ventricular tachycardia yesterday for 8 bpm. The patient is denying ANALY, chest pain, palpitations or lower extremity swelling. The patient is requiring 5L on non-rebreather mask to maintain oxygen saturation > 90%. Past Med Surg Social Fam HX - Past Medical History Medical history: COPD, coronary artery disease, diabetes, GERD, hyperlipidemia, hypertension, renal disease, other Psychiatric history: no psych history - Past Surgical History Surgical History: angioplasty/stent, cholecystectomy, other (hernia repair) - Social History Smoking Status: Former smoker Smokeless Tobacco Status: No Alcohol use: none Drug use: none - Family History Mother History Unknown: Yes Hx Family Cardiac Disorders: Yes (denies [facility] clotting bleeding disorders) Medications and Allergies Albuterol Sulfate [Ventolin Hfa] 2 puff IH Q4H PRN 06/07/16 [History] Aspirin 81 mg PO DAILY 06/07/16 [History] Citalopram [CeleXA] 20 mg PO DAILY 06/07/16 [History] CloNIDine HCl [Kapvay] 0.1 mg PO HS 06/07/16 [History] Clopidogrel [Plavix] 75 mg PO DAILY 06/07/16 [History] Famotidine [Pepcid] 40 mg PO DAILY 06/07/16 [History] Insulin ASPART [Novolog Flexpen] 0 unit SQ TIDWM 06/07/16 [History] Insulin Glargine,Hum.rec.anlog [Lantus Solostar] 50 unit SQ HS 06/07/16 [History ] Lovastatin 40 mg PO DAILY 06/07/16 [History] Metformin HCl [Glucophage] 1,000 mg PO BID 06/07/16 [History] Aclidinium [employer] [Tudorza Pressair] 1 puff IH BID 10/19/16 [History] Amlodipine Besylate 10 mg PO DAILY 10/19/16 [History] Levothyroxine Sodium [Levoxyl] 88 mcg PO 0630 10/19/16 [History] Lisinopril/Hydrochlorothiazide [Zestoretic 20-25 mg Tablet] 1 tab PO DAILY 10/19 [History] Metoprolol [Lopressor] 25 mg PO BID 10/19/16 [History] Insulin Glargine,Hum.rec.anlog [Toujeo Solostar] 35 unit SQ DAILY 06/09/17 [ History] 3 Allergy/AdvReac Type Severity Reaction Status Date / Time No Known Allergies Allergy Verified 10/19/16 09:54 All Systems Review: The remainder of the systems were reviewed and are negative - Cardiovascular Cardiovascular: no dyspnea at rest, no dyspnea on exertion, no irregular heart rhythm, no radiating jaw, neck or arm pain, no leg edema, no orthopnea, no palpitations - Respiratory Respiratory: no cough, no dyspnea, no wheezing - Gastrointestinal Gastrointestinal: abdominal pain, nausea, no coffee ground emesis, no constipation, no diarrhea, no hematemesis, no hematochezia, no melena Physical Examination Vital Signs, Last 4 Hours Temp Pulse Resp BP Pulse Ox 06/11/17 11:26 22 90 06/11/17 11:00 98.3 F 98 22 117/75 General: Conversant, No Apparent Distress HEENT: Atraumatic, Normocephaly, Mucus Membranes Moist Neck: No JVD, Normal carotid pulses Cardiac: No Murmur, Other (tachycardia) Lungs: Normal Breath Sounds, No Wheeze, Rales, Rhonchi Neuro: Alert and responsive, No focal deficits noted Abdomen: Soft, Non-Tender Skin: No rashes noted on visualized skin Musculoskeletal: No Chest Wall Tenderness Extremities: No Clubbing, No Cyanosis, No Edema, Normal Pulses Results 06/11/17 12:02 06/11/17 02:45 Lab Results 06/10/17 06/11/17 06/11/17 19:45 02:45 02:45 WBC 13.0 H Hgb 10.7 L Hct 32.2 L Plt Count 192 INR APTT Sodium 140 Potassium 3.5 Chloride 116 H Carbon Dioxide 16 L BUN 48 H Creatinine 1.44 H Glucose 239 H Calcium 7.3 L Magnesium 2.1 Troponin I 0.14 H* 06/11/17 06/11/17 06/11/17 02:45 09:06 12:02 WBC 15.3 H Hgb 11.2 L Hct 32.9 L Plt Count 196 INR APTT Sodium Potassium Chloride Carbon Dioxide BUN Creatinine Glucose Calcium Magnesium Troponin I 0.57 H* 0.79 H* 06/11/17 12:02 WBC Hgb Hct Plt Count INR 1.0 APTT 22.7 L Sodium Potassium Chloride Carbon Dioxide BUN Creatinine Glucose Calcium Magnesium Troponin I - Imaging and Cardiology Echo: report reviewed - EKG Interpretation EKG results cardiology: personally reviewed, normal ECG, sinus rhythm, no diagnostic ischemia, right bundle branch block Consult Discharge Plan - Plan Referrals: Suzan Kenny, FREIGHT TRAFFIC CONSULTANT [Primary Care Provider] - 06/14/17 11:00 am <Ana Paula Bull - Last Filed: 06/11/17 17:54> Date of Encounter: 06/11/17 - Attending Attestation I examined this patient and my medical decision-making was reviewed with the Resident Physician. I agree with the documented findings, disposition and treatment plan. Ms. Toscano presents with nausea, vomiting and abdominal discomfort complicated by elevated troponin. Troponin challenging to interpret in setting of ARF. Etiology possibly demand ischemia in setting of presumed infection. ECG without acute ischemic findings. Agree with echo. Recommend conservative management at this time. Stool guiac is positive - recommend GI consult. Further recommendations pending. Assessment and Plan Discussion w patient/family: The assessment and plan as outlined above was discussed with the patient and/or family members who expressed understanding and agreement. All questions were answered. Thank you for involving us in the care of your patient. Please call with any questions. History of Present Illness History of present illness: Mr. Toscano is a 71 year old male All Systems Review: The remainder of the systems were reviewed and are negative Physical Examination Vital Signs, Last 4 Hours Temp Pulse Resp BP Pulse Ox 06/11/17 15:59 99.3 F 112 39 146/100 94 06/11/17 15:26 33 93 06/11/17 14:44 35 90 Results 06/11/17 12:02 06/11/17 02:45 Lab Results 06/10/17 06/11/17 06/11/17 19:45 02:45 02:45 WBC 13.0 H Hgb 10.7 L Hct 32.2 L Plt Count 192 INR APTT Sodium 140 Potassium 3.5 Chloride 116 H Carbon Dioxide 16 L BUN 48 H Creatinine 1.44 H Glucose 239 H Calcium 7.3 L Magnesium 2.1 Troponin I 0.14 H* 06/11/17 06/11/17 06/11/17 02:45 09:06 12:02 WBC 15.3 H Hgb 11.2 L Hct 32.9 L Plt Count 196 INR APTT Sodium Potassium Chloride Carbon Dioxide BUN Creatinine Glucose Calcium Magnesium Troponin I 0.57 H* 0.79 H* 06/11/17 12:02 WBC Hgb Hct Plt Count INR 1.0 APTT 22.7 L Sodium Potassium Chloride Carbon Dioxide BUN Creatinine Glucose Calcium Magnesium Troponin I
[2017-06-11] MEDS ORDERED: methylPREDNISolone 125 MG/2 ML VIAL IVP ONE (14:31)
--- NOTE | 2017-06-11 15:05 | Internal Med Progress Note ---
Date of Encounter: 06/11/17 Time of Encounter: 15:03 - Assessment and plan (1) Acute respiratory failure with hypoxemia Current Visit: Yes Status: Acute Assessment and plan: Patient developed worsening of acute respiratory failure with hypoxia. I believe this is due to COPD exacerbation. Will start patient on treatment for COPD exacerbation with steroids, bronchodilators. Use BiPAP as needed. High risk for complications. (2) Elevated troponin Current Visit: Yes Status: Acute Assessment and plan: Troponins continue to rise. Could be related to demand ischemia but non-ST elevation [place] is also a possibility. Will start patient on IV heparin and consult cardiology. He did have stool positive for occult blood previously which could be related to his enteropathogenic Escherichia coli infection. Will monitor blood counts closely. Monitor for episodes of GI bleeding. Follow cardiology recommendations. We will get 2-D echocardiogram. (3) Enteropathogenic Escherichia coli infection Current Visit: Yes Status: Acute Assessment and plan: Patient has been placed on Zosyn. Tolerating oral diet. We will transition to oral antibiotics. (4) Lactic acidosis Current Visit: Yes Status: Resolved (5) HARRY (acute kidney injury) Current Visit: Yes Status: Acute Assessment and plan: Improving. Creatinine is 1.44 today. (6) Abdominal pain Current Visit: Yes Status: Resolved (7) Hypotension Current Visit: Yes Status: Resolved Assessment and plan: Patient no longer having hypotension. Blood pressure is much improved Qualifiers: Hypotension type: unspecified hypotension type Qualified Code(s): I95.9 - Hypotension, unspecified (8) DVT prophylaxis Current Visit: Yes Status: Acute Assessment and plan: Patient started on IV heparin. (9) Elevated d-dimer Current Visit: Yes Status: Acute Assessment and plan: Normal VQ scan study. No signs of PE. (10) Abnormal liver enzymes Current Visit: Yes Status: Acute Assessment and plan: Trended down. (11) Nonsustained ventricular tachycardia Current Visit: Yes Status: Acute Assessment and plan: Continue beta elise. Will replete potassium. Magnesium levels are normal. - Time Spent With Patient Total time spent is greater than 50% in coordination of care (as documented) at patient's floor/unit and/or counseling patient: - Subjective Interval history: Patient seen earlier today and was receiving nebulizer treatments. He reports that he is feeling better overall. Denies any chest pain. Does continue to have some shortness of breath. No nausea or vomiting. No fever or chills reported overnight. Later in the day, he became more dyspneic with increased wheezing. He received another round of nebulizers and was placed on BiPAP with some improvement in his respiratory status. - Constitutional Vitals: Temp Pulse Resp BP Pulse Ox 98.3 F 98 22 117/75 90 06/11/17 11:00 06/11/17 11:00 06/11/17 11:26 06/11/17 11:00 06/11/17 11:26 General appearance: Present: cooperative, mild distress, A&O X 3, answers questions appropriately - Eye Eye exam: Present: EOMI, conjuntiva pink, sclera anicteric - Neck Neck exam general surgery: Present: supple, trachea midline. Absent: lymphadenopathy - Respiratory Respiratory exam: Present: decreased breath sounds (Diminished breath sounds bilaterally), prolonged expiratory phase, wheezes. Absent: accessory muscle use , rales, rhonchi - Cardiovascular Cardiovascular exam: Present: RRR, +S1, +S2. Absent: diastolic murmur, gallop, rubs, systolic murmur - GI/Abdominal GI/Abdominal exam: Present: normal bowel sounds, soft, no peritoneal signs. Absent: distended, tenderness - Extremities Exam Extremities exam: Present: warm, radial pulses palpable and symmetrical. Absent : calf tenderness, cyanotic, pedal edema - Neurological Exam Neurological exam: Present: CN II-XII intact, oriented X3, no focal deficits. Absent: facial droop, speech deficit - Skin Skin exam: Present: dry, intact Internal Medicine: Result - Labs CBC & Chem 7: 06/11/17 12:02 06/11/17 02:45 Labs: Short CBC 06/11/17 06/11/17 Range/Units 02:45 12:02 WBC 13.0 H 15.3 H (4.3-11.1) K/mcL Hgb 10.7 L 11.2 L (12.9-16.9) g/dL Hct 32.2 L 32.9 L (37.5-50.1) % Plt Count 192 196 (140-400) K/mcL Neutrophils # 10.1 H (1.6-8.9) K/mcL BMP 06/11/17 02:45 Sodium 140 Potassium 3.5 Chloride 116 H Carbon Dioxide 16 L BUN 48 H Creatinine 1.44 H Glucose 239 H Calcium 7.3 L Cardiac Enzymes 06/10/17 06/11/17 06/11/17 Range/Units 19:45 02:45 09:06 Troponin I 0.14 H* 0.57 H* 0.79 H* (< 0.04) ng/mL - ABG Interpretation ABG results: ABG ABG pH 7.34 pH Units (7.32-7.45) 06/11/17 09:40 ABG pCO2 26 mmHg (35-45) L 06/11/17 09:40 ABG pO2 78 mmHg (85-104) L 06/11/17 09:40 ABG O2 Saturation 95 % (95-98) 06/11/17 09:40 PT/INR, D-dimer PT 11.1 Seconds (9.4-12.1) 06/11/17 12:02 D-Dimer 5051 ng/mLFEU (0-500) H 06/09/17 18:34 - VTE Documentation of Mechanical Device: Intermittent pneumatic compression device Consult Discharge Plan - Plan Referrals: Suzan Kenny, LAUREN [Primary Care Provider] - 06/14/17 11:00 am
[2017-06-11] MEDS ORDERED: Furosemide 40 MG/4 ML VIAL IVP ONE (15:48)
[2017-06-11] MEDS ORDERED: Insulin LISPRO 300 UNITS/3 ML VIAL SQ SCH ×2 (16:30→21:15)
[2017-06-11] MEDS: Levofloxacin 750 MG/150 ML 750 MG/150 ML BAG IVPB SCH (16:49)
[2017-06-11] MEDS ORDERED: *HR* Heparin 5,000 UNIT/ML VIAL SQ SCH (18:00)
[2017-06-11] MEDS: methylPREDNISolone 125 MG/2 ML VIAL IVP SCH (21:59)
--- NOTE | 2017-06-11 23:25 | Nephrology Progress Note ---
Date of Encounter: 06/11/17 Time of Encounter: 12:00 - Assessment and Plan (1) HARRY (acute kidney injury) Current Visit: Yes Status: Acute SCr improving at 1.44, GFR 48 which almost at baseline UOP great at 1950 Can switch to po fluids at this point Continue to avoid nephrotoxins if possible (2) Lactic acidosis Current Visit: Yes Status: Resolved Resolved (3) Metabolic acidosis Current Visit: Yes Status: Acute Improving with bicarb at 16, will monitor Subjective Interval history: pt seen and examined sitting up in bed tolerating liquid diet and feels much better overall. Objective - Vital Signs Vital signs: Vital Signs Temp Pulse Resp BP Pulse Ox 06/11/17 22:17 20 95 06/11/17 20:47 24 91 06/11/17 19:19 97.7 F 113 29 144/86 89 06/11/17 15:59 99.3 F 112 39 146/100 94 06/11/17 15:26 33 93 06/11/17 14:44 35 90 06/11/17 11:26 22 90 06/11/17 11:00 98.3 F 98 22 117/75 06/11/17 08:00 105 06/11/17 07:55 18 92 06/11/17 07:18 97.8 F 105 20 139/78 91 06/11/17 04:00 98.4 F 106 22 117/73 92 06/11/17 03:45 26 91 06/11/17 00:07 97.9 F 108 24 117/70 91 06/10/17 23:36 18 91 Intake and Output 06/11/17 06/11/17 06/11/17 07:59 15:59 23:59 Intake Total 500 / 500 1480 / 1480 448 / 448 Output Total 300 / 300 850 / 850 600 / 600 Balance 200 / 200 630 / 630 -152 / -152 Intake: IV Fluids 200 / 200 248 / 248 Heparin 25,000 UNIT/500 ML D5W 148 / 148 25,000 unit In 500 ml @ 12 UNIT /KG/HR 18.096 mls/hr IVC .Q24H [facility] Rx#:[id number] Zosyn 3.375 GM In 0.9 % Sodium 200 / 200 100 / 100 Chloride (Mini-Bag +) 100 ML @ 25 mls/hr IVPB Q8HR [facility] Rx#: [id number] Oral 500 / 500 1280 / 1280 200 / 200 Output: Urine 300 / 300 850 / 850 600 / 600 Other: Meal Lunch Dinner Percent of Meal Consumed 15% Blood Glucose* [phone] - General Appearance General appearance: Present: well-developed, well-nourished EENT: Present: ATNC, mucous membranes moist Neck: Present: no JVD, supple Respiratory: Present: clear Cardiology: Present: no edema, normal S1, normal S2 Gastrointestinal: Present: no tenderness, no guarding Integumentary: Present: warm and dry Neurologic: Present: no focal deficit Musculoskeletal: Present: no deformities Psychiatric: Present: mood/affect appropriate, cooperative - Lab 06/11/17 12:02 06/11/17 02:45 Most recent lab results ABG pH 7.34 pH Units (7.32-7.45) 06/11/17 09:40 ABG pCO2 26 mmHg (35-45) L 06/11/17 09:40 ABG pO2 78 mmHg (85-104) L 06/11/17 09:40 ABG HCO3 14 mEq/L (21-27) L 06/11/17 09:40 ABG O2 Saturation 95 % (95-98) 06/11/17 09:40 Calcium 7.3 mg/dL (8.6-10.3) L 06/11/17 02:45 Magnesium 2.1 mg/dL (1.6-2.6) 06/11/17 02:45 Urine Creatinine 165 mg/dL 06/09/17 15:14 Urine Sodium 18.7 mEq/L 06/09/17 15:14 - VTE Documentation of Mechanical Device: Intermittent pneumatic compression device Consult Discharge Plan - Plan Referrals: Suzan Kenny DISPUTE SPECIALIST [Primary Care Provider] - 06/14/17 11:00 am
[2017-06-12] MEDS: Ipratropium/Albuterol Neb 3 ML IH SCH ×7 (00:17→23:48)
[2017-06-12] MEDS: Piperacillin/Tazobactam 3.375 GM in 0.9 % Sodium Chloride Mini Bag 100 ML IVPB SCH ×2 (00:55→07:53)
[2017-06-12 05:29] LABS: Hematocrit 34.8 % (37.5-50.1); Hemoglobin 11.7 g/dL (12.9-16.9); Mean Corpuscular HGB Conc 33.6 g/dL (31.6-35.5); Mean Corpuscular Hemoglobin 29.7 pg (28.0-33.3); Mean Corpuscular Volume 88.3 fL (83.0-100.0); Platelet Count 202 K/mcL (140-400); Red Blood Count 3.94 M/mcL (4.19-5.50); Red Cell Distribution Width 14.9 % (11.5-14.5)
[2017-06-12 05:52] LABS: Lymphocytes # 1.5 K/mcL (0.6-4.6); Monocytes # 0.9 K/mcL (0.0-1.3); Neutrophils # 8.3 K/mcL (1.6-8.9); Platelet Estimate Normal (Normal)
[2017-06-12] MEDS: methylPREDNISolone 125 MG/2 ML VIAL IVP SCH ×3 (05:53→21:41)
[2017-06-12 05:54] LABS: BUN/Creatinine Ratio 23 (6-26); Blood Urea Nitrogen 26 mg/dL (8-23); Calcium 8.1 mg/dL (8.6-10.3); Carbon Dioxide 18 mEq/L (23-29); Chloride 111 mEq/L (98-107); Glucose 322 mg/dL (70-105); Osmolality,Calculated 311 (280-300); Potassium 3.7 mEq/L (3.5-5.1); Sodium 142 mEq/L (136-145); eGFR For African Americans > 60 (> 60); eGFR For Non-African Americans > 60 (> 60)
[2017-06-12] MEDS ORDERED: Insulin LISPRO 300 UNITS/3 ML VIAL SQ SCH ×2 (07:30→11:12)
[2017-06-12] MEDS: Famotidine 20 MG TABLET PO SCH (07:52)
[2017-06-12] MEDS: Levofloxacin 750 MG/150 ML 750 MG/150 ML BAG IVPB SCH (07:52)
[2017-06-12] MEDS: Furosemide 20 MG/2 ML VIAL IVP SCH ×2 (07:52→17:26)
[2017-06-12] MEDS: Aspirin 81 MG TAB.CHEW PO SCH (07:52)
[2017-06-12] MEDS: (Aclidinium Bromide [Tudorza Pressair] 1 PUFF) IH SCH ×2 (07:53→20:54)
--- NOTE | 2017-06-12 09:07 | Electrocardiograph Report ---
[place] [address] Test Date: 2017-06-11 Pat Name: Siena Toscano Department: 110 Room: 2N07 Gender: M Manufacturing Cost Estimator: : 1945 Requested By: Julio Lopez Order Number: [id number] Reading MD: Ana Paula Bull Measurements Intervals [place] Rate: 96 P: 39 IA: 127 QRS: -7 QRSD: 145 T: -31 QT: 408 QTc: 462 Interpretive Statements SINUS RHYTHM RIGHT BUNDLE BRANCH BLOCK LOW VOLTAGE LIMB LEADS Electronically Signed On 06-12-2017 9:05:40 EDT by Ana Paula Bull
[2017-06-12 10:18] LABS: Adenovirus Not Detected (Not Detect); Bordetella Pertussis Not Detected (Not Detect); Chlamydophila pneumoniae Not Detected (Not Detect); Coronavirus 229E Not Detected (Not Detect); Coronavirus HKU1 Not Detected (Not Detect); Coronavirus NL63 Not Detected (Not Detect); Coronavirus OC43 Not Detected (Not Detect); Human Metapneumovirus Not Detected (Not Detect); Human Rhinovirus/Enterovirus Not Detected (Not Detect); Influenza A Subtype 2009 H1 Not Detected (Not Detect); Influenza A Untypeable Not Detected (Not Detect); Influenza B Not Detected (Not Detect); Mycoplasma pneumoniae Not Detected (Not Detect); Parainfluenza Virus 1 Not Detected (Not Detect); Parainfluenza Virus 2 Not Detected (Not Detect); Parainfluenza Virus 3 Not Detected (Not Detect); Parainfluenza Virus 4 Not Detected (Not Detect); Respiratory Syncytial Virus Not Detected (Not Detect)
[2017-06-12] MEDS: Insulin LISPRO 300 UNITS/3 ML VIAL SQ SCH ×2 (12:26→17:25)
--- NOTE | 2017-06-12 15:23 | Cardiology Progress Note ---
<Rodriguez Villa - Last Filed: 06/12/17 16:44> Date of Encounter: 06/12/17 Time of Encounter: 15:14 Assessment and Plan (1) Elevated troponin Current Visit: Yes Status: Acute Challenging to interpret in setting of HARRY with potentially infectious etiology as well as positive stool guiac. EKG does not show ischemic changes. Echo shows EF is normal at 60-65% and shows mild basilar inferior wall hypokinesis, indeterminate diastolic function, basal septal hypertrophy, no LVOT , mild MR, TR, and mild pulmonary hypertension. Plan: - Given normal EF and echo findings, nothing indicating need for urgent catheterization at this time - Recommend GI consultation - Consider ischemic evaluation prior to discharge once patient improves. Cardiology will sign off at this time. - (2) HARRY (acute kidney injury) Current Visit: Yes Status: Acute Resolved per primary team. Discussion w patient/family: The assessment and plan as outlined above was discussed with the patient and/or family members who expressed understanding and agreement. All questions were answered. Thank you for involving us in the care of your patient. Please call with any questions. Subjective Interval history: Mr. Toscano is a 71 year old male with a past medical history of HTN, COPD, IDDM , HLD, CHT, 1 pack per day smoking quitting 3 years ago presents to the hospital initially with the complaint of nausea, vomiting, and abdominal bloating. Patient was initially being worked up for intestinal ischemia in which he became hypotensive in the emergency department and received IV fluid boluses. His blood pressure was responsive. He is found to have an elevated lactate as well as a CT of the abdomen and pelvis that showed ileus versus partial small bowel obstruction. Surgery was consulted and no intervention was recommended at this time. The patient was admitted and is currently being treated for colitis secondary to Escherichia coli infection. While in the emergency department the patient was alsotachypnea as well as hypoxia. The patient had a negative lower extremity Doppler as well as a negative VQ scan.EKG does not show ischemic changes. Patient also had a run of nonsustained ventricular tachycardia two days ago for 8 bpm. The patient is denying ANALY, chest pain, palpitations or lower extremity swelling. Patient states he is feeling much better and ready to go, however he continues to have increased oxygen demand. Objective Vital Signs, Last 4 Hours Temp Pulse Resp BP Pulse Ox 06/12/17 11:40 18 94 04/17/18 11:26 92 06/12/17 11:24 97.8 F 102 20 144/90 95 General: Conversant, No Apparent Distress HEENT: Atraumatic, Normocephaly, Mucus Membranes Moist Neck: No JVD, Normal carotid pulses Cardiac: Reg Rate and Rhythm, Normal S1 and S2, No Murmur Lungs: Other (mild-mod expiratory wheezes) Neuro: Alert and responsive, No focal deficits noted Abdomen: Soft, Non-Tender Skin: No rashes noted on visualized skin Musculoskeletal: No Chest Wall Tenderness Extremities: No Clubbing, No Cyanosis, No Edema, Normal Pulses Results 06/12/17 05:06 06/12/17 05:06 Lab Results 06/11/17 06/12/17 06/12/17 19:47 05:06 05:06 WBC 10.6 Hgb 11.7 L Hct 34.8 L Plt Count 202 APTT 31.1 Sodium 142 Potassium 3.7 Chloride 111 H Carbon Dioxide 18 L BUN 26 H Creatinine 1.14 Glucose 322 H Calcium 8.1 L Troponin I 06/12/17 06/12/17 06/12/17 05:06 12:13 12:13 WBC Hgb Hct Plt Count APTT 50.7 H D 57.2 H Sodium Potassium Chloride Carbon Dioxide BUN Creatinine Glucose Calcium Troponin I 0.75 H* - Imaging and Cardiology Chest Xray: report reviewed, image reviewed - VTE Documentation of Mechanical Device: Intermittent pneumatic compression device Consult Discharge Plan - Plan Referrals: Suzan Kenny CNP [Primary Care Provider] - 06/14/17 11:00 am <Ana Paula Bull - Last Filed: 06/12/17 17:58> Date of Encounter: 06/12/17 Assessment and Plan Discussion w patient/family: I examined this patient and my medical decision-making was reviewed with the Resident Physician. I agree with the documented findings, disposition and treatment plan. Mr. Toscano has no new complaints today. He says he is feeling well. Echo reviewed - preserved LVEF with possible basal inferior wall hypokinesis. Patient with positive stool occult blood awaiting GI workup. Blood count stable on aspirin. Objective Vital Signs, Last 4 Hours Temp Pulse Resp BP Pulse Ox 06/12/17 15:53 98.2 F 112 20 144/86 96 06/12/17 15:12 16 90 Results 06/12/17 05:06 06/12/17 05:06 Lab Results 06/11/17 06/12/17 06/12/17 19:47 05:06 05:06 WBC 10.6 Hgb 11.7 L Hct 34.8 L Plt Count 202 APTT 31.1 Sodium 142 Potassium 3.7 Chloride 111 H Carbon Dioxide 18 L BUN 26 H Creatinine 1.14 Glucose 322 H Calcium 8.1 L Troponin I 06/12/17 06/12/17 06/12/17 05:06 12:13 12:13 WBC Hgb Hct Plt Count APTT 50.7 H D 57.2 H Sodium Potassium Chloride Carbon Dioxide BUN Creatinine Glucose Calcium Troponin I 0.75 H*
--- NOTE | 2017-06-12 16:11 | Internal Med Progress Note ---
Date of Encounter: 06/12/17 Time of Encounter: 16:08 - Assessment and plan (1) Acute respiratory failure with hypoxemia Current Visit: Yes Status: Acute Assessment and plan: Continue O2 supplementation. Wean FiO2 as tolerated. Treat underlying pulmonary edema and COPD exacerbation. (2) Elevated troponin Current Visit: Yes Status: Acute Assessment and plan: Cardiology following. Stop heparin per the recommendations. Do not recommend urgent left heart catheterization at this time. 2-D echocardiogram reviewed. Patient has EF of 60-65% with mild basal inferior wall hypokinesis. Indeterminate diastolic function. (3) Enteropathogenic Escherichia coli infection Current Visit: Yes Status: Acute Assessment and plan: Stop IV Zosyn. Will place patient on Cipro. (4) Lactic acidosis Current Visit: Yes Status: Resolved (5) HARRY (acute kidney injury) Current Visit: Yes Status: Acute Assessment and plan: Improving. Creatinine 1.14 today. (6) Abdominal pain Current Visit: Yes Status: Resolved (7) Hypotension Current Visit: Yes Status: Resolved Qualifiers: Hypotension type: unspecified hypotension type Qualified Code(s): I95.9 - Hypotension, unspecified (8) DVT prophylaxis Current Visit: Yes Status: Acute Assessment and plan: Will place patient on subcutaneous heparin now that IV heparin has been stopped (9) Elevated d-dimer Current Visit: Yes Status: Acute (10) Abnormal liver enzymes Current Visit: Yes Status: Acute (11) Nonsustained ventricular tachycardia Current Visit: Yes Status: Acute Assessment and plan: Continue metoprolol. (12) Anemia Current Visit: Yes Status: Chronic Assessment and plan: Chronic anemia. Hemoglobin stable at 11.7. Qualifiers: Anemia type: due to chronic kidney disease Chronic kidney disease stage: stage 2 (mild) Qualified Code(s): N18.2 - Chronic kidney disease, stage 2 ( mild); D63.1 - Anemia in chronic kidney disease; D63.1 - Anemia in chronic kidney disease (13) Fecal occult blood test positive Current Visit: Yes Status: Acute Assessment and plan: Patient has stool positive for occult blood. Cardiology requesting GI evaluation in anticipation for left heart catheterization. Discussed with GI. Will keep nothing by mouth and plan for upper GI endoscopy tomorrow. This is also possibly due to Escherichia coli infection and hemorrhoids. Hemoglobin levels have remained stable. (14) Diastolic congestive heart failure Current Visit: Yes Status: Acute Assessment and plan: Likely due to fluid overload while treating acute kidney injury. Started on Lasix with good improvement. Will continue at current dose. Qualifiers: Heart failure chronicity: acute on chronic Qualified Code(s): I50.33 - Acute on chronic diastolic (congestive) heart failure (15) COPD exacerbation Current Visit: Yes Status: Acute Assessment and plan: Treating with IV steroids, bronchodilators and O2 supplementation. We will transition to oral steroids. - Time Spent With Patient Total time spent is greater than 50% in coordination of care (as documented) at patient's floor/unit and/or counseling patient: - Subjective Interval history: Patient feeling much better today. Does continue to require increased O2 supplementation. However does not appear to be in respiratory distress today. Denies any chest pain. No nausea or vomiting. No fever or chills overnight. - Constitutional Vitals: Temp Pulse Resp BP Pulse Ox 98.2 F 112 20 144/86 96 06/12/17 15:53 06/12/17 15:53 06/12/17 15:53 06/12/17 15:53 06/12/17 15:53 General appearance: Present: cooperative, mild distress, A&O X 3, answers questions appropriately - Respiratory Respiratory exam: Present: prolonged expiratory phase, wheezes. Absent: accessory muscle use, rales, rhonchi - Cardiovascular Cardiovascular exam: Present: RRR, +S1, +S2. Absent: diastolic murmur, gallop, rubs, systolic murmur - GI/Abdominal GI/Abdominal exam: Present: normal bowel sounds, soft, no peritoneal signs. Absent: distended, tenderness - Extremities Exam Extremities exam: Present: warm, radial pulses palpable and symmetrical. Absent : calf tenderness, cyanotic, pedal edema - Neurological Exam Neurological exam: Present: alert, oriented X3, no focal deficits. Absent: facial droop, speech deficit Internal Medicine: Result - Labs CBC & Chem 7: 06/12/17 05:06 06/12/17 05:06 Labs: Short CBC 06/12/17 Range/Units 05:06 WBC 10.6 (4.3-11.1) K/mcL Hgb 11.7 L (12.9-16.9) g/dL Hct 34.8 L (37.5-50.1) % Plt Count 202 (140-400) K/mcL Neutrophils # 8.3 (1.6-8.9) K/mcL BMP 06/12/17 05:06 Sodium 142 Potassium 3.7 Chloride 111 H Carbon Dioxide 18 L BUN 26 H Creatinine 1.14 Glucose 322 H Calcium 8.1 L Cardiac Enzymes 06/12/17 Range/Units 12:13 Troponin I 0.75 H* (< 0.04) ng/mL - ABG Interpretation ABG results: ABG ABG pH 7.34 pH Units (7.32-7.45) 06/11/17 09:40 ABG pCO2 26 mmHg (35-45) L 06/11/17 09:40 ABG pO2 78 mmHg (85-104) L 06/11/17 09:40 ABG O2 Saturation 95 % (95-98) 06/11/17 09:40 PT/INR, D-dimer PT 11.1 Seconds (9.4-12.1) 06/11/17 12:02 D-Dimer 5051 ng/mLFEU (0-500) H 06/09/17 18:34 - Impressions Impressions Chest X-Ray 06/12/17 11:05 IMPRESSION: CHF with improving pulmonary edema. D/ / Adam Angel MD / Adam Angel MD Interpreting Provider: Adam Angel MD - VTE Documentation of Mechanical Device: Intermittent pneumatic compression device Consult Discharge Plan - Plan Referrals: Suzan Kenny CNP [Primary Care Provider] - 06/14/17 11:00 am
[2017-06-12] MEDS: *HR* Heparin 5,000 UNIT/ML VIAL SQ SCH (17:26)
[2017-06-12] MEDS: Insulin DETEMIR 100 UNIT/ML X5UNITS SQ SCH (20:53)
--- NOTE | 2017-06-12 23:04 | Nephrology Progress Note ---
Date of Encounter: 06/12/17 Time of Encounter: 12:00 - Assessment and Plan (1) HARRY (acute kidney injury) Current Visit: Yes Status: Acute SCr normalized at 1.14, GFR >60 UOP great at 3250cc in the past 24hrs Can switch to po fluids at this point Continue to avoid nephrotoxins if possible, ok to resume diuretics cautiously Will sign off, please reconsult prn (2) Lactic acidosis Current Visit: Yes Status: Resolved Resolved (3) Metabolic acidosis Current Visit: Yes Status: Acute Improving with bicarb at 18,, will monitor Subjective Interval history: pt seen and examined feeling good with no new complaints Objective - Vital Signs Vital signs: Vital Signs Temp Pulse Resp BP Pulse Ox 06/12/17 19:35 18 92 06/12/17 19:31 98.5 F 117 18 141/73 90 06/12/17 15:53 98.2 F 112 20 144/86 96 06/12/17 15:12 16 90 06/12/17 11:40 18 94 06/12/17 11:26 92 06/12/17 11:24 97.8 F 102 20 144/90 95 06/12/17 08:09 97 06/12/17 07:53 20 94 06/12/17 07:18 97 06/12/17 07:14 97.8 F 97 20 166/101 95 06/12/17 04:31 98.1 F 100 23 141/89 91 06/12/17 03:41 19 94 06/12/17 03:14 86 06/12/17 00:32 93 06/12/17 00:17 20 95 06/11/17 23:28 98.3 F 95 22 137/84 94 Intake and Output 06/12/17 06/12/17 06/12/17 07:59 15:59 23:59 Intake Total 777 / 777 730 / 730 240 / 240 Output Total 700 / 700 650 / 650 955 / 955 Balance 77 / 77 80 / 80 -715 / -715 Intake: IV Fluids 277 / 277 250 / 250 Heparin 25,000 UNIT/500 ML D5W 177 / 177 25,000 unit In 500 ml @ 12 UNIT /KG/HR 18.096 mls/hr IVC .Q24H [facility] Rx#:[id number] Levaquin Premix 750mg/150 mL 150 / 150 750 mg In 150 ml @ 100 mls/hr IVPB DAILY [facility] Rx#:[id number] Zosyn 3.375 GM In 0.9 % Sodium 100 / 100 100 / 100 Chloride (Mini-Bag +) 100 ML @ 25 mls/hr IVPB Q8HR [facility] Rx#: [id number] Oral 500 / 500 0 / 0 240 / 240 Free Water 480 / 480 Output: Urine 700 / 700 650 / 650 955 / 955 Other: Meal Dinner Percent of Meal Consumed 100% Stool Size Large Stool Consistency loose liquid Stool Characteristics Normal for Patient Stool Color Brown Weight 72.6 kg Blood Glucose* 305 337 375 Patient Weight 06/12/17 23:59 Weight 72.6 kg - General Appearance General appearance: Present: well-developed, well-nourished EENT: Present: ATNC, mucous membranes moist Neck: Present: no JVD, supple Respiratory: Present: clear Cardiology: Present: no edema, normal S1, normal S2 Gastrointestinal: Present: no tenderness, no guarding Integumentary: Present: warm and dry Neurologic: Present: no focal deficit Musculoskeletal: Present: no deformities Psychiatric: Present: mood/affect appropriate - Lab 06/12/17 05:06 06/12/17 05:06 Most recent lab results ABG pH 7.34 pH Units (7.32-7.45) 06/11/17 09:40 ABG pCO2 26 mmHg (35-45) L 06/11/17 09:40 ABG pO2 78 mmHg (85-104) L 06/11/17 09:40 ABG HCO3 14 mEq/L (21-27) L 06/11/17 09:40 ABG O2 Saturation 95 % (95-98) 06/11/17 09:40 Calcium 8.1 mg/dL (8.6-10.3) L 06/12/17 05:06 Magnesium 2.1 mg/dL (1.6-2.6) 06/11/17 02:45 Urine Creatinine 165 mg/dL 06/09/17 15:14 Urine Sodium 18.7 mEq/L 06/09/17 15:14 - VTE Documentation of Mechanical Device: Intermittent pneumatic compression device Consult Discharge Plan - Plan Referrals: Suzan Kenny, WORLD LANGUAGE TEACHER [Primary Care Provider] - 06/14/17 11:00 am
[2017-06-13 03:42] LABS: Hematocrit 36.9 % (37.5-50.1); Hemoglobin 12.8 g/dL (12.9-16.9); Mean Corpuscular HGB Conc 34.7 g/dL (31.6-35.5); Mean Corpuscular Volume 86.6 fL (83.0-100.0); Mean Platelet Volume 11.9 fL (9.4-12.4); Nucleated Red Blood Cells 0.5 /100 WBC (0); Platelet Count 227 K/mcL (140-400); Red Blood Count 4.26 M/mcL (4.19-5.50); Red Cell Distribution Width 14.7 % (11.5-14.5)
[2017-06-13] MEDS: Ipratropium/Albuterol Neb 3 ML IH SCH ×4 (04:00→16:21)
[2017-06-13 04:03] LABS: Lymphocytes # 2.4 K/mcL (0.6-4.6); Monocytes # 2.4 K/mcL (0.0-1.3); Neutrophils # 8.4 K/mcL (1.6-8.9); Platelet Estimate Normal (Normal); Toxic Granulation Present (Not Present)
[2017-06-13 04:04] LABS: BUN/Creatinine Ratio 27 (6-26); Blood Urea Nitrogen 32 mg/dL (8-23); Calcium 8.7 mg/dL (8.6-10.3); Carbon Dioxide 19 mEq/L (23-29); Chloride 112 mEq/L (98-107); Glucose 172 mg/dL (70-105); Osmolality,Calculated 307 (280-300); Potassium 3.3 mEq/L (3.5-5.1); Sodium 143 mEq/L (136-145); eGFR For African Americans > 60 (> 60); eGFR For Non-African Americans 60 (> 60)
[2017-06-13] MEDS: *HR* Heparin 5,000 UNIT/ML VIAL SQ SCH ×2 (05:23→16:09)
[2017-06-13] MEDS: methylPREDNISolone 125 MG/2 ML VIAL IVP SCH (05:23)
[2017-06-13] MEDS: Aspirin 81 MG TAB.CHEW PO SCH (08:07)
[2017-06-13] MEDS: Famotidine 20 MG TABLET PO SCH (08:07)
[2017-06-13] MEDS: Furosemide 20 MG TABLET PO SCH ×2 (08:07→16:10)
[2017-06-13] MEDS: (Aclidinium Bromide [Tudorza Pressair] 1 PUFF) IH SCH (08:08)
[2017-06-13] MEDS: Insulin LISPRO 300 UNITS/3 ML VIAL SQ SCH ×3 (10:31→17:09)
--- NOTE | 2017-06-13 15:01 | Internal Med Progress Note ---
Date of Encounter: 06/13/17 Time of Encounter: 09:45 - Assessment and plan (1) Anemia Current Visit: Yes Status: Chronic Assessment and plan: Hemoglobin 12.8 today. GI consulted. We will follow recommendations. Qualifiers: Anemia type: due to chronic kidney disease Chronic kidney disease stage: stage 2 (mild) Qualified Code(s): N18.2 - Chronic kidney disease, stage 2 ( mild); D63.1 - Anemia in chronic kidney disease; D63.1 - Anemia in chronic kidney disease (2) Diastolic congestive heart failure Current Visit: Yes Status: Acute Assessment and plan: Improving. Transition to oral Lasix. Qualifiers: Heart failure chronicity: acute on chronic Qualified Code(s): I50.33 - Acute on chronic diastolic (congestive) heart failure (3) COPD exacerbation Current Visit: Yes Status: Acute Assessment and plan: Improving. Transition to oral steroids. (4) Acute respiratory failure with hypoxemia Current Visit: Yes Status: Resolved Assessment and plan: Much improved. Currently patient is on room air. (5) Elevated troponin Current Visit: Yes Status: Acute Assessment and plan: Cardiology following. At this point no current plans for left heart catheterization. Pending GI workup. (6) Enteropathogenic Escherichia coli infection Current Visit: Yes Status: Acute Assessment and plan: Continue ciprofloxacin. (7) Lactic acidosis Current Visit: Yes Status: Resolved (8) HARRY (acute kidney injury) Current Visit: Yes Status: Resolved Assessment and plan: Resolved (9) Abdominal pain Current Visit: Yes Status: Resolved Assessment and plan: Due to Escherichia coli infection. Resolved (10) Hypotension Current Visit: Yes Status: Resolved Qualifiers: Hypotension type: unspecified hypotension type Qualified Code(s): I95.9 - Hypotension, unspecified (11) DVT prophylaxis Current Visit: Yes Status: Acute Assessment and plan: On subcutaneous heparin (12) Elevated d-dimer Current Visit: Yes Status: Acute Assessment and plan: negative VQ scan (13) Abnormal liver enzymes Current Visit: Yes Status: Acute (14) Nonsustained ventricular tachycardia Current Visit: Yes Status: Acute Assessment and plan: Patient had 10 beat run of ventricular tachycardia last night. Will increase metoprolol dosage. Replete electrolytes. (15) Fecal occult blood test positive Current Visit: Yes Status: Acute (16) Diabetes Current Visit: No Status: Chronic Assessment and plan: Blood sugars remain elevated. We will increase long-acting insulin coverage. Likely due to use of steroids. As we transition to oral steroids, expected decrease in blood sugars. Adjust insulin regimen accordingly. Qualifiers: Diabetes mellitus type: type 2 Diabetes mellitus buttermaker helper insulin use: with buttermaker helper use Diabetes mellitus complication status: with kidney complications Diabetes mellitus complication detail: with chronic kidney disease Chronic kidney disease stage: stage 2 (mild) Qualified Code(s): E11.22 - Type 2 diabetes mellitus with diabetic chronic kidney disease; N18.2 - Chronic kidney disease, stage 2 (mild); N18.2 - Chronic kidney disease, stage 2 (mild); Z79.4 - residential (current) use of insulin; Z79.4 - residential (current) use of insulin; Z79.4 - residential (current) use of insulin; 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 Currently on room air. Denies any chest pain. Shortness of breath is much improved. No nausea or vomiting. No hematemesis or melena. No fever or chills. - Constitutional Vitals: Temp Pulse Resp BP Pulse Ox 98.0 F 89 17 159/90 95 06/13/17 12:30 06/13/17 12:30 06/13/17 12:30 06/13/17 12:30 06/13/17 12:30 General appearance: Present: cooperative, mild distress, A&O X 3, answers questions appropriately - Respiratory Respiratory exam: Present: CTAB, prolonged expiratory phase. Absent: accessory muscle use, rales, rhonchi, wheezes - Cardiovascular Cardiovascular exam: Present: RRR, +S1, +S2. Absent: diastolic murmur, gallop, rubs, systolic murmur - GI/Abdominal GI/Abdominal exam: Present: normal bowel sounds, soft, no peritoneal signs. Absent: distended, tenderness - Extremities Exam Extremities exam: Present: warm, radial pulses palpable and symmetrical. Absent : calf tenderness, cyanotic, pedal edema - Neurological Exam Neurological exam: Present: CN II-XII intact, oriented X3, no focal deficits. Absent: facial droop, speech deficit - Skin Skin exam: Present: dry, intact Internal Medicine: Result - Labs CBC & Chem 7: 06/13/17 03:20 06/13/17 03:20 Labs: Short CBC 06/13/17 Range/Units 03:20 WBC 13.1 H (4.3-11.1) K/mcL Hgb 12.8 L (12.9-16.9) g/dL Hct 36.9 L (37.5-50.1) % Plt Count 227 (140-400) K/mcL Neutrophils # 8.4 (1.6-8.9) K/mcL BMP 06/13/17 03:20 Sodium 143 Potassium 3.3 L Chloride 112 H Carbon Dioxide 19 L BUN 32 H Creatinine 1.20 Glucose 172 H Calcium 8.7 - ABG Interpretation ABG results: ABG ABG pH 7.34 pH Units (7.32-7.45) 06/11/17 09:40 ABG pCO2 26 mmHg (35-45) L 06/11/17 09:40 ABG pO2 78 mmHg (85-104) L 06/11/17 09:40 ABG O2 Saturation 95 % (95-98) 06/11/17 09:40 PT/INR, D-dimer PT 11.1 Seconds (9.4-12.1) 06/11/17 12:02 D-Dimer 5051 ng/mLFEU (0-500) H 06/09/17 18:34 - Impressions Impressions KUB X-Ray 06/13/17 11:13 IMPRESSION: Nonspecific bowel gas pattern. D/ / Rick Lamb MD / Rick Lamb MD Interpreting Provider: Rick Lamb MD - VTE Documentation of Mechanical Device: Intermittent pneumatic compression device Consult Discharge Plan - Plan Referrals: Adam Wan CNP [Advanced Practice Nurse] - 06/21/17 11:00 am
[2017-06-13 15:56] VITALS: BP 155/90
--- NOTE | 2017-06-13 16:08 | Gastroenterology Consult Note ---
<Deirdre Martinez - Last Filed: 06/13/17 16:11> Date of Encounter: 06/13/17 Time of Encounter: 11:00 - Assessment and plan (1) Nausea & vomiting Status: Acute Assessment and plan: Resolved, will check kUB if does not show obstruction will resume diet. Qualifiers: Vomiting type: unspecified Vomiting Intractability: non-intractable Qualified Code(s): R11.2 - Nausea with vomiting, unspecified (2) Enteropathogenic Escherichia coli infection Status: Acute Assessment and plan: Pt has been treated with cipro. Diarrhea has resolved. Advised good hand hygeine. (3) Fecal occult blood test positive Status: Acute Assessment and plan: Follow up as an outpatient. Hgb is stable. - Time Spent With Patient Total time spent is greater than 50% in coordination of care (as documented) at patient's floor/unit and/or counseling patient: GI History of Present Illness - Data of Consult Patient: new to practice Consult date: 06/13/17 Requesting Physician: Julio Lopez MD - Consult Narrative Reason for consult: nausea, vomiting, diarrhea History of present illness: Mr. Toscano is a 71 year old male history of COPD , and diabetes who presents with complaint of abdominal pain, nausea and vomiting. He also had watery diarrhea. CT abdomen showed mildly dilated loops of small bowel in left mid abdomen likely representing ileus vs developing partial small bowel obstruction. , cholecystectomy, fatty liver, diverticulosis. Labs this morning showed WBC 13.1 hemoglobin 12.8 platelet count 227 sodium 143 potassium 3.3 BUN 19 creatinine 32 BUN 32 creatinine 1.2 glucose 172 in the ER AST was 204 ALT 149 alkaline phosphatase 33 troponin was elevated to a maximum of 0.75 albumin 3.0 lipase less than 3 was positive for occult blood. Stool was also positive for EPEC Escherichia coli. Pt is awake in bed. He is denying any abdominal pain, nausea, vomiting, diarrhea, bloody or tarry stools. He states he ate a regular diet yesterday without nausea or vomiting and had a semiformed bowel movement this morning. He states he feels well and is wanting to go home. Colonoscopy: 06/12 Dr Chester 5 mm polyp EGD: 06/12 Dr Chester, esophagitis NSAIDS/ASA: asa 81 mg Anticoagulants: plavix, heparin Past Med Surg Social Fam HX - Past Medical History Medical history: COPD, coronary artery disease, diabetes, GERD, hyperlipidemia, hypertension, renal disease, other Psychiatric history: no psych history - Past Surgical History Surgical History: angioplasty/stent, cholecystectomy, other (hernia repair) - Social History Smoking Status: Former smoker Smokeless Tobacco Status: No Alcohol use: none Drug use: none - Family History Mother History Unknown: Yes Hx Family Cardiac Disorders: Yes (denies fmh clotting bleeding disorders) Review of Systems: GI: as per [facility] GENERAL: denies fever, or chills EYES: denies yellow discoloration ENT: denies pain with swallowing or difficulty swallowing CARDIO: denies chest pain, palpitations RESP: No Shortness of breath with exertion : denies change in color of urine NEURO: denies any weakness HEME: Denies any bruising MS: denies joint pain, joint swelling or back pain. DERM: denies rash or itching PSYCH: Denies history of anxiety or depression - Constitutional Vitals: Temp Pulse Resp BP Pulse Ox 98.1 F 94 18 155/90 94 06/13/17 15:53 06/13/17 15:53 06/13/17 15:53 06/13/17 15:53 06/13/17 15:53 Exam: CONSTITUTIONAL:~alert, no acute distress.~HEAD:~normocephalic.~EYES:~no jaundice.~NECK:~no obvious swelling.~HEART:~regular rate and rhythm, no murmurs. ~LUNGS:~bilateral good air entry.~ABDOMEN:~non distended, soft, non tander, no masses pulpable, no organomegaly.~RECTAL EXAM:~Deferred.~EXTREMITIES:~no clubbing, cyanosis or edema.~SKIN:~no stigmata of chronic liver disease.~ NEUROLOGIC:~no obvious focal defect.~~~~ Results - Labs CBC & Chem 7: 06/13/17 03:20 06/13/17 03:20 Labs: Last Result Calcium 8.7 mg/dL (8.6-10.3) 06/13/17 03:20 Troponin I 0.75 ng/mL (< 0.04) H* 06/12/17 12:13 Stool Occult Blood Positive (Negative) A 06/09/17 22:20 Entire Visit Hgb 12.8 g/dL (12.9-16.9) L 06/13/17 03:20 Hct 36.9 % (37.5-50.1) L 06/13/17 03:20 PT 11.1 Seconds (9.4-12.1) 06/11/17 12:02 Total Bilirubin 0.3 mg/dL (0.3-1.0) 06/10/17 08:18 AST 102 Units/L (13-39) H 06/10/17 08:18 ALT 118 Units/L (7-52) H 06/10/17 08:18 Lipase < 3 Units/L (11-82) L 06/09/17 21:11 - ABG ABG results: ABG ABG pH 7.34 pH Units (7.32-7.45) 06/11/17 09:40 ABG pCO2 26 mmHg (35-45) L 06/11/17 09:40 ABG pO2 78 mmHg (85-104) L 06/11/17 09:40 ABG O2 Saturation 95 % (95-98) 06/11/17 09:40 PT/INR, D-dimer PT 11.1 Seconds (9.4-12.1) 06/11/17 12:02 D-Dimer 5051 ng/mLFEU (0-500) H 06/09/17 18:34 - Impressions Impressions KUB X-Ray 06/13/17 11:13 IMPRESSION: Nonspecific bowel gas pattern. D/ / Rick Lamb MD / Rick Lamb MD Interpreting Provider: Rick Lamb MD Consult Discharge Plan - Plan Instructions: Ciprofloxacin (By mouth), Metoprolol (By mouth), Furosemide (By mouth), Prednisone (By mouth), Potassium Chloride (By mouth), Acute Respiratory Distress Syndrome (DC), Chronic Obstructive Pulmonary Disease (DC) Referrals: Diego Morfin MD [Partnered Physician] - (in 1-2 weeks, emailed office for appt.) Adam Wan, CAR EXAMINER [Advanced Practice Nurse] - 06/21/17 11:00 am Ana Paula Bull DO [Partnered Physician] - (web request sent to office, for appt in 1-2 weeks) Prescriptions: Ciprofloxacin [Cipro] 500 mg PO BID #20 tablet Furosemide [Lasix] 20 mg PO DAILY #30 tablet Metoprolol [Lopressor] 50 mg PO BID #60 tablet Potassium Chloride 20 meq PO DAILY #30 tab.er.prt predniSONE [PredniSONE] 40 mg PO DAILY #10 tablet <Diego Morfin - Last Filed: 06/20/17 05:37> Date of Encounter: 06/13/17 - Time Spent With Patient Total time spent is greater than 50% in coordination of care (as documented) at patient's floor/unit and/or counseling patient: GI History of Present Illness - Data of Consult Requesting Physician: Julio Lopez MD - Consult Narrative History of present illness: Mr. Toscano is a 71 year old male - Constitutional Vitals: Temp Pulse Resp BP Pulse Ox 98.1 F 94 18 155/90 92 06/13/17 16:10 06/13/17 16:10 06/13/17 16:21 06/13/17 16:10 06/13/17 16:21 Results - Labs CBC & Chem 7: 06/13/17 03:20 06/13/17 03:20 Labs: Last Result Calcium 8.7 mg/dL (8.6-10.3) 06/13/17 03:20 Troponin I 0.75 ng/mL (< 0.04) H* 06/12/17 12:13 Stool Occult Blood Positive (Negative) A 06/09/17 22:20 Entire Visit Hgb 12.8 g/dL (12.9-16.9) L 06/13/17 03:20 Hct 36.9 % (37.5-50.1) L 06/13/17 03:20 PT 11.1 Seconds (9.4-12.1) 06/11/17 12:02 Total Bilirubin 0.3 mg/dL (0.3-1.0) 06/10/17 08:18 AST 102 Units/L (13-39) H 06/10/17 08:18 ALT 118 Units/L (7-52) H 06/10/17 08:18 Lipase < 3 Units/L (11-82) L 06/09/17 21:11 - ABG ABG results: ABG ABG pH 7.34 pH Units (7.32-7.45) 06/11/17 09:40 ABG pCO2 26 mmHg (35-45) L 06/11/17 09:40 ABG pO2 78 mmHg (85-104) L 06/11/17 09:40 ABG O2 Saturation 95 % (95-98) 06/11/17 09:40 PT/INR, D-dimer PT 11.1 Seconds (9.4-12.1) 06/11/17 12:02 D-Dimer 5051 ng/mLFEU (0-500) H 06/09/17 18:34 - Attending Attestation Agree with plan. Discussed with team. I have personally performed a face to face evaluation on this patient. I have reviewed and agree with the care plan. History and Exam by me shows:
--- NOTE | 2017-06-13 17:14 | Discharge Summary ---
- NOTES TO OUTPATIENT PROVIDER Notes to Outpatient Provider: Patient admitted with nausea vomiting and abdominal pain. Diagnosed with enteropathogenic Escherichia coli enteritis/ colitis. Treated with antibiotics. Also had acute kidney injury on presentation which resolved with IV hydration. He did develop pulmonary edema due to IV fluids. This has now resolved after he was placed back on Lasix. His renal function has remained stable. He did have troponin elevation. Cardiology did not recommend on any urgent cardiac catheterization as patient had normal ejection fraction. He did not have any chest pain. He did have stool positive for occult blood. Gastroenterology evaluated patient and recommended outpatient follow-up for this. His blood counts have remained stable here. Patient will be discharged today and will follow up with GI and cardiology as outpatient. Date of Encounter: 06/13/17 Time of Encounter: 17:12 - Discharge Diagnosis (1) Enteropathogenic Escherichia coli infection Priority: Primary Status: Acute (2) Anemia Priority: Secondary Status: Chronic Qualifiers: Anemia type: due to chronic kidney disease Chronic kidney disease stage: stage 2 (mild) Qualified Code(s): N18.2 - Chronic kidney disease, stage 2 ( mild); D63.1 - Anemia in chronic kidney disease; D63.1 - Anemia in chronic kidney disease (3) Diastolic congestive heart failure Priority: Secondary Status: Acute Qualifiers: Heart failure chronicity: acute on chronic Qualified Code(s): I50.33 - Acute on chronic diastolic (congestive) heart failure (4) COPD exacerbation Priority: Secondary Status: Acute (5) Acute respiratory failure with hypoxemia Priority: Secondary Status: Resolved (6) Elevated troponin Priority: Secondary Status: Acute (7) Lactic acidosis Priority: Secondary Status: Resolved (8) HARRY (acute kidney injury) Priority: Secondary Status: Resolved (9) Abdominal pain Priority: Secondary Status: Resolved (10) Hypotension Priority: Secondary Status: Resolved Qualifiers: Hypotension type: unspecified hypotension type Qualified Code(s): I95.9 - Hypotension, unspecified (11) DVT prophylaxis Priority: Secondary Status: Acute (12) Elevated d-dimer Priority: Secondary Status: Acute (13) Abnormal liver enzymes Priority: Secondary Status: Acute (14) Nonsustained ventricular tachycardia Priority: Secondary Status: Acute (15) Fecal occult blood test positive Priority: Secondary Status: Acute (16) Diabetes Priority: Secondary Status: Chronic Qualifiers: Diabetes mellitus type: type 2 Diabetes mellitus care home insulin use: with roasterman use Diabetes mellitus complication status: with kidney complications Diabetes mellitus complication detail: with chronic kidney disease Chronic kidney disease stage: stage 2 (mild) Qualified Code(s): E11.22 - Type 2 diabetes mellitus with diabetic chronic kidney disease; N18.2 - Chronic kidney disease, stage 2 (mild); N18.2 - Chronic kidney disease, stage 2 (mild); Z79.4 - assisted (current) use of insulin; Z79.4 - roasterman (current) use of insulin; Z79.4 - assisted (current) use of insulin; Z79.4 - roasterman ( current) use of insulin Hospital course: Mr. Toscano is a 71 year old male patient with history of coronary artery disease, COPD, diabetes, hypertension, hyperlipidemia, chronic kidney disease who was admitted with nausea vomiting and abdominal pain. He was Diagnosed with enteropathogenic Escherichia coli enteritis/colitis. Treated with Zosyn initially and transitioned to oral ciprofloxacin. Also had acute kidney injury on presentation likely due to dehydration and diarrhea which resolved with IV hydration. He did develop pulmonary edema due to IV fluids. This has now resolved after he was placed on Lasix. His renal function has remained stable. He did have troponin elevation. Cardiology was consulted. They did not recommend on any urgent cardiac catheterization. 2-D echocardiogram showed normal ejection fraction with mild basal inferior wall hypokinesis. Cardiology does not recommend further cardiac workup eventually. He did not have any chest pain. He did have stool positive for occult blood. Gastroenterology evaluated patient and recommended outpatient follow-up for this. His blood counts have remained stable here. Patient wants to be discharged today and follow-up as outpatient as he feels he is doing better. As no further Workup planned urgently, patient will be discharged today and will follow up with GI and cardiology as outpatient. Discharge discussed with: patient, nurse - Time Spent with Patient Total time spent providing and/or coordinating discharge services: Greater than 30 minutes (35 min) - Discharge Medications Prescriptions: Ciprofloxacin [Cipro] 500 mg PO BID #20 tablet Furosemide [Lasix] 20 mg PO DAILY #30 tablet Metoprolol [Lopressor] 50 mg PO BID #60 tablet Potassium Chloride 20 meq PO DAILY #30 tab.er.prt predniSONE [PredniSONE] 40 mg PO DAILY #10 tablet Home Medications: Albuterol Sulfate [Ventolin Hfa] 2 puff IH Q4H PRN 06/07/16 [History] Aspirin 81 mg PO DAILY 06/07/16 [History] Citalopram [CeleXA] 20 mg PO DAILY 06/07/16 [History] CloNIDine HCl [Kapvay] 0.1 mg PO HS 06/07/16 [History] Clopidogrel [Plavix] 75 mg PO DAILY 06/07/16 [History] Famotidine [Pepcid] 40 mg PO DAILY 06/07/16 [History] Insulin ASPART [Novolog Flexpen] 0 unit SQ TIDWM 06/07/16 [History] Insulin Glargine,Hum.rec.anlog [Lantus Solostar] 50 unit SQ HS 06/07/16 [History ] Lovastatin 40 mg PO DAILY 06/07/16 [History] Metformin HCl [Glucophage] 1,000 mg PO BID 06/07/16 [History] Aclidinium Maple [Tudorza Pressair] 1 puff IH BID 10/19/16 [History] Amlodipine Besylate 10 mg PO DAILY 10/19/16 [History] Levothyroxine Sodium [Levoxyl] 88 mcg PO 0630 10/19/16 [History] Lisinopril/Hydrochlorothiazide [Zestoretic 20-25 mg Tablet] 1 tab PO DAILY 10/19 [History] Insulin Glargine,Hum.rec.anlog [Toujeo Solostar] 35 unit SQ DAILY 06/09/17 [ History] Ciprofloxacin [Cipro] 500 mg PO BID #20 tablet 06/13/17 [Rx] Furosemide [Lasix] 20 mg PO DAILY #30 tablet 06/13/17 [Rx] Metoprolol [Lopressor] 50 mg PO BID #60 tablet 06/13/17 [Rx] Potassium Chloride 20 meq PO DAILY #30 tab.er.prt 06/13/17 [Rx] predniSONE [PredniSONE] 40 mg PO DAILY #10 tablet 06/13/17 [Rx] Allergies/Adverse Reactions: 3 Allergy/AdvReac Type Severity Reaction Status Date / Time No Known Allergies Allergy Verified 10/19/16 09:54 Date of admission: 06/09/17 18:53 Primary care physician: Suzan Kenny CNP Consults: 06/11/17 07:49 Consult to Cardiology [CONS] Routine Comment: Consulting Provider: Cardiology Laura Reason for Consult: Elevated troponin Call Completed: Yes 06/12/17 16:14 Consult to Gastroenterology [CONS] Routine Consulting Provider: Gastroenterology Laura Reason for Consult: FOBT + Time Notified: 16:15 Call Completed: Yes - Constitutional Vitals: Temp Pulse Resp BP Pulse Ox 98.1 F 94 18 155/90 92 06/13/17 16:10 06/13/17 16:10 06/13/17 16:21 06/13/17 16:10 06/13/17 16:21 General appearance: Present: cooperative, A&O X 3, no acute distress, answers questions appropriately - Respiratory Respiratory exam: Present: prolonged expiratory phase. Absent: accessory muscle use, rales, rhonchi, wheezes - Cardiovascular Cardiovascular exam: Present: RRR, +S1, +S2. Absent: diastolic murmur, gallop, rubs, systolic murmur - GI/Abdominal GI/Abdominal exam: Present: normal bowel sounds, soft, no peritoneal signs. Absent: distended, tenderness - Extremities Exam Extremities exam: Present: warm, radial pulses palpable and symmetrical. Absent : calf tenderness, cyanotic, pedal edema - Neurological Exam Neurological exam: Present: CN II-XII intact, oriented X3, no focal deficits. Absent: facial droop, speech deficit - Patient Status Disposition: Home, Self-Care Condition: Good Functional capacity at discharge: independent ambulation Overall status at discharge: patient is progressing back to baseline - Discharge Instructions Instructions: Chronic Obstructive Pulmonary Disease (DC), Acute Respiratory Distress Syndrome (DC) Follow Up With: Adam Wan CNP [Advanced Practice Nurse] - 06/21/17 11:00 am Diego Morfin MD [Partnered Physician] - (in 1-2 weeks) Ana Paula Bull DO [Partnered Physician] - (in 1-2 weeks) - Diet and Activity Activity: increase activity as tolerated Diet: diabetic diet, low fat, low cholesterol, low salt diet - VTE Documentation of Mechanical Device: Intermittent pneumatic compression device
[2017-06-13] MEDS ORDERED: Insulin DETEMIR 100 UNIT/ML X5UNITS SQ SCH (21:00)
[2017-06-14] MEDS ORDERED: Insulin DETEMIR 100 UNIT/ML X5UNITS SQ SCH (09:00)
[2017-06-14] MEDS ORDERED: predniSONE 20 MG TABLET PO SCH (09:00)
--- NOTE | 2017-06-15 11:37 | Electrocardiograph Report ---
[address] [address] Test Date: 2017-06-09 Pat Name: Siena Toscano Department: 102 Room: 2N07 Gender: M [employer] In[employer]: Tmr : 1945 Requested By: Gaurav Stauffer Order Number: [id number] Reading MD: Sky Hernández Measurements Intervals [place] Rate: 94 P: 62 AL: 161 QRS: -5 QRSD: 140 T: -37 QT: 372 QTc: 424 Interpretive Statements SINUS RHYTHM RIGHT BUNDLE BRANCH BLOCK MODERATE T-WAVE ABNORMALITY, CONSIDER LATERAL ISCHEMIA Electronically Signed On 06-15-2017 11:35:31 EDT by Sky Hernández
== END 2017-06-13 19:03 | disposition home or self-care (01) | DRG 248 ==
LOC: EMEROO 13:01 → ICNU 18:53 → SUATTDRO 18:53 → ICNU 19:51 → 2NNU 06-10 02:54
PROVIDERS: ADMIT Internal Medicine; ATTEND Internal Medicine

== ENCOUNTER 2021-01-12 04:05 | Inpatient (IN) ==
[~2021-01-12 04:05] MED LIST: Acetaminophen 325 MG TABLET PO PRN; Naloxone 0.4 MG/ML INJ IVP PRN; Ondansetron 4 MG/2 ML VIAL IVP PRN
[2021-01-12] MEDS ORDERED: *HR* Heparin 5,000 UNIT/ML VIAL IVP PRN ×2 (04:19)
[2021-01-12] MEDS ORDERED: Heparin 25,000UNIT/250ML 1/2NS 25,000 UNIT/250 ML IV.SOLN IVC SCH (04:30)
[2021-01-12] MEDS ORDERED: Vancomycin 1 EACH in 0.9 % Sodium Chloride 250 ML IVPB PRN (05:00)
[2021-01-12 05:13] LABS: Basophils # 0.2 K/mcL (0.0-0.2); Basophils % 0.8 %; Eosinophils # 0.1 K/mcL (0.0-0.6); Eosinophils % 0.3 %; Hemoglobin 11.1 g/dL (12.9-16.9); Lymphocytes # 1.8 K/mcL (0.6-4.6); Lymphocytes % 7.7 %; Mean Corpuscular HGB Conc 32.6 g/dL (31.6-35.5); Mean Corpuscular Hemoglobin 30.6 pg (28.0-33.3); Mean Corpuscular Volume 93.7 fL (83.0-100.0); Monocytes # 1.6 K/mcL (0.0-1.3); Monocytes % 6.8 %; Neutrophils # 18.8 K/mcL (1.6-8.9); Platelet Count 406 K/mcL (140-400); Red Blood Count 3.63 M/mcL (4.19-5.50); Red Cell Distribution Width 13.7 % (11.5-14.5); Segmented Neutrophils % 80.4 %; White Blood Count 23.3 K/mcL (4.3-11.1)
[2021-01-12 05:20] LABS: Heparin anti-factor XA UFH 0.11 IU/mL (0.30-0.70)
[2021-01-12 05:21] LABS: INR 1.3; Prothrombin Time 14.5 Seconds (9.4-12.1)
[2021-01-12 05:31] LABS: Chol/HDL Ratio 6.1 (0-4.9); Magnesium 2.3 mg/dL (1.6-2.6)
[2021-01-12 06:14] LABS: Calcium 8.7 mg/dL (8.6-10.3); Potassium 5.6 mEq/L (3.5-5.1); Troponin I 0.08 ng/mL (< 0.04)
[2021-01-12 06:50] LABS: Bacteria,Urine Few per hpf (None-Few); Bilirubin,Urine Negative (Negative); Blood,Urine Negative (Negative); Clarity,Urine Clear (Clear); Color,Urine Light-Yellow (Yellow); Glucose,Urine (UA) 500 mg/dL (Normal); Ketones,Urine Negative (Negative); Leukocyte Esterase,Urine Negative (Negative); Nitrite,Urine Negative (Negative); PH,Urine 5.5 pH Units (5.0-8.0); Protein,Urine Trace mg/dL (Neg-Trace); Specific Gravity,Urine 1.016 (1.010-1.025); Squamous Epithelial Cell,Urine Few per hpf (None-Few); Urobilinogen,Urine Normal (Normal); WBC,Urine 0-3 per hpf (0-3)
[2021-01-12] MEDS ORDERED: *HR* Dextrose 50 % in Water (Syg) 50 ML SYRINGE IVP PRN (06:53)
[2021-01-12] MEDS ORDERED: D5% in Water 1,000 ML IVC PRN (06:53)
[2021-01-12] MEDS ORDERED: Dextrose Gel 15 GM/37.5 ML TUBE PO PRN ×2 (06:53)
[2021-01-12] MEDS: Piperacillin/Tazobactam 3.375 GM in 0.9 % Sodium Chloride Mini Bag 100 ML IVPB SCH ×2 (07:45→16:51)
[2021-01-12] MEDS: Insulin LISPRO 300 UNITS/3 ML VIAL SUBQ SCH ×5 (07:54→20:06)
[2021-01-12] MEDS ORDERED: Lidocaine -MPF 2% 5 ML VIAL ONE (10:33)
[2021-01-12] MEDS ORDERED: Ondansetron 4 MG/2 ML VIAL ONE (10:33)
[2021-01-12] MEDS ORDERED: *HR* FentaNYL (PF) 100 MCG/2 ML VIAL ONE (10:33)
[2021-01-12] MEDS ORDERED: Lidocaine HCL 4 ML Topical Solution (Laryng-O-Jet Kit Sterile Pak) TP ONE (10:33)
[2021-01-12] MEDS ORDERED: *HR* Propofol 200 MG/20 ML VIAL IVP ONE (10:33)
[2021-01-12] MEDS ORDERED: *HR* FentaNYL (PF) 100 MCG/2 ML VIAL IVP PRN (10:40)
[2021-01-12] MEDS ORDERED: Albuterol 2.5 MG/3 ML NEBULIZER IH ONE (12:17)
[2021-01-12] MEDS ORDERED: Albuterol 2.5 MG/3 ML NEBULIZER ONE (12:22)
[2021-01-12] MEDS: Aspirin 81 MG TAB.CHEW PO SCH (13:08)
[2021-01-12] MEDS: Sennosides/Docusate Sodium TABLET PO SCH (13:09)
[2021-01-12] MEDS: amLODIPine 5 MG TABLET PO SCH (13:09)
[2021-01-12 14:23] LABS: Calcium 8.7 mg/dL (8.6-10.3); Potassium 3.4 mEq/L (3.5-5.1)
[2021-01-12 16:17] LABS: Adenovirus Not Detected (Not Detect); Bordetella Pertussis Not Detected (Not Detect); Chlamydophila pneumoniae Not Detected (Not Detect); Coronavirus 229E Not Detected (Not Detect); Coronavirus HKU1 Not Detected (Not Detect); Coronavirus NL63 Not Detected (Not Detect); Coronavirus OC43 Not Detected (Not Detect); Human Metapneumovirus Not Detected (Not Detect); Human Rhinovirus/Enterovirus DETECTED (Not Detect); Influenza A Subtype 2009 H1 Not Detected (Not Detect); Influenza B Not Detected (Not Detect); Mycoplasma pneumoniae Not Detected (Not Detect); Parainfluenza Virus 1 Not Detected (Not Detect); Parainfluenza Virus 2 Not Detected (Not Detect); Parainfluenza Virus 3 Not Detected (Not Detect); Parainfluenza Virus 4 Not Detected (Not Detect); Respiratory Syncytial Virus Not Detected (Not Detect); SARS-CoV-2 Not Detected (Not Detect)
[2021-01-12] MEDS: *HR* Heparin 5,000 UNIT/ML VIAL SQ SCH (17:24)
[2021-01-12 17:33] LABS: RBC,Pleural Fluid 71000 RBC/mcL
[2021-01-12 17:42] LABS: Glucose,Pleural Fluid 98 mg/dL (No Ref Range); LDH,Pleural Fluid > 1200 Units/L (No Ref Range)
[2021-01-12 19:06] LABS: Appearance of Body Fluid Slightly Hazy (Clear)
[2021-01-12 19:07] LABS: Volume of Body Fluid 20 mL
[2021-01-12 20:00] LABS: Basophils,Pleural Fluid 0 %; Eosinophils,Pleural Fluid 0 %; Lymphocytes,Pleural Fluid 0 %; Monocytes,Pleural Fluid 0 %
[2021-01-12 20:02] LABS: Appearance of Pleural Fl Cloudy (Clear)
[2021-01-12] MEDS: traZODone 50 MG TABLET PO SCH (20:05)
[2021-01-12] MEDS: Insulin DETEMIR 100 UNIT/ML X5UNITS SUBQ SCH (20:06)
[2021-01-13] MEDS: Piperacillin/Tazobactam 3.375 GM in 0.9 % Sodium Chloride Mini Bag 100 ML IVPB SCH ×4 (00:14→23:50)
[2021-01-13] MEDS: *HR* Heparin 5,000 UNIT/ML VIAL SQ SCH (05:32)
[2021-01-13 06:35] LABS: Basophils # 0.2 K/mcL (0.0-0.2); Basophils % 0.8 %; Hemoglobin 11.2 g/dL (12.9-16.9); Immature Granulocytes % 3.9 % (0-4); Lymphocytes # 1.4 K/mcL (0.6-4.6); Lymphocytes % 6.5 %; Mean Corpuscular HGB Conc 31.1 g/dL (31.6-35.5); Mean Corpuscular Hemoglobin 30.3 pg (28.0-33.3); Mean Corpuscular Volume 97.3 fL (83.0-100.0); Mean Platelet Volume 11.7 fL (9.4-12.4); Monocytes # 0.7 K/mcL (0.0-1.3); Monocytes % 3.2 %; Neutrophils # 18.8 K/mcL (1.6-8.9); Platelet Count 393 K/mcL (140-400); Red Cell Distribution Width 13.9 % (11.5-14.5); Segmented Neutrophils % 85.6 %
[2021-01-13 07:39] LABS: Calcium 8.6 mg/dL (8.6-10.3); Potassium 3.5 mEq/L (3.5-5.1)
[2021-01-13] MEDS: amLODIPine 5 MG TABLET PO SCH (08:32)
[2021-01-13] MEDS: Aspirin 81 MG TAB.CHEW PO SCH (08:32)
[2021-01-13] MEDS: Sennosides/Docusate Sodium TABLET PO SCH ×2 (08:32→20:06)
[2021-01-13] MEDS: Insulin DETEMIR 100 UNIT/ML X5UNITS SUBQ SCH ×2 (08:38→20:49)
[2021-01-13] MEDS ORDERED: *HR* HYDROcodone/Acet 5/325 mg TABLET PO PRN (10:29)
[2021-01-13 11:30] LABS: Lactate Dehydrogenase 334 Units/L (140-271); Total Protein 7.1 g/dL (6.4-8.9)
[2021-01-13] MEDS: Insulin LISPRO 300 UNITS/3 ML VIAL SUBQ SCH ×3 (12:45→20:06)
[2021-01-13] MEDS ORDERED: Perflutren Lipid Microsphere 1.3 ML in 0.9 % Sodium Chloride 8.7 ML IVP PRN (12:52)
[2021-01-13] MEDS: Gabapentin 300 MG CAPSULE PO SCH ×2 (14:22→20:06)
[2021-01-13 14:49] LABS: Magnesium 2.1 mg/dL (1.6-2.6)
[2021-01-13] MEDS: traZODone 50 MG TABLET PO SCH (20:06)
[2021-01-14 05:24] LABS: Basophils # 0.1 K/mcL (0.0-0.2); Basophils % 0.7 %; Eosinophils % 0.2 %; Hematocrit 34.3 % (37.5-50.1); Hemoglobin 11.5 g/dL (12.9-16.9); Immature Granulocytes % 4.5 % (0-4); Lymphocytes # 2.2 K/mcL (0.6-4.6); Lymphocytes % 11.2 %; Mean Corpuscular HGB Conc 33.5 g/dL (31.6-35.5); Mean Corpuscular Hemoglobin 31.3 pg (28.0-33.3); Mean Corpuscular Volume 93.5 fL (83.0-100.0); Mean Platelet Volume 11.5 fL (9.4-12.4); Monocytes # 1.1 K/mcL (0.0-1.3); Monocytes % 5.3 %; Neutrophils # 15.6 K/mcL (1.6-8.9); Platelet Count 440 K/mcL (140-400); Red Blood Count 3.67 M/mcL (4.19-5.50); Red Cell Distribution Width 13.9 % (11.5-14.5); Segmented Neutrophils % 78.1 %
[2021-01-14 05:41] LABS: BUN/Creatinine Ratio 33 (6-26); Blood Urea Nitrogen 44 mg/dL (8-23); Calcium 8.8 mg/dL (8.6-10.3); Carbon Dioxide 27 mEq/L (23-29); Chloride 109 mEq/L (98-107); Glucose 107 mg/dL (70-105); Osmolality,Calculated 312 (280-300); Potassium 3.3 mEq/L (3.5-5.1); Sodium 145 mEq/L (136-145); eGFR For African Americans > 60 (> 60); eGFR For Non-African Americans 53 (> 60)
[2021-01-14] MEDS ORDERED: *HR* Propofol 200 MG/20 ML VIAL IVP ONE (07:05)
[2021-01-14] MEDS: Gabapentin 300 MG CAPSULE PO SCH (08:49)
[2021-01-14] MEDS: amLODIPine 5 MG TABLET PO SCH (08:50)
[2021-01-14] MEDS: Sennosides/Docusate Sodium TABLET PO SCH ×2 (08:50→21:13)
[2021-01-14] MEDS: Insulin LISPRO 300 UNITS/3 ML VIAL SUBQ SCH ×3 (08:51→21:14)
[2021-01-14] MEDS: Piperacillin/Tazobactam 3.375 GM in 0.9 % Sodium Chloride Mini Bag 100 ML IVPB SCH ×3 (08:57→23:30)
[2021-01-14] MEDS: Insulin DETEMIR 100 UNIT/ML X5UNITS SUBQ SCH ×2 (08:57→21:14)
[2021-01-14] MEDS ORDERED: *HR* HYDROmorphone PF 0.5 MG/0.5 ML SYRINGE IVP PRN (11:04)
[2021-01-14] MEDS ORDERED: Ondansetron 4 MG/2 ML VIAL IVP PRN ×2 (11:04→15:06)
[2021-01-14] MEDS ORDERED: Lidocaine -MPF 2% 5 ML VIAL ONE ×2 (11:13→12:03)
[2021-01-14] MEDS ORDERED: *HR* FentaNYL (PF) 100 MCG/2 ML VIAL ONE (11:13)
[2021-01-14] MEDS ORDERED: *HR* Succinylcholine 200 MG/10 ML VIAL IVP ONE (11:13)
[2021-01-14] MEDS ORDERED: *HR* Rocuronium Bromide 50 MG/5 ML VIAL ONE (11:13)
[2021-01-14] MEDS ORDERED: EPHEDrine 50 MG/ML VIAL ONE ×2 (11:30→12:07)
[2021-01-14] MEDS ORDERED: Sugammadex Sodium 200 MG/2 ML VIAL IV ONE (12:22)
[2021-01-14] MEDS ORDERED: Albumin Human 5% 12.5 GM/250 ML IV.SOLN IVC SCH ×2 (13:30→13:45)
[2021-01-14] MEDS ORDERED: 0.9 % Sodium Chloride 1,000 ML IVC SCH (15:06)
[2021-01-14] MEDS ORDERED: *HR* Dextrose 50 % in Water (Syg) 50 ML SYRINGE IVP PRN (15:06)
[2021-01-14] MEDS ORDERED: Acetaminophen 325 MG TABLET PO PRN (15:06)
[2021-01-14] MEDS ORDERED: Dextrose Gel 15 GM/37.5 ML TUBE PO PRN ×2 (15:06)
[2021-01-14] MEDS ORDERED: Perflutren Lipid Microsphere 1.3 ML in 0.9 % Sodium Chloride 8.7 ML IVP PRN (15:06)
[2021-01-14] MEDS ORDERED: D5% in Water 1,000 ML IVC PRN (15:06)
[2021-01-14] MEDS ORDERED: Naloxone 0.4 MG/ML INJ IVP PRN (15:06)
[2021-01-14] MEDS: *HR* Heparin 5,000 UNIT/ML VIAL SQ SCH ×2 (15:55→21:15)
[2021-01-14] MEDS ORDERED: Gabapentin 300 MG CAPSULE PO SCH (21:00)
[2021-01-14] MEDS: Gabapentin 100 MG CAPSULE PO SCH (21:13)
[2021-01-14] MEDS: traZODone 50 MG TABLET PO SCH (21:14)
[2021-01-15] MEDS: *HR* HYDROcodone/Acet 5/325 mg TABLET PO PRN ×2 (01:13→18:43)
[2021-01-15 03:43] LABS: Basophils % 0.1 %; Hematocrit 21.3 % (37.5-50.1); Immature Granulocytes % 2.5 % (0-4); Lymphocytes # 1.4 K/mcL (0.6-4.6); Mean Corpuscular HGB Conc 31.5 g/dL (31.6-35.5); Mean Corpuscular Hemoglobin 30.6 pg (28.0-33.3); Mean Corpuscular Volume 97.3 fL (83.0-100.0); Mean Platelet Volume 11.8 fL (9.4-12.4); Monocytes # 1.2 K/mcL (0.0-1.3); Monocytes % 6.1 %; Neutrophils # 16.8 K/mcL (1.6-8.9); Platelet Count 312 K/mcL (140-400); Red Blood Count 2.19 M/mcL (4.19-5.50); Red Cell Distribution Width 14.5 % (11.5-14.5); Segmented Neutrophils % 84.3 %; White Blood Count 19.9 K/mcL (4.3-11.1)
[2021-01-15 03:48] LABS: Hemoglobin 6.7 g/dL (12.9-16.9)
[2021-01-15 04:24] LABS: BUN/Creatinine Ratio 34 (6-26); Blood Urea Nitrogen 40 mg/dL (8-23); Calcium 7.4 mg/dL (8.6-10.3); Carbon Dioxide 23 mEq/L (23-29); Chloride 114 mEq/L (98-107); Glucose 272 mg/dL (70-105); Osmolality,Calculated 317 (280-300); Potassium 4.2 mEq/L (3.5-5.1); Sodium 144 mEq/L (136-145); eGFR For African Americans > 60 (> 60); eGFR For Non-African Americans > 60 (> 60)
[2021-01-15 04:49] LABS: Basophils % 0.1 %; Hematocrit 21.1 % (37.5-50.1); Hemoglobin 6.7 g/dL (12.9-16.9); Immature Granulocytes % 2.6 % (0-4); Lymphocytes # 1.4 K/mcL (0.6-4.6); Lymphocytes % 6.8 %; Mean Corpuscular HGB Conc 31.8 g/dL (31.6-35.5); Mean Corpuscular Volume 97.7 fL (83.0-100.0); Monocytes # 1.2 K/mcL (0.0-1.3); Monocytes % 5.8 %; Neutrophils # 17.9 K/mcL (1.6-8.9); Platelet Count 303 K/mcL (140-400); Red Blood Count 2.16 M/mcL (4.19-5.50); Red Cell Distribution Width 14.6 % (11.5-14.5); Segmented Neutrophils % 84.7 %; White Blood Count 21.2 K/mcL (4.3-11.1)
[2021-01-15] MEDS: *HR* Heparin 5,000 UNIT/ML VIAL SQ SCH ×3 (05:29→20:35)
[2021-01-15] MEDS ORDERED: 0.9 % Sodium Chloride 250 ML ONE (06:36)
[2021-01-15 07:13] LABS: Fluid Source for Triglycerides PLEURAL FLUID; Triglycerides,Body Fluid 39 mg/dL
[2021-01-15] MEDS: Gabapentin 100 MG CAPSULE PO SCH ×3 (07:40→20:35)
[2021-01-15] MEDS: Sennosides/Docusate Sodium TABLET PO SCH ×2 (07:41→20:36)
[2021-01-15] MEDS: Aspirin 81 MG TAB.CHEW PO SCH (07:41)
[2021-01-15] MEDS: Piperacillin/Tazobactam 3.375 GM in 0.9 % Sodium Chloride Mini Bag 100 ML IVPB SCH (07:42)
[2021-01-15] MEDS: Insulin LISPRO 300 UNITS/3 ML VIAL SUBQ SCH ×5 (07:43→20:36)
[2021-01-15] MEDS: Insulin DETEMIR 100 UNIT/ML X5UNITS SUBQ SCH ×2 (07:44→20:36)
[2021-01-15] MEDS ORDERED: amLODIPine 5 MG TABLET PO SCH (09:00)
[2021-01-15 12:08] LABS: Hematocrit 28.9 % (37.5-50.1); Mean Corpuscular HGB Conc 31.5 g/dL (31.6-35.5); Mean Corpuscular Hemoglobin 29.4 pg (28.0-33.3); Mean Corpuscular Volume 93.2 fL (83.0-100.0); Mean Platelet Volume 11.6 fL (9.4-12.4); Platelet Count 301 K/mcL (140-400); Red Cell Distribution Width 15.9 % (11.5-14.5); White Blood Count 19.8 K/mcL (4.3-11.1)
[2021-01-15 12:10] LABS: Hemoglobin 9.1 g/dL (12.9-16.9)
[2021-01-15 12:29] LABS: BUN/Creatinine Ratio 31 (6-26); Blood Urea Nitrogen 41 mg/dL (8-23); Calcium 7.9 mg/dL (8.6-10.3); Carbon Dioxide 23 mEq/L (23-29); Chloride 111 mEq/L (98-107); Glucose 272 mg/dL (70-105); Magnesium 1.9 mg/dL (1.6-2.6); Osmolality,Calculated 314 (280-300); Potassium 4.1 mEq/L (3.5-5.1); Sodium 142 mEq/L (136-145); eGFR For African Americans > 60 (> 60); eGFR For Non-African Americans 53 (> 60)
[2021-01-15] MEDS ORDERED: Olopatadine Hcl [Pataday] 2.5 ML Drops OP PRN (14:56)
[2021-01-15] MEDS ORDERED: Ipratropium/Albuterol Neb 3 ML IH PRN (14:58)
[2021-01-15] MEDS: Vancomycin 1,500 MG/265 ML IV.SOLN IVPB SCH (17:01)
[2021-01-15] MEDS: traZODone 50 MG TABLET PO SCH (20:35)
[2021-01-15] MEDS: cloNIDine HCL 0.1 MG TABLET PO SCH (20:36)
[2021-01-15 20:41] LABS: Hematocrit 27.1 % (37.5-50.1); Hemoglobin 8.9 g/dL (12.9-16.9)
[2021-01-16] MEDS: *HR* Heparin 5,000 UNIT/ML VIAL SQ SCH ×3 (06:03→23:46)
[2021-01-16] MEDS: Insulin LISPRO 300 UNITS/3 ML VIAL SUBQ SCH ×4 (07:10→20:01)
[2021-01-16] MEDS: Gabapentin 100 MG CAPSULE PO SCH ×3 (07:58→19:59)
[2021-01-16] MEDS: amLODIPine 5 MG TABLET PO SCH (07:58)
[2021-01-16] MEDS: Aspirin 81 MG TAB.CHEW PO SCH (07:58)
[2021-01-16] MEDS: Sennosides/Docusate Sodium TABLET PO SCH ×2 (07:58→19:59)
[2021-01-16] MEDS: *HR* HYDROcodone/Acet 5/325 mg TABLET PO PRN ×2 (08:01→15:40)
[2021-01-16] MEDS: Insulin DETEMIR 100 UNIT/ML X5UNITS SUBQ SCH ×2 (08:03→20:00)
[2021-01-16] MEDS ORDERED: Tiotropium 10 INH DOSE IH SCH (09:00)
[2021-01-16 09:45] LABS: Hemoglobin 8.8 g/dL (12.9-16.9)
[2021-01-16 09:46] LABS: Hematocrit 26.8 % (37.5-50.1); Mean Corpuscular HGB Conc 32.8 g/dL (31.6-35.5); Mean Corpuscular Hemoglobin 30.3 pg (28.0-33.3); Mean Corpuscular Volume 92.4 fL (83.0-100.0); Mean Platelet Volume 11.7 fL (9.4-12.4); Platelet Count 348 K/mcL (140-400); Red Cell Distribution Width 16.1 % (11.5-14.5); White Blood Count 25.5 K/mcL (4.3-11.1)
[2021-01-16 10:06] LABS: BUN/Creatinine Ratio 33 (6-26); Blood Urea Nitrogen 46 mg/dL (8-23); Calcium 8.2 mg/dL (8.6-10.3); Carbon Dioxide 24 mEq/L (23-29); Chloride 112 mEq/L (98-107); Glucose 108 mg/dL (70-105); Magnesium 2.1 mg/dL (1.6-2.6); Osmolality,Calculated 312 (280-300); Potassium 3.6 mEq/L (3.5-5.1); Sodium 145 mEq/L (136-145); eGFR For African Americans > 60 (> 60); eGFR For Non-African Americans 50 (> 60)
[2021-01-16 10:27] LABS: Cholesterol,Body Fluid 30 mg/dL; Fluid Source for Cholesterol PLEURAL FLUID
[2021-01-16] MEDS: 0.9 % Sodium Chloride 1,000 ML IVC SCH (11:18)
[2021-01-16] MEDS: Vancomycin 1,500 MG/265 ML IV.SOLN IVPB SCH (17:18)
[2021-01-16 17:21] LABS: Fluid Source for Albumin L PLEURAL FLUID
[2021-01-16] MEDS: cloNIDine HCL 0.1 MG TABLET PO SCH (19:59)
[2021-01-16] MEDS: traZODone 50 MG TABLET PO SCH (20:01)
[2021-01-16 21:30] LABS: VBG HCO3 20 mEq/L (21-27); VBG PCO2 24 mmHg (41-51); VBG PH 7.54 pH Units (7.32-7.42); VBG PO2 187 mmHg (25-50)
[2021-01-17 00:42] LABS: ABG Base Excess -2 mEq/L (-2 to 3); ABG HCO3 21 mEq/L (21-27); ABG Oxygen Saturation 89 % (95-98); ABG PCO2 30 mmHg (35-45); ABG PH 7.47 pH Units (7.32-7.45); ABG PO2 52 mmHg (85-104); ABG TCO2 22 mEq/L (20-26)
[2021-01-17] MEDS: *HR* HYDROcodone/Acet 5/325 mg TABLET PO PRN ×2 (01:21→08:42)
[2021-01-17 03:16] LABS: Hemoglobin 9.2 g/dL (12.9-16.9); Mean Platelet Volume 11.8 fL (9.4-12.4); Red Cell Distribution Width 16.6 % (11.5-14.5)
[2021-01-17 03:17] LABS: Hematocrit 28.6 % (37.5-50.1); Mean Corpuscular HGB Conc 32.2 g/dL (31.6-35.5); Mean Corpuscular Hemoglobin 30.2 pg (28.0-33.3); Mean Corpuscular Volume 93.8 fL (83.0-100.0); Platelet Count 352 K/mcL (140-400); Red Blood Count 3.05 M/mcL (4.19-5.50); White Blood Count 26.7 K/mcL (4.3-11.1)
[2021-01-17 03:35] LABS: Calcium 7.9 mg/dL (8.6-10.3); Magnesium 2.2 mg/dL (1.6-2.6); Potassium 3.9 mEq/L (3.5-5.1)
[2021-01-17] MEDS: *HR* Heparin 5,000 UNIT/ML VIAL SQ SCH ×3 (05:17→21:17)
[2021-01-17] MEDS: Gabapentin 100 MG CAPSULE PO SCH ×3 (08:29→21:17)
[2021-01-17] MEDS: Aspirin 81 MG TAB.CHEW PO SCH (08:29)
[2021-01-17] MEDS: amLODIPine 5 MG TABLET PO SCH (08:30)
[2021-01-17] MEDS: Insulin LISPRO 300 UNITS/3 ML VIAL SUBQ SCH ×4 (08:30→21:13)
[2021-01-17] MEDS: Insulin DETEMIR 100 UNIT/ML X5UNITS SUBQ SCH ×2 (08:32→21:13)
[2021-01-17] MEDS: 0.9 % Sodium Chloride 1,000 ML IVC SCH (08:33)
[2021-01-17] MEDS: Sennosides/Docusate Sodium TABLET PO SCH ×2 (09:14→21:17)
[2021-01-17] MEDS: Vancomycin 1,500 MG/265 ML IV.SOLN IVPB SCH (17:53)
[2021-01-17] MEDS: cloNIDine HCL 0.1 MG TABLET PO SCH (21:17)
[2021-01-17] MEDS: traZODone 50 MG TABLET PO SCH (23:05)
[2021-01-18] MEDS: Ampicillin/Sulbactam 3,000 MG in 0.9 % Sodium Chloride 100 ML IVPB SCH ×3 (01:44→18:19)
[2021-01-18] MEDS: *HR* HYDROcodone/Acet 5/325 mg TABLET PO PRN ×2 (01:48→15:01)
[2021-01-18 05:00] LABS: Calcium 8.1 mg/dL (8.6-10.3)
[2021-01-18] MEDS: *HR* Heparin 5,000 UNIT/ML VIAL SQ SCH ×3 (05:25→21:18)
[2021-01-18] MEDS: 0.9 % Sodium Chloride 1,000 ML IVC SCH (06:30)
[2021-01-18 06:44] LABS: Mean Platelet Volume 11.5 fL (9.4-12.4); Nucleated Red Blood Cells 0.2 /100 WBC (0)
[2021-01-18 06:46] LABS: Hematocrit 27.8 % (37.5-50.1); Mean Corpuscular HGB Conc 32.4 g/dL (31.6-35.5); Mean Corpuscular Hemoglobin 30.7 pg (28.0-33.3); Mean Corpuscular Volume 94.9 fL (83.0-100.0); Platelet Count 450 K/mcL (140-400); Red Blood Count 2.93 M/mcL (4.19-5.50); Red Cell Distribution Width 16.9 % (11.5-14.5)
[2021-01-18 06:51] LABS: White Blood Count 30.5 K/mcL (4.3-11.1)
[2021-01-18 07:32] LABS: Anisocytosis 1+ (Not Present); Lymphocytes # 3.7 K/mcL (0.6-4.6); Neutrophils # 26.8 K/mcL (1.6-8.9); Platelet Estimate Normal (Normal); Polychromasia 1+ (Not Present); Toxic Granulation Present (Not Present)
[2021-01-18] MEDS: Aspirin 81 MG TAB.CHEW PO SCH (07:47)
[2021-01-18] MEDS: Gabapentin 100 MG CAPSULE PO SCH ×3 (07:48→21:18)
[2021-01-18] MEDS: Sennosides/Docusate Sodium TABLET PO SCH ×2 (07:48→21:18)
[2021-01-18] MEDS: amLODIPine 5 MG TABLET PO SCH (07:48)
[2021-01-18] MEDS: Insulin LISPRO 300 UNITS/3 ML VIAL SUBQ SCH ×4 (08:11→18:33)
[2021-01-18] MEDS: Insulin DETEMIR 100 UNIT/ML X5UNITS SUBQ SCH ×2 (08:12→21:18)
[2021-01-18] MEDS ORDERED: Vancomycin 1 EACH in 0.9 % Sodium Chloride 1 ML IVPB PRN (08:15)
[2021-01-18] MEDS ORDERED: Albumin 25% 25gram/100mL 25 GM/100 ML IV.SOLN IVC SCH (08:45)
[2021-01-18] MEDS ORDERED: *HR* Metoprolol 5 MG/5 ML VIAL IVP PRN (16:30)
[2021-01-18 18:50] LABS: Phosphorous 4.4 mg/dL (2.7-4.5)
[2021-01-18] MEDS: cloNIDine HCL 0.1 MG TABLET PO SCH (21:18)
[2021-01-19] MEDS: *HR* Heparin 5,000 UNIT/ML VIAL SQ SCH ×3 (00:06→21:08)
[2021-01-19] MEDS: 0.9 % Sodium Chloride 1,000 ML IVC SCH (02:52)
[2021-01-19] MEDS: *HR* HYDROcodone/Acet 5/325 mg TABLET PO PRN ×3 (03:46→19:57)
[2021-01-19 04:01] LABS: Basophils # 0.1 K/mcL (0.0-0.2); Basophils % 0.2 %; Eosinophils % 0.2 %; Hematocrit 27.8 % (37.5-50.1); Hemoglobin 8.9 g/dL (12.9-16.9); Immature Granulocytes % 2.6 % (0-4); Lymphocytes # 1.7 K/mcL (0.6-4.6); Lymphocytes % 8.3 %; Mean Corpuscular Hemoglobin 30.5 pg (28.0-33.3); Mean Corpuscular Volume 95.2 fL (83.0-100.0); Mean Platelet Volume 11.5 fL (9.4-12.4); Monocytes # 1.2 K/mcL (0.0-1.3); Monocytes % 5.7 %; Neutrophils # 16.8 K/mcL (1.6-8.9); Nucleated Red Blood Cells 0.1 /100 WBC (0); Platelet Count 472 K/mcL (140-400); Red Blood Count 2.92 M/mcL (4.19-5.50); Red Cell Distribution Width 17.2 % (11.5-14.5); White Blood Count 20.3 K/mcL (4.3-11.1)
[2021-01-19 04:08] LABS: INR 1.2; Prothrombin Time 13.3 Seconds (9.4-12.1)
[2021-01-19 04:18] LABS: Alanine Aminotransferase 22 Units/L (7-52); Albumin 2.6 g/dL (3.5-5.7); Albumin/Globulin Ratio 0.7 (1.1-2.2); Alkaline Phosphatase 106 Units/L (34-104); Aspartate Amino Transferase 18 Units/L (13-39); BUN/Creatinine Ratio 30 (6-26); Bilirubin,Total 0.4 mg/dL (0.3-1.0); Blood Urea Nitrogen 41 mg/dL (8-23); Calcium 8.1 mg/dL (8.6-10.3); Carbon Dioxide 19 mEq/L (23-29); Chloride 117 mEq/L (98-107); Globulin 3.5 g/dL (2.4-3.5); Glucose 262 mg/dL (70-105); Magnesium 2.1 mg/dL (1.6-2.6); Osmolality,Calculated 323 (280-300); Potassium 3.9 mEq/L (3.5-5.1); Sodium 147 mEq/L (136-145); Total Protein 6.1 g/dL (6.4-8.9); eGFR For African Americans > 60 (> 60); eGFR For Non-African Americans 51 (> 60)
[2021-01-19] MEDS: Ampicillin/Sulbactam 3,000 MG in 0.9 % Sodium Chloride 100 ML IVPB SCH ×4 (05:23→23:58)
[2021-01-19] MEDS: Aspirin 81 MG TAB.CHEW PO SCH (09:12)
[2021-01-19] MEDS: Gabapentin 100 MG CAPSULE PO SCH ×3 (09:13→19:57)
[2021-01-19] MEDS: amLODIPine 5 MG TABLET PO SCH (09:13)
[2021-01-19] MEDS: Insulin DETEMIR 100 UNIT/ML X5UNITS SUBQ SCH ×2 (09:13→21:08)
[2021-01-19] MEDS: Insulin LISPRO 300 UNITS/3 ML VIAL SUBQ SCH ×4 (09:14→19:58)
[2021-01-19] MEDS: Sennosides/Docusate Sodium TABLET PO SCH ×2 (09:14→19:57)
[2021-01-19] MEDS ORDERED: *HR* HYDROmorphone 2 MG TABLET PO PRN (10:20)
[2021-01-19] MEDS ORDERED: *HR* OxyCODONE Immed Rel 5 MG TABLET PO PRN (10:20)
[2021-01-19] MEDS ORDERED: *HR* HYDROmorphone (PF) 1 MG/ML SYRINGE IVP PRN (10:20)
[2021-01-19] MEDS ORDERED: Acetaminophen IV 1,000 MG/100 ML BAG IVPB ONE (10:20)
[2021-01-19] MEDS ORDERED: *HR* Labetalol 20 MG/4 ML SYRINGE IVP PRN (10:20)
[2021-01-19] MEDS ORDERED: Famotidine 20 MG/2 ML VIAL IVP ONE (10:20)
[2021-01-19] MEDS ORDERED: *HR* FentaNYL (PF) 100 MCG/2 ML VIAL ONE (10:21)
[2021-01-19] MEDS ORDERED: Ondansetron 4 MG/2 ML VIAL ONE (10:21)
[2021-01-19] MEDS ORDERED: *HR* Succinylcholine 200 MG/10 ML VIAL IVP ONE (10:21)
[2021-01-19] MEDS ORDERED: Lidocaine -MPF 2% 5 ML VIAL ONE (10:21)
[2021-01-19] MEDS ORDERED: *HR* Propofol 200 MG/20 ML VIAL IVP ONE (10:21)
[2021-01-19] MEDS ORDERED: Lidocaine HCL 4 ML Topical Solution (Laryng-O-Jet Kit Sterile Pak) TP ONE (10:21)
[2021-01-19] MEDS ORDERED: *HR* Rocuronium Bromide 50 MG/5 ML VIAL ONE (10:21)
[2021-01-19] MEDS: Ringers Solution, Lactated 1,000 ML IVC SCH (10:58)
[2021-01-19] MEDS ORDERED: *HR* Etomidate 40 MG/20 ML VIAL IVP ONE (11:30)
[2021-01-19] MEDS: *HR* OxyCODONE/APAP 10/325 TABLET PO PRN (13:51)
[2021-01-19 17:26] LABS: Appearance of Body Fluid Hazy (Clear); Volume of Body Fluid 25 mL
[2021-01-19] MEDS: cloNIDine HCL 0.1 MG TABLET PO SCH (19:57)
[2021-01-20] MEDS: 0.9 % Sodium Chloride 1,000 ML IVC SCH ×2 (00:02→23:03)
[2021-01-20] MEDS: *HR* Heparin 5,000 UNIT/ML VIAL SQ SCH ×3 (05:42→20:16)
[2021-01-20] MEDS: Ampicillin/Sulbactam 3,000 MG in 0.9 % Sodium Chloride 100 ML IVPB SCH ×4 (05:42→23:06)
[2021-01-20 05:45] LABS: Basophils % 0.1 %; Hematocrit 26.2 % (37.5-50.1); Hemoglobin 7.9 g/dL (12.9-16.9); Immature Granulocytes % 2.4 % (0-4); Lymphocytes # 1.6 K/mcL (0.6-4.6); Lymphocytes % 10.8 %; Mean Corpuscular HGB Conc 30.2 g/dL (31.6-35.5); Mean Corpuscular Hemoglobin 29.7 pg (28.0-33.3); Mean Corpuscular Volume 98.5 fL (83.0-100.0); Mean Platelet Volume 11.6 fL (9.4-12.4); Monocytes # 1.1 K/mcL (0.0-1.3); Monocytes % 7.6 %; Neutrophils # 11.3 K/mcL (1.6-8.9); Nucleated Red Blood Cells 0.1 /100 WBC (0); Platelet Count 431 K/mcL (140-400); Red Blood Count 2.66 M/mcL (4.19-5.50); Red Cell Distribution Width 17.3 % (11.5-14.5); Segmented Neutrophils % 79.1 %; White Blood Count 14.3 K/mcL (4.3-11.1)
[2021-01-20 06:07] LABS: Potassium 4.1 mEq/L (3.5-5.1)
[2021-01-20] MEDS: *HR* HYDROcodone/Acet 5/325 mg TABLET PO PRN ×3 (06:10→23:03)
[2021-01-20] MEDS: Aspirin 81 MG TAB.CHEW PO SCH (07:51)
[2021-01-20] MEDS: amLODIPine 5 MG TABLET PO SCH (07:51)
[2021-01-20] MEDS: Sennosides/Docusate Sodium TABLET PO SCH ×2 (07:52→20:15)
[2021-01-20] MEDS: Gabapentin 100 MG CAPSULE PO SCH ×3 (07:52→20:15)
[2021-01-20] MEDS: Ringers Solution, Lactated 1,000 ML IVC SCH (07:54)
[2021-01-20] MEDS: Insulin DETEMIR 100 UNIT/ML X5UNITS SUBQ SCH ×2 (07:54→20:16)
[2021-01-20] MEDS: Insulin LISPRO 300 UNITS/3 ML VIAL SUBQ SCH ×4 (08:02→20:16)
[2021-01-20] MEDS: cloNIDine HCL 0.1 MG TABLET PO SCH (20:15)
[2021-01-21] MEDS: *HR* OxyCODONE/APAP 10/325 TABLET PO PRN (02:26)
[2021-01-21] MEDS: Ringers Solution, Lactated 1,000 ML IVC SCH (04:42)
[2021-01-21] MEDS: Ampicillin/Sulbactam 3,000 MG in 0.9 % Sodium Chloride 100 ML IVPB SCH ×4 (05:55→23:58)
[2021-01-21] MEDS: *HR* Heparin 5,000 UNIT/ML VIAL SQ SCH ×3 (05:55→22:48)
[2021-01-21 06:42] LABS: Basophils # 0.1 K/mcL (0.0-0.2); Basophils % 0.3 %; Eosinophils % 0.1 %; Hematocrit 28.5 % (37.5-50.1); Hemoglobin 8.5 g/dL (12.9-16.9); Immature Granulocytes % 2.1 % (0-4); Lymphocytes % 8.4 %; Mean Corpuscular HGB Conc 29.8 g/dL (31.6-35.5); Mean Corpuscular Hemoglobin 29.7 pg (28.0-33.3); Mean Corpuscular Volume 99.7 fL (83.0-100.0); Mean Platelet Volume 11.3 fL (9.4-12.4); Monocytes # 1.8 K/mcL (0.0-1.3); Nucleated Red Blood Cells 0.1 /100 WBC (0); Platelet Count 503 K/mcL (140-400); Red Blood Count 2.86 M/mcL (4.19-5.50); Red Cell Distribution Width 17.7 % (11.5-14.5); Segmented Neutrophils % 81.1 %
[2021-01-21 06:44] LABS: Lymphocytes # 1.9 K/mcL (0.6-4.6); Neutrophils # 17.8 K/mcL (1.6-8.9)
[2021-01-21 06:59] LABS: Potassium 3.7 mEq/L (3.5-5.1)
[2021-01-21] MEDS: Insulin LISPRO 300 UNITS/3 ML VIAL SUBQ SCH ×4 (08:25→20:18)
[2021-01-21] MEDS: Aspirin 81 MG TAB.CHEW PO SCH (08:47)
[2021-01-21] MEDS: Sennosides/Docusate Sodium TABLET PO SCH ×2 (08:47→20:18)
[2021-01-21] MEDS: amLODIPine 5 MG TABLET PO SCH (08:48)
[2021-01-21] MEDS: Insulin DETEMIR 100 UNIT/ML X5UNITS SUBQ SCH ×2 (08:48→20:18)
[2021-01-21] MEDS: Gabapentin 100 MG CAPSULE PO SCH ×3 (08:48→20:18)
[2021-01-21 11:53] LABS: ABG Base Excess -2 mEq/L (-2 to 3); ABG HCO3 22 mEq/L (21-27); ABG Oxygen Saturation 88 % (95-98); ABG PCO2 33 mmHg (35-45); ABG PH 7.42 pH Units (7.32-7.45); ABG PO2 53 mmHg (85-104); ABG TCO2 23 mEq/L (20-26)
[2021-01-21 13:24] LABS: Mucus,Urine Few per lpf (None-Few)
[2021-01-21] MEDS ORDERED: Lidocaine -MPF 2% 5 ML VIAL ONE (15:03)
[2021-01-21] MEDS ORDERED: Lidocaine -MPF 4% 5 ML AMPUL ONE (15:03)
[2021-01-21] MEDS ORDERED: *HR* Succinylcholine 200 MG/10 ML VIAL IVP ONE (15:04)
[2021-01-21] MEDS ORDERED: *HR* Propofol 200 MG/20 ML VIAL IVP ONE (15:04)
[2021-01-21] MEDS ORDERED: EPHEDrine 50 MG/ML VIAL ONE (15:46)
[2021-01-21] MEDS ORDERED: Ondansetron 4 MG/2 ML VIAL ONE (16:03)
[2021-01-21] MEDS ORDERED: *HR* Dextrose 50 % in Water (Vial) 50 ML VIAL ONE (16:42)
[2021-01-21] MEDS ORDERED: *HR* Labetalol 20 MG/4 ML SYRINGE IVP ONE (16:59)
[2021-01-21] MEDS: MethylPREDNISolone 40 MG/ML VIAL IVP SCH (18:08)
[2021-01-21] MEDS: cloNIDine HCL 0.1 MG TABLET PO SCH (20:18)
[2021-01-22] MEDS: *HR* Heparin 5,000 UNIT/ML VIAL SQ SCH ×3 (06:16→23:26)
[2021-01-22] MEDS: Ampicillin/Sulbactam 3,000 MG in 0.9 % Sodium Chloride 100 ML IVPB SCH ×4 (06:16→23:26)
[2021-01-22] MEDS: MethylPREDNISolone 40 MG/ML VIAL IVP SCH ×2 (06:16→17:42)
[2021-01-22 06:34] LABS: Basophils % 0.1 %; Hematocrit 25.8 % (37.5-50.1); Hemoglobin 7.8 g/dL (12.9-16.9); Immature Granulocytes % 1.4 % (0-4); Lymphocytes # 0.8 K/mcL (0.6-4.6); Lymphocytes % 7.3 %; Mean Corpuscular HGB Conc 30.2 g/dL (31.6-35.5); Mean Corpuscular Hemoglobin 29.7 pg (28.0-33.3); Mean Corpuscular Volume 98.1 fL (83.0-100.0); Mean Platelet Volume 11.3 fL (9.4-12.4); Monocytes # 0.2 K/mcL (0.0-1.3); Monocytes % 1.9 %; Neutrophils # 9.9 K/mcL (1.6-8.9); Platelet Count 444 K/mcL (140-400); Red Blood Count 2.63 M/mcL (4.19-5.50); Segmented Neutrophils % 89.3 %; White Blood Count 11.1 K/mcL (4.3-11.1)
[2021-01-22] MEDS: Sennosides/Docusate Sodium TABLET PO SCH ×2 (06:49→19:57)
[2021-01-22 06:53] LABS: BUN/Creatinine Ratio 27 (6-26); Blood Urea Nitrogen 29 mg/dL (8-23); Calcium 7.8 mg/dL (8.6-10.3); Carbon Dioxide 23 mEq/L (23-29); Chloride 109 mEq/L (98-107); Glucose 224 mg/dL (70-105); Osmolality,Calculated 305 (280-300); Potassium 4.2 mEq/L (3.5-5.1); Sodium 141 mEq/L (136-145); eGFR For African Americans > 60 (> 60); eGFR For Non-African Americans > 60 (> 60)
[2021-01-22] MEDS: Insulin DETEMIR 100 UNIT/ML X5UNITS SUBQ SCH ×2 (09:03→19:57)
[2021-01-22] MEDS: amLODIPine 5 MG TABLET PO SCH (09:04)
[2021-01-22] MEDS: Gabapentin 100 MG CAPSULE PO SCH ×3 (09:04→19:56)
[2021-01-22] MEDS: Insulin LISPRO 300 UNITS/3 ML VIAL SUBQ SCH ×4 (09:04→19:57)
[2021-01-22] MEDS: Aspirin 81 MG TAB.CHEW PO SCH (09:04)
[2021-01-22] MEDS: *HR* HYDROcodone/Acet 5/325 mg TABLET PO PRN ×2 (15:37→20:00)
[2021-01-22] MEDS: cloNIDine HCL 0.1 MG TABLET PO SCH (19:57)
[2021-01-22] MEDS: 0.9 % Sodium Chloride 1,000 ML IVC SCH (23:25)
[2021-01-23 03:43] LABS: Hematocrit 24.6 % (37.5-50.1); Hemoglobin 7.6 g/dL (12.9-16.9); Immature Granulocytes % 1.4 % (0-4); Lymphocytes # 0.9 K/mcL (0.6-4.6); Lymphocytes % 9.8 %; Mean Corpuscular HGB Conc 30.9 g/dL (31.6-35.5); Mean Corpuscular Hemoglobin 30.2 pg (28.0-33.3); Mean Corpuscular Volume 97.6 fL (83.0-100.0); Monocytes # 0.4 K/mcL (0.0-1.3); Monocytes % 4.5 %; Neutrophils # 8.1 K/mcL (1.6-8.9); Platelet Count 436 K/mcL (140-400); Red Blood Count 2.52 M/mcL (4.19-5.50); Red Cell Distribution Width 18.2 % (11.5-14.5); Segmented Neutrophils % 84.3 %; White Blood Count 9.6 K/mcL (4.3-11.1)
[2021-01-23 04:01] LABS: BUN/Creatinine Ratio 27 (6-26); Blood Urea Nitrogen 33 mg/dL (8-23); Calcium 7.6 mg/dL (8.6-10.3); Carbon Dioxide 25 mEq/L (23-29); Chloride 110 mEq/L (98-107); Glucose 164 mg/dL (70-105); Osmolality,Calculated 301 (280-300); Potassium 4.1 mEq/L (3.5-5.1); Sodium 140 mEq/L (136-145); eGFR For African Americans > 60 (> 60); eGFR For Non-African Americans 57 (> 60)
[2021-01-23] MEDS: *HR* HYDROcodone/Acet 5/325 mg TABLET PO PRN ×3 (06:14→23:37)
[2021-01-23] MEDS: *HR* Heparin 5,000 UNIT/ML VIAL SQ SCH ×3 (06:14→23:37)
[2021-01-23] MEDS: MethylPREDNISolone 40 MG/ML VIAL IVP SCH (06:14)
[2021-01-23] MEDS: Ampicillin/Sulbactam 3,000 MG in 0.9 % Sodium Chloride 100 ML IVPB SCH ×4 (06:15→23:37)
[2021-01-23] MEDS: Insulin LISPRO 300 UNITS/3 ML VIAL SUBQ SCH ×4 (08:21→19:51)
[2021-01-23] MEDS: Gabapentin 100 MG CAPSULE PO SCH ×3 (08:49→19:47)
[2021-01-23] MEDS: Sennosides/Docusate Sodium TABLET PO SCH ×2 (08:50→19:48)
[2021-01-23] MEDS: Aspirin 81 MG TAB.CHEW PO SCH (08:50)
[2021-01-23] MEDS: amLODIPine 5 MG TABLET PO SCH (08:50)
[2021-01-23] MEDS: Insulin DETEMIR 100 UNIT/ML X5UNITS SUBQ SCH (08:50)
[2021-01-23] MEDS: lisinopriL 10 MG TABLET PO SCH (14:49)
[2021-01-23] MEDS: cloNIDine HCL 0.1 MG TABLET PO SCH (19:48)
[2021-01-23] MEDS: 0.9 % Sodium Chloride 1,000 ML IVC SCH (19:59)
[2021-01-23] MEDS ORDERED: Insulin DETEMIR 100 UNIT/ML X5UNITS SUBQ SCH (21:00)
[2021-01-24 05:50] LABS: Basophils % 0.1 %; Hematocrit 25.6 % (37.5-50.1); Hemoglobin 7.9 g/dL (12.9-16.9); Lymphocytes # 1.9 K/mcL (0.6-4.6); Lymphocytes % 16.5 %; Mean Corpuscular HGB Conc 30.9 g/dL (31.6-35.5); Mean Corpuscular Hemoglobin 30.2 pg (28.0-33.3); Mean Corpuscular Volume 97.7 fL (83.0-100.0); Mean Platelet Volume 11.2 fL (9.4-12.4); Monocytes # 1.1 K/mcL (0.0-1.3); Neutrophils # 8.5 K/mcL (1.6-8.9); Platelet Count 457 K/mcL (140-400); Red Blood Count 2.62 M/mcL (4.19-5.50); Red Cell Distribution Width 18.6 % (11.5-14.5); Segmented Neutrophils % 73.4 %; White Blood Count 11.6 K/mcL (4.3-11.1)
[2021-01-24] MEDS: *HR* Heparin 5,000 UNIT/ML VIAL SQ SCH ×3 (05:51→20:40)
[2021-01-24] MEDS: Ampicillin/Sulbactam 3,000 MG in 0.9 % Sodium Chloride 100 ML IVPB SCH ×4 (05:51→23:50)
[2021-01-24 06:08] LABS: BUN/Creatinine Ratio 28 (6-26); Blood Urea Nitrogen 32 mg/dL (8-23); Calcium 7.7 mg/dL (8.6-10.3); Carbon Dioxide 27 mEq/L (23-29); Chloride 111 mEq/L (98-107); Glucose 55 mg/dL (70-105); Osmolality,Calculated 300 (280-300); Potassium 3.7 mEq/L (3.5-5.1); Sodium 143 mEq/L (136-145); eGFR For African Americans > 60 (> 60); eGFR For Non-African Americans > 60 (> 60)
[2021-01-24] MEDS: Insulin LISPRO 300 UNITS/3 ML VIAL SUBQ SCH ×3 (07:32→17:13)
[2021-01-24] MEDS: lisinopriL 10 MG TABLET PO SCH (07:41)
[2021-01-24] MEDS: amLODIPine 5 MG TABLET PO SCH (07:41)
[2021-01-24] MEDS: Sennosides/Docusate Sodium TABLET PO SCH ×2 (07:42→20:40)
[2021-01-24] MEDS: Aspirin 81 MG TAB.CHEW PO SCH (07:42)
[2021-01-24] MEDS: Gabapentin 100 MG CAPSULE PO SCH ×3 (07:42→20:39)
[2021-01-24] MEDS ORDERED: Insulin DETEMIR 100 UNIT/ML X5UNITS SUBQ SCH (09:00)
[2021-01-24] MEDS ORDERED: predniSONE 20 MG TABLET PO SCH (09:00)
[2021-01-24] MEDS: predniSONE 20 MG TABLET PO SCH (09:45)
[2021-01-24 09:58] LABS: Magnesium 1.8 mg/dL (1.6-2.6)
[2021-01-24 13:09] LABS: Magnesium 1.7 mg/dL (1.6-2.6); Phosphorous 1.8 mg/dL (2.7-4.5)
[2021-01-24] MEDS: *HR* HYDROcodone/Acet 5/325 mg TABLET PO PRN (20:39)
[2021-01-24] MEDS: Insulin DETEMIR 100 UNIT/ML X5UNITS SUBQ SCH (20:40)
[2021-01-24] MEDS: cloNIDine HCL 0.1 MG TABLET PO SCH (20:40)
[2021-01-25] MEDS: *HR* Heparin 5,000 UNIT/ML VIAL SQ SCH ×3 (05:11→21:46)
[2021-01-25] MEDS: Ampicillin/Sulbactam 3,000 MG in 0.9 % Sodium Chloride 100 ML IVPB SCH (05:11)
[2021-01-25 05:44] LABS: Basophils % 0.1 %; Eosinophils % 0.1 %; Hematocrit 24.2 % (37.5-50.1); Hemoglobin 7.6 g/dL (12.9-16.9); Immature Granulocytes % 1.5 % (0-4); Lymphocytes % 15.8 %; Mean Corpuscular HGB Conc 31.4 g/dL (31.6-35.5); Mean Corpuscular Hemoglobin 30.2 pg (28.0-33.3); Mean Platelet Volume 11.6 fL (9.4-12.4); Monocytes # 1.2 K/mcL (0.0-1.3); Monocytes % 9.9 %; Platelet Count 390 K/mcL (140-400); Red Blood Count 2.52 M/mcL (4.19-5.50); Red Cell Distribution Width 18.6 % (11.5-14.5); Segmented Neutrophils % 72.6 %; White Blood Count 12.3 K/mcL (4.3-11.1)
[2021-01-25 05:56] LABS: BUN/Creatinine Ratio 30 (6-26); Blood Urea Nitrogen 29 mg/dL (8-23); Calcium 7.5 mg/dL (8.6-10.3); Carbon Dioxide 28 mEq/L (23-29); Chloride 109 mEq/L (98-107); Glucose 199 mg/dL (70-105); Osmolality,Calculated 305 (280-300); Potassium 3.9 mEq/L (3.5-5.1); Sodium 142 mEq/L (136-145); eGFR For African Americans > 60 (> 60); eGFR For Non-African Americans > 60 (> 60)
[2021-01-25] MEDS: Insulin LISPRO 300 UNITS/3 ML VIAL SUBQ SCH ×3 (07:16→15:48)
[2021-01-25] MEDS: Aspirin 81 MG TAB.CHEW PO SCH (07:17)
[2021-01-25] MEDS: Gabapentin 100 MG CAPSULE PO SCH ×3 (07:17→21:37)
[2021-01-25] MEDS: lisinopriL 10 MG TABLET PO SCH (07:17)
[2021-01-25] MEDS: predniSONE 20 MG TABLET PO SCH (07:17)
[2021-01-25] MEDS: amLODIPine 5 MG TABLET PO SCH (07:17)
[2021-01-25] MEDS: Sennosides/Docusate Sodium TABLET PO SCH (07:18)
[2021-01-25] MEDS: Insulin DETEMIR 100 UNIT/ML X5UNITS SUBQ SCH ×2 (08:49→21:38)
[2021-01-25] MEDS: Metoprolol XL (24 HR) Succ 50 MG TAB.ER.24H PO SCH (08:49)
[2021-01-25] MEDS: cefTRIAXone 2,000 MG in Water for inj. (sterile) 20 ML IVP SCH (09:38)
[2021-01-25] MEDS: *HR* HYDROcodone/Acet 5/325 mg TABLET PO PRN (21:38)
[2021-01-25] MEDS: cloNIDine HCL 0.1 MG TABLET PO SCH (21:38)
[2021-01-26 04:55] LABS: Basophils % 0.1 %; Eosinophils % 0.3 %; Hematocrit 26.3 % (37.5-50.1); Hemoglobin 8.2 g/dL (12.9-16.9); Immature Granulocytes % 0.9 % (0-4); Lymphocytes # 2.1 K/mcL (0.6-4.6); Mean Corpuscular HGB Conc 31.2 g/dL (31.6-35.5); Mean Corpuscular Hemoglobin 30.3 pg (28.0-33.3); Mean Platelet Volume 11.8 fL (9.4-12.4); Monocytes # 1.1 K/mcL (0.0-1.3); Neutrophils # 8.4 K/mcL (1.6-8.9); Nucleated Red Blood Cells 0.2 /100 WBC (0); Platelet Count 373 K/mcL (140-400); Red Blood Count 2.71 M/mcL (4.19-5.50); Red Cell Distribution Width 19.1 % (11.5-14.5); Segmented Neutrophils % 71.7 %; White Blood Count 11.7 K/mcL (4.3-11.1)
[2021-01-26 05:06] LABS: BUN/Creatinine Ratio 28 (6-26); Blood Urea Nitrogen 31 mg/dL (8-23); Calcium 7.6 mg/dL (8.6-10.3); Carbon Dioxide 27 mEq/L (23-29); Chloride 108 mEq/L (98-107); Glucose 81 mg/dL (70-105); Osmolality,Calculated 300 (280-300); Potassium 3.7 mEq/L (3.5-5.1); Sodium 142 mEq/L (136-145); eGFR For African Americans > 60 (> 60); eGFR For Non-African Americans > 60 (> 60)
[2021-01-26] MEDS: *HR* Heparin 5,000 UNIT/ML VIAL SQ SCH ×3 (06:08→20:30)
[2021-01-26] MEDS: Insulin LISPRO 300 UNITS/3 ML VIAL SUBQ SCH ×3 (09:45→17:17)
[2021-01-26] MEDS: Insulin DETEMIR 100 UNIT/ML X5UNITS SUBQ SCH ×2 (09:46→20:30)
[2021-01-26] MEDS: *HR* HYDROcodone/Acet 5/325 mg TABLET PO PRN (09:50)
[2021-01-26] MEDS: predniSONE 20 MG TABLET PO SCH (09:50)
[2021-01-26] MEDS: amLODIPine 5 MG TABLET PO SCH (09:50)
[2021-01-26] MEDS: Aspirin 81 MG TAB.CHEW PO SCH (09:51)
[2021-01-26] MEDS: Metoprolol XL (24 HR) Succ 50 MG TAB.ER.24H PO SCH (09:51)
[2021-01-26] MEDS: Gabapentin 100 MG CAPSULE PO SCH ×3 (09:51→20:30)
[2021-01-26] MEDS: Sennosides/Docusate Sodium TABLET PO SCH ×3 (09:51→20:29)
[2021-01-26] MEDS: lisinopriL 10 MG TABLET PO SCH (09:51)
[2021-01-26] MEDS: cefTRIAXone 2,000 MG in Water for inj. (sterile) 20 ML IVP SCH (09:52)
[2021-01-26] MEDS: cloNIDine HCL 0.1 MG TABLET PO SCH (20:30)
[2021-01-26] MEDS: traZODone 50 MG TABLET PO SCH (20:30)
[2021-01-27] MEDS: *HR* Heparin 5,000 UNIT/ML VIAL SQ SCH ×3 (05:55→20:53)
[2021-01-27] MEDS: Insulin LISPRO 300 UNITS/3 ML VIAL SUBQ SCH ×3 (08:01→18:12)
[2021-01-27] MEDS: lisinopriL 10 MG TABLET PO SCH (08:40)
[2021-01-27] MEDS: Sennosides/Docusate Sodium TABLET PO SCH ×2 (08:40→22:24)
[2021-01-27] MEDS: amLODIPine 5 MG TABLET PO SCH (08:41)
[2021-01-27] MEDS: Gabapentin 100 MG CAPSULE PO SCH ×3 (08:41→20:52)
[2021-01-27] MEDS: predniSONE 20 MG TABLET PO SCH (08:42)
[2021-01-27] MEDS: Metoprolol XL (24 HR) Succ 50 MG TAB.ER.24H PO SCH (08:42)
[2021-01-27] MEDS: cefTRIAXone 2,000 MG in Water for inj. (sterile) 20 ML IVP SCH (08:42)
[2021-01-27] MEDS: Aspirin 81 MG TAB.CHEW PO SCH (08:42)
[2021-01-27] MEDS: Insulin DETEMIR 100 UNIT/ML X5UNITS SUBQ SCH ×2 (08:53→20:53)
[2021-01-27 11:59] LABS: Basophils % 0.1 %; Eosinophils % 0.2 %; Hematocrit 27.2 % (37.5-50.1); Hemoglobin 8.6 g/dL (12.9-16.9); Immature Granulocytes % 0.7 % (0-4); Lymphocytes # 1.2 K/mcL (0.6-4.6); Mean Corpuscular HGB Conc 31.6 g/dL (31.6-35.5); Mean Corpuscular Hemoglobin 31.6 pg (28.0-33.3); Mean Platelet Volume 12.3 fL (9.4-12.4); Monocytes # 0.9 K/mcL (0.0-1.3); Monocytes % 6.5 %; Neutrophils # 11.2 K/mcL (1.6-8.9); Platelet Count 331 K/mcL (140-400); Red Blood Count 2.72 M/mcL (4.19-5.50); Red Cell Distribution Width 19.3 % (11.5-14.5); Segmented Neutrophils % 83.5 %; White Blood Count 13.4 K/mcL (4.3-11.1)
[2021-01-27 12:46] LABS: BUN/Creatinine Ratio 29 (6-26); Blood Urea Nitrogen 34 mg/dL (8-23); Calcium 7.7 mg/dL (8.6-10.3); Carbon Dioxide 27 mEq/L (23-29); Chloride 106 mEq/L (98-107); Glucose 227 mg/dL (70-105); Magnesium 1.8 mg/dL (1.6-2.6); Osmolality,Calculated 307 (280-300); Phosphorous 2.3 mg/dL (2.7-4.5); Sodium 141 mEq/L (136-145); eGFR For African Americans > 60 (> 60); eGFR For Non-African Americans > 60 (> 60)
[2021-01-27] MEDS: *HR* HYDROcodone/Acet 5/325 mg TABLET PO PRN (20:52)
[2021-01-27] MEDS: traZODone 50 MG TABLET PO SCH (20:52)
[2021-01-27] MEDS: cloNIDine HCL 0.1 MG TABLET PO SCH (20:53)
[2021-01-28] MEDS: *HR* Heparin 5,000 UNIT/ML VIAL SQ SCH ×2 (05:54→13:47)
[2021-01-28] MEDS: Insulin LISPRO 300 UNITS/3 ML VIAL SUBQ SCH ×2 (08:17→11:36)
[2021-01-28] MEDS: Insulin DETEMIR 100 UNIT/ML X5UNITS SUBQ SCH (08:21)
[2021-01-28] MEDS: lisinopriL 10 MG TABLET PO SCH (08:42)
[2021-01-28] MEDS: predniSONE 20 MG TABLET PO SCH (08:42)
[2021-01-28] MEDS: Gabapentin 100 MG CAPSULE PO SCH ×2 (08:42→13:47)
[2021-01-28] MEDS: Metoprolol XL (24 HR) Succ 50 MG TAB.ER.24H PO SCH (08:43)
[2021-01-28] MEDS: Sennosides/Docusate Sodium TABLET PO SCH (08:44)
[2021-01-28] MEDS: amLODIPine 5 MG TABLET PO SCH (08:44)
[2021-01-28] MEDS: cefTRIAXone 2,000 MG in Water for inj. (sterile) 20 ML IVP SCH (08:44)
[2021-01-28] MEDS: Aspirin 81 MG TAB.CHEW PO SCH (08:53)
[2021-01-28 11:27] VITALS: BP 122/75; PULSE 67; TEMP 97.7; O2SAT 99
== END 2021-01-28 15:03 | disposition home health service (06) | DRG 710 ==
LOC: 2NNU → SUATTDRO 04:05
PROVIDERS: ADMIT Internal Medicine; ATTEND Internal Medicine

== ENCOUNTER 2021-08-05 16:10 | Inpatient (IN) ==
[2021-08-05 16:37] LABS: Basophils # 0.1 K/mcL (0.0-0.2); Basophils % 1.1 %; Eosinophils # 0.1 K/mcL (0.0-0.6); Eosinophils % 0.7 %; Hematocrit 38.1 % (37.5-50.1); Hemoglobin 12.6 g/dL (12.9-16.9); Immature Granulocytes % 0.6 % (0-4); Lymphocytes # 2.2 K/mcL (0.6-4.6); Lymphocytes % 20.7 %; Mean Corpuscular HGB Conc 33.1 g/dL (31.6-35.5); Mean Corpuscular Hemoglobin 30.8 pg (28.0-33.3); Mean Corpuscular Volume 93.2 fL (83.0-100.0); Mean Platelet Volume 11.2 fL (9.4-12.4); Monocytes # 0.9 K/mcL (0.0-1.3); Monocytes % 8.8 %; Neutrophils # 7.3 K/mcL (1.6-8.9); Platelet Count 269 K/mcL (140-400); Red Blood Count 4.09 M/mcL (4.19-5.50); Red Cell Distribution Width 13.5 % (11.5-14.5); Segmented Neutrophils % 68.1 %; White Blood Count 10.7 K/mcL (4.3-11.1)
[2021-08-05 16:48] LABS: Activated Partial Thrombo Time 30.7 Seconds (26.0-36.0)
[2021-08-05 17:10] LABS: Calcium 9.1 mg/dL (8.6-10.3); Potassium 4.2 mEq/L (3.5-5.1); Troponin I 0.04 ng/mL (< 0.04)
[2021-08-05] MEDS ORDERED: *HR* HYDROmorphone (PF) 1 MG/ML SYRINGE IVP ONE (18:08)
[2021-08-05] MEDS ORDERED: Isovue-370 500 ML BOTTLE IVP ONE (18:32)
[2021-08-05] MEDS ORDERED: cefTRIAXone 2,000 MG in 0.9 % Sodium Chloride Mini Bag 100 ML IVPB ONE (20:31)
[2021-08-05] MEDS ORDERED: *HR* Heparin 5,000 UNIT/ML VIAL IVP ONE (20:48)
[2021-08-05] MEDS ORDERED: *HR* Heparin 5,000 UNIT/ML VIAL IVP PRN ×2 (20:48)
[2021-08-05] MEDS: Heparin 25,000UNIT/250ML 1/2NS 25,000 UNIT/250 ML IV.SOLN IVC SCH (21:33)
[2021-08-05] MEDS ORDERED: Acetaminophen 325 MG TABLET PO PRN (22:11)
[2021-08-05] MEDS ORDERED: Naloxone 0.4 MG/ML INJ IVP PRN (22:11)
[2021-08-05] MEDS ORDERED: Melatonin 3 MG TABLET PO PRN (22:11)
[2021-08-05] MEDS ORDERED: Ondansetron 4 MG/2 ML VIAL IVP PRN (22:11)
[2021-08-05] MEDS ORDERED: *HR* Dextrose 50 % in Water (Syg) 50 ML SYRINGE IVP PRN (23:01)
[2021-08-05] MEDS ORDERED: Dextrose Gel 15 GM/37.5 ML TUBE PO PRN ×2 (23:01)
[2021-08-05] MEDS ORDERED: D5% in Water 1,000 ML IVC PRN (23:01)
[2021-08-06] MEDS: Insulin LISPRO 300 UNITS/3 ML VIAL SUBQ SCH ×4 (00:03→17:46)
[2021-08-06 04:38] LABS: Basophils # 0.2 K/mcL (0.0-0.2); Basophils % 1.3 %; Eosinophils # 0.2 K/mcL (0.0-0.6); Eosinophils % 1.5 %; Hematocrit 39.9 % (37.5-50.1); Hemoglobin 13.1 g/dL (12.9-16.9); Immature Granulocytes % 0.5 % (0-4); Lymphocytes % 35.3 %; Mean Corpuscular HGB Conc 32.8 g/dL (31.6-35.5); Mean Corpuscular Hemoglobin 30.5 pg (28.0-33.3); Mean Corpuscular Volume 92.8 fL (83.0-100.0); Mean Platelet Volume 11.5 fL (9.4-12.4); Monocytes # 0.9 K/mcL (0.0-1.3); Monocytes % 7.7 %; Neutrophils # 6.1 K/mcL (1.6-8.9); Platelet Count 267 K/mcL (140-400); Red Cell Distribution Width 13.5 % (11.5-14.5); Segmented Neutrophils % 53.7 %; White Blood Count 11.4 K/mcL (4.3-11.1)
[2021-08-06 04:45] LABS: Alanine Aminotransferase 16 Units/L (7-52); Albumin 3.9 g/dL (3.5-5.7); Albumin/Globulin Ratio 1.1 (1.1-2.2); Alkaline Phosphatase 70 Units/L (34-104); Aspartate Amino Transferase 23 Units/L (13-39); BUN/Creatinine Ratio 22 (6-26); Bilirubin,Total 0.3 mg/dL (0.3-1.0); Blood Urea Nitrogen 29 mg/dL (8-23); Calcium 9.3 mg/dL (8.6-10.3); Carbon Dioxide 23 mEq/L (23-29); Chloride 108 mEq/L (98-107); Globulin 3.4 g/dL (2.4-3.5); Glucose 188 mg/dL (70-105); Magnesium 1.9 mg/dL (1.6-2.6); Osmolality,Calculated 301 (280-300); Phosphorous 3.4 mg/dL (2.7-4.5); Potassium 4.1 mEq/L (3.5-5.1); Sodium 140 mEq/L (136-145); Total Protein 7.3 g/dL (6.4-8.9); eGFR For African Americans > 60 (> 60); eGFR For Non-African Americans 54 (> 60)
[2021-08-06] MEDS ORDERED: OLOPATADINE HCL OP PRN (07:32)
[2021-08-06] MEDS: Metoprolol XL (24 HR) Succ 50 MG TAB.ER.24H PO SCH (09:57)
[2021-08-06] MEDS: Cholecalciferol (D-3) 1,000 UNIT (25MCG) TABLET PO SCH (09:57)
[2021-08-06] MEDS: Ascorbic Acid 500 MG TABLET PO SCH (09:57)
[2021-08-06] MEDS: Aspirin 81 MG TAB.CHEW PO SCH (09:58)
[2021-08-06] MEDS: amLODIPine 5 MG TABLET PO SCH (09:58)
[2021-08-06] MEDS: cloNIDine HCL 0.1 MG TABLET PO SCH (20:19)
[2021-08-06] MEDS: Heparin 25,000UNIT/250ML 1/2NS 25,000 UNIT/250 ML IV.SOLN IVC SCH (22:46)
[2021-08-07] MEDS: Insulin LISPRO 300 UNITS/3 ML VIAL SUBQ SCH ×5 (01:47→23:39)
[2021-08-07 03:14] LABS: Basophils # 0.1 K/mcL (0.0-0.2); Basophils % 1.2 %; Eosinophils # 0.3 K/mcL (0.0-0.6); Eosinophils % 2.9 %; Hematocrit 37.3 % (37.5-50.1); Hemoglobin 12.5 g/dL (12.9-16.9); Immature Granulocytes % 0.4 % (0-4); Lymphocytes # 3.2 K/mcL (0.6-4.6); Lymphocytes % 32.7 %; Mean Corpuscular HGB Conc 33.5 g/dL (31.6-35.5); Mean Corpuscular Hemoglobin 31.3 pg (28.0-33.3); Mean Corpuscular Volume 93.5 fL (83.0-100.0); Mean Platelet Volume 11.4 fL (9.4-12.4); Monocytes % 10.2 %; Neutrophils # 5.1 K/mcL (1.6-8.9); Platelet Count 260 K/mcL (140-400); Red Blood Count 3.99 M/mcL (4.19-5.50); Red Cell Distribution Width 13.7 % (11.5-14.5); Segmented Neutrophils % 52.6 %; White Blood Count 9.7 K/mcL (4.3-11.1)
[2021-08-07 03:36] LABS: Calcium 9.2 mg/dL (8.6-10.3); Magnesium 1.9 mg/dL (1.6-2.6); Phosphorous 3.7 mg/dL (2.7-4.5); Potassium 4.4 mEq/L (3.5-5.1)
[2021-08-07] MEDS: Metoprolol XL (24 HR) Succ 50 MG TAB.ER.24H PO SCH (08:50)
[2021-08-07] MEDS: Ascorbic Acid 500 MG TABLET PO SCH (08:51)
[2021-08-07] MEDS: Aspirin 81 MG TAB.CHEW PO SCH (08:51)
[2021-08-07] MEDS: amLODIPine 5 MG TABLET PO SCH (08:51)
[2021-08-07] MEDS: Cholecalciferol (D-3) 1,000 UNIT (25MCG) TABLET PO SCH (08:51)
[2021-08-07] MEDS: cloNIDine HCL 0.1 MG TABLET PO SCH (19:51)
[2021-08-08] MEDS: Heparin 25,000UNIT/250ML 1/2NS 25,000 UNIT/250 ML IV.SOLN IVC SCH (01:18)
[2021-08-08] MEDS: Insulin LISPRO 300 UNITS/3 ML VIAL SUBQ SCH (06:46)
[2021-08-08] MEDS ORDERED: Famotidine 20 MG TABLET PO SCH (09:00)
[2021-08-08] MEDS ORDERED: Magnesium Oxide 400 MG TABLET PO SCH (09:00)
[2021-08-08] MEDS: Cholecalciferol (D-3) 1,000 UNIT (25MCG) TABLET PO SCH (09:12)
[2021-08-08] MEDS: amLODIPine 5 MG TABLET PO SCH (09:12)
[2021-08-08] MEDS: Metoprolol XL (24 HR) Succ 50 MG TAB.ER.24H PO SCH (09:12)
[2021-08-08] MEDS: Ascorbic Acid 500 MG TABLET PO SCH (09:13)
[2021-08-08] MEDS: Aspirin 81 MG TAB.CHEW PO SCH (09:13)
[2021-08-08] MEDS ORDERED: *HR* Rivaroxaban 15 MG TABLET PO SCH (10:30)
[2021-08-08 11:09] VITALS: BP 154/73; PULSE 82; TEMP 98.1; O2SAT 95
== END 2021-08-08 11:58 | disposition home or self-care (01) | DRG 134 ==
LOC: EMEROOARM 16:10 → 3NENU 16:10 → SUATTDRO 21:31 → 3NENU 21:56
PROVIDERS: ADMIT Internal Medicine; ATTEND Internal Medicine

== ENCOUNTER 2021-11-02 00:40 | Inpatient (IN) ==
[2021-11-02] MEDS ORDERED: Naloxone 0.4 MG/ML INJ IVP PRN (03:35)
[2021-11-02 05:24] LABS: Basophils % 0.2 %; Red Blood Count 2.23 M/mcL (4.19-5.50); Red Cell Distribution Width 14.9 % (11.5-14.5)
[2021-11-02 05:25] LABS: Hematocrit 19.1 % (37.5-50.1); Immature Granulocytes % 2.5 % (0-4); Lymphocytes # 1.4 K/mcL (0.6-4.6); Lymphocytes % 27.2 %; Mean Corpuscular HGB Conc 30.4 g/dL (31.6-35.5); Mean Corpuscular Volume 85.7 fL (83.0-100.0); Monocytes # 0.3 K/mcL (0.0-1.3); Monocytes % 5.7 %; Neutrophils # 3.4 K/mcL (1.6-8.9); Platelet Count 262 K/mcL (140-400); Segmented Neutrophils % 64.4 %; White Blood Count 5.2 K/mcL (4.3-11.1)
[2021-11-02 05:28] LABS: Hemoglobin 5.8 g/dL (12.9-16.9)
[2021-11-02] MEDS ORDERED: methylPREDNISolone 125 MG/2 ML VIAL IVP ONE (05:28)
[2021-11-02 05:30] LABS: INR 2.4; Prothrombin Time 26.4 Seconds (9.4-12.1)
[2021-11-02] MEDS ORDERED: Dextrose Gel 15 GM/37.5 ML TUBE PO PRN ×2 (05:30)
[2021-11-02] MEDS ORDERED: D5% in Water 1,000 ML IVC PRN (05:30)
[2021-11-02] MEDS ORDERED: *HR* Dextrose 50 % in Water (Syg) 50 ML SYRINGE IVP PRN (05:30)
[2021-11-02] MEDS ORDERED: 0.9 % Sodium Chloride 500 ML IVC ONE (05:31)
[2021-11-02 06:30] LABS: Alanine Aminotransferase 28 Units/L (7-52); Albumin 3.1 g/dL (3.5-5.7); Albumin/Globulin Ratio 1.1 (1.1-2.2); Alkaline Phosphatase 62 Units/L (34-104); Aspartate Amino Transferase 8 Units/L (13-39); Bilirubin,Total 0.2 mg/dL (0.3-1.0); Blood Urea Nitrogen > 130 mg/dL (8-23); Calcium 8.3 mg/dL (8.6-10.3); Carbon Dioxide 17 mEq/L (23-29); Chloride 113 mEq/L (98-107); Globulin 2.7 g/dL (2.4-3.5); Glucose 106 mg/dL (70-105); Potassium 4.3 mEq/L (3.5-5.1); Sodium 139 mEq/L (136-145); Total Protein 5.8 g/dL (6.4-8.9)
[2021-11-02] MEDS ORDERED: 0.9 % Sodium Chloride 1,000 ML IVC SCH (06:30)
[2021-11-02] MEDS: Pantoprazole 40 MG VIAL IVP SCH ×2 (06:54→19:16)
[2021-11-02] MEDS: Insulin LISPRO 300 UNITS/3 ML VIAL SUBQ SCH ×3 (06:55→19:16)
[2021-11-02] MEDS: Insulin DETEMIR 100 UNIT/ML X5UNITS SUBQ SCH ×2 (08:32→21:30)
[2021-11-02 09:23] LABS: Hematocrit 22.1 % (37.5-50.1); Hemoglobin 6.9 g/dL (12.9-16.9)
[2021-11-02 10:09] LABS: Bilirubin,Urine Negative (Negative); Blood,Urine Negative (Negative); Clarity,Urine Clear (Clear); Color,Urine Colorless (Yellow); Glucose,Urine (UA) Normal (Normal); Ketones,Urine Negative (Negative); Leukocyte Esterase,Urine Negative (Negative); Nitrite,Urine Negative (Negative); PH,Urine 5.5 pH Units (5.0-8.0); Protein,Urine Negative (Neg-Trace); Specific Gravity,Urine 1.015 (1.010-1.025); Urobilinogen,Urine Normal (Normal)
[2021-11-02 13:53] LABS: Hematocrit 25.7 % (37.5-50.1); Hemoglobin 8.1 g/dL (12.9-16.9)
[2021-11-02] MEDS: Ringers Solution, Lactated 1,000 ML IVC SCH ×2 (14:10→15:00)
[2021-11-02] MEDS ORDERED: Remdesivir 200 MG in 0.9 % Sodium Chloride 100 ML IVPB ONE (17:41)
[2021-11-02 19:08] LABS: Magnesium 2.2 mg/dL (1.6-2.6); Potassium 5.1 mEq/L (3.5-5.1)
[2021-11-02 21:47] LABS: Hematocrit 21.8 % (37.5-50.1); Hemoglobin 7.2 g/dL (12.9-16.9)
[2021-11-03] MEDS: Insulin LISPRO 300 UNITS/3 ML VIAL SUBQ SCH ×6 (00:36→21:04)
[2021-11-03] MEDS: Pantoprazole 40 MG VIAL IVP SCH ×2 (05:19→17:00)
[2021-11-03 05:39] LABS: Basophils % 0.7 %; Eosinophils # 0.1 K/mcL (0.0-0.6); Hematocrit 22.5 % (37.5-50.1); Hemoglobin 7.3 g/dL (12.9-16.9); Immature Granulocytes % 2.2 % (0-4); Lymphocytes # 2.1 K/mcL (0.6-4.6); Lymphocytes % 36.9 %; Mean Corpuscular HGB Conc 32.4 g/dL (31.6-35.5); Mean Corpuscular Hemoglobin 27.1 pg (28.0-33.3); Mean Corpuscular Volume 83.6 fL (83.0-100.0); Mean Platelet Volume 11.8 fL (9.4-12.4); Monocytes # 0.5 K/mcL (0.0-1.3); Monocytes % 8.6 %; Neutrophils # 2.9 K/mcL (1.6-8.9); Platelet Count 237 K/mcL (140-400); Red Blood Count 2.69 M/mcL (4.19-5.50); Red Cell Distribution Width 14.8 % (11.5-14.5); Segmented Neutrophils % 50.6 %; White Blood Count 5.8 K/mcL (4.3-11.1)
[2021-11-03 05:56] LABS: Albumin/Globulin Ratio 1.2 (1.1-2.2); Bilirubin,Total 0.3 mg/dL (0.3-1.0); Calcium 8.5 mg/dL (8.6-10.3); Globulin 2.6 g/dL (2.4-3.5); Potassium 4.9 mEq/L (3.5-5.1); Total Protein 5.6 g/dL (6.4-8.9)
[2021-11-03] MEDS: Insulin DETEMIR 100 UNIT/ML X5UNITS SUBQ SCH ×2 (08:00→21:13)
[2021-11-03] MEDS ORDERED: *HR* Propofol 200 MG/20 ML VIAL IVP ONE (10:15)
[2021-11-03] MEDS ORDERED: Lidocaine -MPF 2% 5 ML VIAL ONE (10:22)
[2021-11-03] MEDS ORDERED: Simethicone 40 MG/0.6 ML MLS IR ONE (10:24)
[2021-11-03] MEDS: Ondansetron 4 MG/2 ML VIAL IVP PRN (16:25)
[2021-11-03] MEDS ORDERED: Remdesivir 100 MG in 0.9 % Sodium Chloride 100 ML IVPB SCH (18:00)
[2021-11-03] MEDS ORDERED: Levothyroxine Sodium 100 MCG VIAL IVP SCH (18:30)
[2021-11-04] MEDS: Ondansetron 4 MG/2 ML VIAL IVP PRN (00:17)
[2021-11-04 03:22] LABS: Basophils % 0.4 %; Eosinophils % 0.2 %; Hematocrit 22.5 % (37.5-50.1); Hemoglobin 7.2 g/dL (12.9-16.9); Immature Granulocytes % 2.2 % (0-4); Lymphocytes # 1.7 K/mcL (0.6-4.6); Lymphocytes % 18.1 %; Mean Corpuscular Hemoglobin 27.7 pg (28.0-33.3); Mean Corpuscular Volume 86.5 fL (83.0-100.0); Mean Platelet Volume 11.5 fL (9.4-12.4); Monocytes # 0.6 K/mcL (0.0-1.3); Monocytes % 6.5 %; Neutrophils # 6.6 K/mcL (1.6-8.9); Nucleated Red Blood Cells 0.2 /100 WBC (0); Platelet Count 276 K/mcL (140-400); Segmented Neutrophils % 72.6 %; White Blood Count 9.1 K/mcL (4.3-11.1)
[2021-11-04 03:33] LABS: INR 1.1; Prothrombin Time 12.6 Seconds (9.4-12.1)
[2021-11-04 03:40] LABS: Calcium 8.8 mg/dL (8.6-10.3); Potassium 4.4 mEq/L (3.5-5.1)
[2021-11-04] MEDS: Pantoprazole 40 MG VIAL IVP SCH ×2 (04:30→18:31)
[2021-11-04] MEDS ORDERED: Albuterol 2.5 MG/3 ML NEBULIZER IH PRN (08:25)
[2021-11-04] MEDS ORDERED: *HR* Propofol 200 MG/20 ML VIAL IVP ONE (11:42)
[2021-11-04] MEDS ORDERED: *HR* FentaNYL (PF) 100 MCG/2 ML VIAL ONE (11:42)
[2021-11-04] MEDS ORDERED: Ondansetron 4 MG/2 ML VIAL ONE (11:47)
[2021-11-04] MEDS ORDERED: Lidocaine HCL 4 ML Topical Solution (Laryng-O-Jet Kit Sterile Pak) TP ONE (11:47)
[2021-11-04] MEDS ORDERED: *HR* Succinylcholine 200 MG/10 ML VIAL IVP ONE (11:47)
[2021-11-04] MEDS ORDERED: EPHEDrine 50 MG/ML VIAL ONE (11:59)
[2021-11-04] MEDS ORDERED: Ringers Solution, Lactated 1,000 ML ONE (12:39)
[2021-11-04] MEDS ORDERED: OLOPATADINE HCL OP PRN (15:53)
[2021-11-04] MEDS ORDERED: Acetaminophen IV 500 MG/50 ML BAG IVPB ONE (17:44)
[2021-11-04] MEDS: Acetaminophen 325 MG TABLET PO PRN (18:31)
[2021-11-04] MEDS ORDERED: cloNIDine HCL 0.1 MG TABLET PO SCH (21:00)
[2021-11-04] MEDS: Insulin LISPRO 300 UNITS/3 ML VIAL SUBQ SCH ×2 (21:49→21:53)
[2021-11-04] MEDS: Insulin DETEMIR 100 UNIT/ML X5UNITS SUBQ SCH (21:55)
[2021-11-05 00:56] LABS: Hematocrit 19.6 % (37.5-50.1); Hemoglobin 6.2 g/dL (12.9-16.9); Mean Corpuscular HGB Conc 31.6 g/dL (31.6-35.5); Mean Corpuscular Hemoglobin 28.3 pg (28.0-33.3); Mean Corpuscular Volume 89.5 fL (83.0-100.0); Red Blood Count 2.19 M/mcL (4.19-5.50)
[2021-11-05 00:57] LABS: Lymphocytes # 0.9 K/mcL (0.6-4.6); Mean Platelet Volume 11.7 fL (9.4-12.4); Platelet Count 230 K/mcL (140-400); Red Cell Distribution Width 15.7 % (11.5-14.5)
[2021-11-05 01:17] LABS: White Blood Count 47.2 K/mcL (4.3-11.1)
[2021-11-05 01:18] LABS: Neutrophils # 46.3 K/mcL (1.6-8.9); Platelet Estimate Normal (Normal)
[2021-11-05] MEDS ORDERED: 0.9 % Sodium Chloride 250 ML ONE (01:34)
[2021-11-05 01:38] LABS: Calcium 8.1 mg/dL (8.6-10.3); Potassium 5.6 mEq/L (3.5-5.1)
[2021-11-05 02:08] LABS: Basophils # 0.1 K/mcL (0.0-0.2); Basophils % 0.2 %; Hematocrit 21.3 % (37.5-50.1); Hemoglobin 6.7 g/dL (12.9-16.9); Immature Granulocytes % 4.1 % (0-4); Lymphocytes % 2.3 %; Mean Corpuscular HGB Conc 31.5 g/dL (31.6-35.5); Mean Corpuscular Volume 89.1 fL (83.0-100.0); Monocytes % 2.1 %; Platelet Count 225 K/mcL (140-400); Red Blood Count 2.39 M/mcL (4.19-5.50); Red Cell Distribution Width 15.8 % (11.5-14.5); Segmented Neutrophils % 91.3 %
[2021-11-05 02:18] LABS: Lymphocytes # 1.1 K/mcL (0.6-4.6); Neutrophils # 41.7 K/mcL (1.6-8.9); White Blood Count 45.7 K/mcL (4.3-11.1)
[2021-11-05 02:24] LABS: Calcium 8.2 mg/dL (8.6-10.3); Potassium 5.6 mEq/L (3.5-5.1)
[2021-11-05 02:43] LABS: Platelet Estimate Normal (Normal)
[2021-11-05] MEDS ORDERED: Insulin DETEMIR 100 UNIT/ML X5UNITS SUBQ ONE (02:56)
[2021-11-05] MEDS ORDERED: 0.9 % Sodium Chloride 250 ML IVC ONE (03:11)
[2021-11-05] MEDS ORDERED: 0.9 % Sodium Chloride 500 ML IVC ONE ×2 (03:58→04:08)
[2021-11-05] MEDS ORDERED: Vancomycin 1,250 MG/262.5 ML IV.SOLN IVPB ONE (04:00)
[2021-11-05 04:31] LABS: Sodium, Urine 40.6 mEq/L
[2021-11-05] MEDS: Pantoprazole 40 MG VIAL IVP SCH ×2 (05:38→17:11)
[2021-11-05] MEDS: Piperacillin/Tazobactam 3.375 GM in 0.9 % Sodium Chloride Mini Bag 100 ML IVPB SCH ×2 (05:38→17:10)
[2021-11-05 07:13] LABS: Albumin 2.7 g/dL (3.5-5.7); Albumin/Globulin Ratio 1.2 (1.1-2.2); Bilirubin,Direct 0.2 mg/dL (0.0-0.2); Bilirubin,Indirect 0.3 mg/dL (0.0-1.0); Bilirubin,Total 0.5 mg/dL (0.3-1.0); Globulin 2.3 g/dL (2.4-3.5)
[2021-11-05 07:15] LABS: Lactate Dehydrogenase 229 Units/L (140-271)
[2021-11-05 07:34] LABS: Ferritin 123 ng/mL (20-250)
[2021-11-05] MEDS: Insulin DETEMIR 100 UNIT/ML X5UNITS SUBQ SCH ×3 (08:42→20:00)
[2021-11-05] MEDS: Lactobacillus 1 EACH CAP.SPRINK PO SCH (08:42)
[2021-11-05] MEDS: Magnesium Oxide 400 MG TABLET PO SCH (08:42)
[2021-11-05] MEDS: Insulin LISPRO 300 UNITS/3 ML VIAL SUBQ SCH ×5 (08:43→19:57)
[2021-11-05] MEDS ORDERED: amLODIPine 5 MG TABLET PO SCH (09:00)
[2021-11-05] MEDS ORDERED: Aspirin 81 MG TAB.CHEW PO SCH (09:00)
[2021-11-05] MEDS ORDERED: Famotidine 20 MG TABLET PO SCH (09:00)
[2021-11-05 10:20] LABS: Hematocrit 23.2 % (37.5-50.1); Mean Corpuscular Hemoglobin 28.6 pg (28.0-33.3); Red Cell Distribution Width 15.4 % (11.5-14.5)
[2021-11-05 10:21] LABS: Hemoglobin 7.7 g/dL (12.9-16.9); Mean Corpuscular HGB Conc 33.2 g/dL (31.6-35.5); Mean Corpuscular Volume 86.2 fL (83.0-100.0); Mean Platelet Volume 11.9 fL (9.4-12.4); Platelet Count 182 K/mcL (140-400); Red Blood Count 2.69 M/mcL (4.19-5.50)
[2021-11-05 10:29] LABS: White Blood Count 45.9 K/mcL (4.3-11.1)
[2021-11-05] MEDS: Albumin Human 5% 12.5 GM/250 ML IV.SOLN IVC SCH ×2 (10:50→15:08)
[2021-11-05] MEDS: Norepinephrine 4 MG/254 ML IV.SOLN IVC SCH (10:55)
[2021-11-05] MEDS ORDERED: Calcium Gluconate 1gm/50mL 1 GM/50 ML BAG IVPB PRN (10:56)
[2021-11-05] MEDS ORDERED: Potassium Phosphate 44 MEQ in 0.9 % Sodium Chloride 250 ML IVPB PRN (10:56)
[2021-11-05] MEDS: 0.9 % Sodium Chloride 1,000 ML IVC SCH ×2 (11:02→19:32)
[2021-11-05 11:11] LABS: Lymphocytes # 0.9 K/mcL (0.6-4.6); Monocytes # 0.9 K/mcL (0.0-1.3); Neutrophils # 44.1 K/mcL (1.6-8.9); Platelet Estimate Normal (Normal)
[2021-11-05 11:32] LABS: VBG Ionized Calcium 1.15 mmol/L (1.15-1.35)
[2021-11-05 11:36] LABS: Calcium 7.9 mg/dL (8.6-10.3); Potassium 4.7 mEq/L (3.5-5.1)
[2021-11-05] MEDS ORDERED: Piperacillin/Tazobactam 3.375 GM VIAL ONE (17:05)
[2021-11-05 20:56] LABS: mecA/C & MREJ (MRSA) Gene Not Detected (Not Detect)
[2021-11-05 20:57] LABS: A.calcoaceticus-baumannii cplx Not Detected (Not Detect); Bacteroides fragilis by PCR Not Detected (Not Detect); Candida albicans by PCR Not Detected (Not Detect); Candida auris by PCR Not Detected (Not Detect); Candida glabrata by PCR Not Detected (Not Detect); Candida krusei by PCR Not Detected (Not Detect); Candida parapsilosis by PCR Not Detected (Not Detect); Candida tropicalis by PCR Not Detected (Not Detect); Crypto. neoformans/gattii PCR Not Detected (Not Detect); Enterobacter cloacae Cmplx PCR Not Detected (Not Detect); Enterobacterales by PCR Not Detected (Not Detect); Enterococcus faecalis by PCR Not Detected (Not Detect); Enterococcus faecium by PCR Not Detected (Not Detect); Escherichia coli by PCR Not Detected (Not Detect); Klebs. pneumoniae group by PCR Not Detected (Not Detect); Klebsiella aerogenes by PCR Not Detected (Not Detect); Klebsiella oxytoca by PCR Not Detected (Not Detect); Proteus by PCR Not Detected (Not Detect); Pseudomonas aeruginosa by PCR Not Detected (Not Detect); Salmonella species by PCR Not Detected (Not Detect); Serratia marcescens by PCR Not Detected (Not Detect); Staph epidermidis by PCR Not Detected (Not Detect); Staph lugdunensis by PCR Not Detected (Not Detect); Staphylococcus aureus by PCR DETECTED (Not Detect); Staphylococcus by PCR Not Detected (Not Detect); Stenotrophomonas maltophilia Not Detected (Not Detect); Streptococcus agalactiae(B)PCR Not Detected (Not Detect); Streptococcus by PCR Not Detected (Not Detect); Streptococcus pneumoniae PCR Not Detected (Not Detect); Streptococcus pyogenes (A) PCR Not Detected (Not Detect)
[2021-11-06] MEDS: 0.9 % Sodium Chloride 1,000 ML IVC SCH (02:14)
[2021-11-06 03:55] LABS: Hematocrit 22.9 % (37.5-50.1); Hemoglobin 7.4 g/dL (12.9-16.9); Mean Corpuscular HGB Conc 32.3 g/dL (31.6-35.5); Mean Corpuscular Hemoglobin 28.5 pg (28.0-33.3); Mean Corpuscular Volume 88.1 fL (83.0-100.0); Mean Platelet Volume 12.3 fL (9.4-12.4); Nucleated Red Blood Cells 0.1 /100 WBC (0); Platelet Count 153 K/mcL (140-400)
[2021-11-06 04:07] LABS: Calcium 7.4 mg/dL (8.6-10.3); Potassium 4.6 mEq/L (3.5-5.1)
[2021-11-06 04:18] LABS: Lymphocytes # 0.6 K/mcL (0.6-4.6); Monocytes # 0.6 K/mcL (0.0-1.3); Neutrophils # 30.7 K/mcL (1.6-8.9); Platelet Estimate Normal (Normal)
[2021-11-06] MEDS: Pantoprazole 40 MG VIAL IVP SCH ×2 (04:25→15:41)
[2021-11-06] MEDS: Piperacillin/Tazobactam 3.375 GM in 0.9 % Sodium Chloride Mini Bag 100 ML IVPB SCH (04:26)
[2021-11-06] MEDS: Insulin LISPRO 300 UNITS/3 ML VIAL SUBQ SCH ×3 (04:26→15:47)
[2021-11-06 04:43] LABS: Uric Acid 7.8 mg/dL (2.3-7.6)
[2021-11-06] MEDS: Norepinephrine 4 MG/254 ML IV.SOLN IVC SCH (07:40)
[2021-11-06] MEDS: Insulin DETEMIR 100 UNIT/ML X5UNITS SUBQ SCH (07:55)
[2021-11-06] MEDS: Lactobacillus 1 EACH CAP.SPRINK PO SCH (07:55)
[2021-11-06] MEDS: Magnesium Oxide 400 MG TABLET PO SCH (07:55)
[2021-11-06] MEDS ORDERED: Albuterol 2.5 MG/3 ML NEBULIZER IH PRN (08:03)
[2021-11-06] MEDS ORDERED: Furosemide 40 MG/4 ML VIAL IVP ONE (08:03)
[2021-11-06] MEDS: Ipratropium/Albuterol Neb 3 ML IH SCH ×5 (08:17→23:45)
[2021-11-06] MEDS: MethylPREDNISolone 40 MG/ML VIAL IVP SCH ×3 (09:08→23:05)
[2021-11-06] MEDS: levoFLOXacin 750 MG/150 ML 750 MG/150 ML BAG IVPB SCH (11:16)
[2021-11-06] MEDS: ceFAZolin 2,000 MG in 0.9 % Sodium Chloride 100 ML IVPB SCH ×2 (11:38→20:07)
[2021-11-06 12:33] LABS: Complement C3 99 mg/dL (87-200)
[2021-11-06] MEDS ORDERED: Insulin DETEMIR 100 UNIT/ML X5UNITS SUBQ SCH (16:00)
[2021-11-06 16:58] LABS: Calcium 7.9 mg/dL (8.6-10.3); Potassium 4.3 mEq/L (3.5-5.1)
[2021-11-06 21:14] LABS: Calcium 8.2 mg/dL (8.6-10.3); Potassium 3.5 mEq/L (3.5-5.1)
[2021-11-06] MEDS ORDERED: *HR* OxyCODONE/APAP 5/325 TABLET PO ONE (22:59)
[2021-11-07] MEDS: Ipratropium/Albuterol Neb 3 ML IH SCH ×6 (03:44→23:21)
[2021-11-07] MEDS: Norepinephrine 4 MG/254 ML IV.SOLN IVC SCH (04:09)
[2021-11-07] MEDS: ceFAZolin 2,000 MG in 0.9 % Sodium Chloride 100 ML IVPB SCH ×3 (04:09→20:37)
[2021-11-07] MEDS: Pantoprazole 40 MG VIAL IVP SCH ×2 (04:17→16:47)
[2021-11-07 05:54] LABS: Basophils % 0.2 %; Hematocrit 27.8 % (37.5-50.1); Hemoglobin 8.8 g/dL (12.9-16.9); Immature Granulocytes % 5.6 % (0-4); Lymphocytes # 0.7 K/mcL (0.6-4.6); Lymphocytes % 6.1 %; Mean Corpuscular HGB Conc 31.7 g/dL (31.6-35.5); Mean Corpuscular Hemoglobin 27.2 pg (28.0-33.3); Mean Corpuscular Volume 86.1 fL (83.0-100.0); Mean Platelet Volume 12.1 fL (9.4-12.4); Monocytes # 0.2 K/mcL (0.0-1.3); Monocytes % 1.9 %; Neutrophils # 9.3 K/mcL (1.6-8.9); Nucleated Red Blood Cells 0.3 /100 WBC (0); Platelet Count 205 K/mcL (140-400); Red Blood Count 3.23 M/mcL (4.19-5.50); Red Cell Distribution Width 15.7 % (11.5-14.5); Segmented Neutrophils % 86.2 %
[2021-11-07 06:03] LABS: White Blood Count 10.8 K/mcL (4.3-11.1)
[2021-11-07 06:20] LABS: Calcium 8.4 mg/dL (8.6-10.3); Lactate Dehydrogenase 248 Units/L (140-271); Potassium 4.1 mEq/L (3.5-5.1); Total Protein 6.2 g/dL (6.4-8.9)
[2021-11-07 06:24] LABS: Anisocytosis 1+ (Not Present); Platelet Estimate Normal (Normal)
[2021-11-07 06:27] LABS: INR 1.2; Prothrombin Time 13.5 Seconds (9.4-12.1)
[2021-11-07] MEDS ORDERED: *HR* Dextrose 50 % in Water (Syg) 50 ML SYRINGE IVP PRN (06:41)
[2021-11-07] MEDS ORDERED: Dextrose Gel 15 GM/37.5 ML TUBE PO PRN ×2 (06:41)
[2021-11-07] MEDS ORDERED: D5% in Water 1,000 ML IVC PRN (06:41)
[2021-11-07] MEDS: Insulin LISPRO 300 UNITS/3 ML VIAL SUBQ SCH ×4 (06:51→21:05)
[2021-11-07 07:56] LABS: A.calcoaceticus-baumannii cplx Not Detected (Not Detect); Bacteroides fragilis by PCR Not Detected (Not Detect); CTX-M ESBL Gene Not Detected (Not Detect); Candida albicans by PCR Not Detected (Not Detect); Candida auris by PCR Not Detected (Not Detect); Candida glabrata by PCR Not Detected (Not Detect); Candida krusei by PCR Not Detected (Not Detect); Candida parapsilosis by PCR Not Detected (Not Detect); Candida tropicalis by PCR Not Detected (Not Detect); Crypto. neoformans/gattii PCR Not Detected (Not Detect); Enterobacter cloacae Cmplx PCR Not Detected (Not Detect); Enterococcus faecalis by PCR Not Detected (Not Detect); Enterococcus faecium by PCR Not Detected (Not Detect); Escherichia coli by PCR DETECTED (Not Detect); IMP Carbapenem-Resist Gene Not Detected (Not Detect); Klebs. pneumoniae group by PCR Not Detected (Not Detect); Klebsiella aerogenes by PCR Not Detected (Not Detect); Klebsiella oxytoca by PCR Not Detected (Not Detect); NDM Carbapenem-Resist Gene Not Detected (Not Detect); OXA-48-like Carbap-Resist Gene Not Detected (Not Detect); Proteus by PCR Not Detected (Not Detect); Pseudomonas aeruginosa by PCR Not Detected (Not Detect); Salmonella species by PCR Not Detected (Not Detect); Serratia marcescens by PCR Not Detected (Not Detect); Staph epidermidis by PCR Not Detected (Not Detect); Staph lugdunensis by PCR Not Detected (Not Detect); Staphylococcus aureus by PCR DETECTED (Not Detect); Stenotrophomonas maltophilia Not Detected (Not Detect); Streptococcus agalactiae(B)PCR Not Detected (Not Detect); Streptococcus by PCR Not Detected (Not Detect); Streptococcus pneumoniae PCR Not Detected (Not Detect); Streptococcus pyogenes (A) PCR Not Detected (Not Detect); VIM Carbapenem-Resist Gene Not Detected (Not Detect); blaKPC Carbapenem-Resist Gene Not Detected (Not Detect); mcr-1 Colistin-Resist Gene Not Detected (Not Detect); mecA/C & MREJ (MRSA) Gene Not Detected (Not Detect)
[2021-11-07] MEDS: Lactobacillus 1 EACH CAP.SPRINK PO SCH (08:12)
[2021-11-07] MEDS: Magnesium Oxide 400 MG TABLET PO SCH (08:13)
[2021-11-07] MEDS: MethylPREDNISolone 40 MG/ML VIAL IVP SCH (08:13)
[2021-11-07 09:14] LABS: Calcium 8.6 mg/dL (8.6-10.3)
[2021-11-07 10:08] LABS: Influenza A PCR Body Fluid NOT DETECTED; Influenza B PCR Body Fluid NOT DETECTED; RVP Body Fluid Source BRONCHIAL WASH
[2021-11-07 12:54] LABS: RSV PCR Body Fluid NOT DETECTED
[2021-11-07 19:36] LABS: RBC,Pleural Fluid 256000 RBC/mcL
[2021-11-07 19:38] LABS: Appearance of Pleural Fl Cloudy (Clear)
[2021-11-07 20:20] LABS: Glucose,Pleural Fluid < 10 mg/dL (No Ref Range); LDH,Pleural Fluid > 1200 Units/L (No Ref Range); Total Protein,Pleural Fluid 3.2 g/dL
[2021-11-07] MEDS: Acetaminophen 325 MG TABLET PO PRN (20:37)
[2021-11-07] MEDS ORDERED: Insulin DETEMIR 100 UNIT/ML X5UNITS SUBQ SCH ×2 (21:00)
[2021-11-07 22:29] LABS: Basophils,Pleural Fluid 0 %; Eosinophils,Pleural Fluid 0 %; Monocytes,Pleural Fluid 0 %
[2021-11-08] MEDS: ceFAZolin 2,000 MG in 0.9 % Sodium Chloride 100 ML IVPB SCH ×3 (03:39→22:51)
[2021-11-08] MEDS: Ipratropium/Albuterol Neb 3 ML IH SCH ×6 (04:16→23:55)
[2021-11-08] MEDS: Pantoprazole 40 MG VIAL IVP SCH ×2 (06:46→18:34)
[2021-11-08 07:29] LABS: Calcium 8.9 mg/dL (8.6-10.3); Potassium 4.6 mEq/L (3.5-5.1)
[2021-11-08 07:31] LABS: Albumin 3.6 g/dL (3.5-5.7); Albumin/Globulin Ratio 1.2 (1.1-2.2); Bilirubin,Total 0.3 mg/dL (0.3-1.0); Calcium 8.8 mg/dL (8.6-10.3); Globulin 2.9 g/dL (2.4-3.5); Phosphorous 3.9 mg/dL (2.7-4.5); Potassium 4.5 mEq/L (3.5-5.1); Total Protein 6.5 g/dL (6.4-8.9)
[2021-11-08] MEDS: Insulin LISPRO 300 UNITS/3 ML VIAL SUBQ SCH ×4 (10:48→18:36)
[2021-11-08] MEDS: MethylPREDNISolone 40 MG/ML VIAL IVP SCH (10:53)
[2021-11-08] MEDS: Lactobacillus 1 EACH CAP.SPRINK PO SCH (10:54)
[2021-11-08] MEDS: Magnesium Oxide 400 MG TABLET PO SCH (10:54)
[2021-11-08] MEDS: levoFLOXacin 750 MG/150 ML 750 MG/150 ML BAG IVPB SCH (10:54)
[2021-11-08 13:02] LABS: Basophils % 0.3 %; Eosinophils % 0.1 %; Hematocrit 29.9 % (37.5-50.1); Hemoglobin 9.3 g/dL (12.9-16.9); Immature Granulocytes % 4.2 % (0-4); Lymphocytes # 0.7 K/mcL (0.6-4.6); Mean Corpuscular HGB Conc 31.1 g/dL (31.6-35.5); Mean Corpuscular Hemoglobin 27.4 pg (28.0-33.3); Mean Corpuscular Volume 88.2 fL (83.0-100.0); Mean Platelet Volume 12.9 fL (9.4-12.4); Monocytes # 0.7 K/mcL (0.0-1.3); Monocytes % 4.7 %; Neutrophils # 11.9 K/mcL (1.6-8.9); Nucleated Red Blood Cells 0.6 /100 WBC (0); Platelet Count 246 K/mcL (140-400); Red Blood Count 3.39 M/mcL (4.19-5.50); Segmented Neutrophils % 85.7 %; White Blood Count 13.9 K/mcL (4.3-11.1)
[2021-11-08 13:04] LABS: VBG Ionized Calcium 1.11 mmol/L (1.15-1.35)
[2021-11-08] MEDS: Insulin DETEMIR 100 UNIT/ML X5UNITS SUBQ SCH (19:32)
[2021-11-09] MEDS: Insulin LISPRO 300 UNITS/3 ML VIAL SUBQ SCH ×8 (00:23→20:42)
[2021-11-09] MEDS: Ipratropium/Albuterol Neb 3 ML IH SCH ×6 (04:34→23:06)
[2021-11-09 05:14] LABS: Basophils % 0.4 %; Hematocrit 26.4 % (37.5-50.1); Hemoglobin 8.3 g/dL (12.9-16.9); Lymphocytes # 0.8 K/mcL (0.6-4.6); Lymphocytes % 9.3 %; Mean Corpuscular HGB Conc 31.4 g/dL (31.6-35.5); Mean Corpuscular Hemoglobin 27.6 pg (28.0-33.3); Mean Corpuscular Volume 87.7 fL (83.0-100.0); Mean Platelet Volume 12.7 fL (9.4-12.4); Monocytes # 0.9 K/mcL (0.0-1.3); Neutrophils # 6.2 K/mcL (1.6-8.9); Platelet Count 237 K/mcL (140-400); Red Blood Count 3.01 M/mcL (4.19-5.50); Red Cell Distribution Width 15.7 % (11.5-14.5); Segmented Neutrophils % 73.3 %; White Blood Count 8.4 K/mcL (4.3-11.1)
[2021-11-09 05:29] LABS: Calcium 8.3 mg/dL (8.6-10.3); Potassium 4.7 mEq/L (3.5-5.1)
[2021-11-09 05:47] LABS: Platelet Estimate Normal (Normal)
[2021-11-09] MEDS: Pantoprazole 40 MG VIAL IVP SCH ×2 (06:27→17:11)
[2021-11-09] MEDS: ceFAZolin 2,000 MG in 0.9 % Sodium Chloride 100 ML IVPB SCH ×3 (09:45→20:42)
[2021-11-09] MEDS: Insulin DETEMIR 100 UNIT/ML X5UNITS SUBQ SCH ×2 (09:46→20:43)
[2021-11-09] MEDS: Lactobacillus 1 EACH CAP.SPRINK PO SCH (09:47)
[2021-11-09] MEDS: Magnesium Oxide 400 MG TABLET PO SCH (09:47)
[2021-11-09] MEDS: MethylPREDNISolone 40 MG/ML VIAL IVP SCH (09:47)
[2021-11-09] MEDS ORDERED: Alteplase (Cathflo) 10 MG in 0.9 % Sodium Chloride 30 ML IX SCH (10:15)
[2021-11-09 12:15] LABS: ANA IgG by ELISA NONE DETECTED (None Detected)
[2021-11-09 22:40] LABS: Fluid Source for Cholesterol PLEURAL FLUID
[2021-11-10] MEDS: Ipratropium/Albuterol Neb 3 ML IH SCH ×6 (04:01→23:09)
[2021-11-10 04:15] LABS: Basophils % 0.2 %; Hematocrit 26.2 % (37.5-50.1); Hemoglobin 8.3 g/dL (12.9-16.9); Immature Granulocytes % 4.3 % (0-4); Lymphocytes # 1.3 K/mcL (0.6-4.6); Lymphocytes % 11.3 %; Mean Corpuscular HGB Conc 31.7 g/dL (31.6-35.5); Mean Corpuscular Hemoglobin 27.2 pg (28.0-33.3); Mean Corpuscular Volume 85.9 fL (83.0-100.0); Mean Platelet Volume 12.7 fL (9.4-12.4); Monocytes # 1.1 K/mcL (0.0-1.3); Monocytes % 10.1 %; Neutrophils # 8.3 K/mcL (1.6-8.9); Nucleated Red Blood Cells 0.7 /100 WBC (0); Platelet Count 265 K/mcL (140-400); Red Blood Count 3.05 M/mcL (4.19-5.50); Red Cell Distribution Width 15.5 % (11.5-14.5); Segmented Neutrophils % 74.1 %; White Blood Count 11.2 K/mcL (4.3-11.1)
[2021-11-10 04:29] LABS: Calcium 8.1 mg/dL (8.6-10.3); Potassium 3.9 mEq/L (3.5-5.1)
[2021-11-10] MEDS: ceFAZolin 2,000 MG in 0.9 % Sodium Chloride 100 ML IVPB SCH ×3 (05:33→21:16)
[2021-11-10] MEDS: Pantoprazole 40 MG VIAL IVP SCH (05:34)
[2021-11-10] MEDS: Insulin LISPRO 300 UNITS/3 ML VIAL SUBQ SCH ×5 (07:37→21:21)
[2021-11-10] MEDS: Insulin DETEMIR 100 UNIT/ML X5UNITS SUBQ SCH ×2 (07:52→21:23)
[2021-11-10] MEDS: Magnesium Oxide 400 MG TABLET PO SCH (07:53)
[2021-11-10] MEDS: Lactobacillus 1 EACH CAP.SPRINK PO SCH (07:53)
[2021-11-10] MEDS: MethylPREDNISolone 40 MG/ML VIAL IVP SCH (08:06)
[2021-11-10] MEDS ORDERED: Alteplase (Cathflo) 10 MG in 0.9 % Sodium Chloride 30 ML IX ONE (10:18)
[2021-11-10 10:58] LABS: Cholesterol,Body Fluid 981 mg/dL
[2021-11-10] MEDS: levoFLOXacin 750 MG/150 ML 750 MG/150 ML BAG IVPB SCH (13:35)
[2021-11-10 15:35] LABS: ANCA IFA Titer <1:20 (<1:20)
[2021-11-10] MEDS: lisinopriL 10 MG TABLET PO SCH (16:38)
[2021-11-11] MEDS: ceFAZolin 2,000 MG in 0.9 % Sodium Chloride 100 ML IVPB SCH ×3 (04:17→21:25)
[2021-11-11 04:28] LABS: Basophils % 0.1 %; Hematocrit 26.6 % (37.5-50.1); Hemoglobin 8.3 g/dL (12.9-16.9); Immature Granulocytes % 3.6 % (0-4); Lymphocytes # 1.5 K/mcL (0.6-4.6); Lymphocytes % 15.3 %; Mean Corpuscular HGB Conc 31.2 g/dL (31.6-35.5); Mean Corpuscular Hemoglobin 26.9 pg (28.0-33.3); Mean Corpuscular Volume 86.4 fL (83.0-100.0); Mean Platelet Volume 12.5 fL (9.4-12.4); Monocytes # 1.2 K/mcL (0.0-1.3); Monocytes % 12.4 %; Neutrophils # 6.5 K/mcL (1.6-8.9); Nucleated Red Blood Cells 0.4 /100 WBC (0); Platelet Count 287 K/mcL (140-400); Red Blood Count 3.08 M/mcL (4.19-5.50); Red Cell Distribution Width 15.7 % (11.5-14.5); Segmented Neutrophils % 68.6 %; White Blood Count 9.5 K/mcL (4.3-11.1)
[2021-11-11] MEDS: Ipratropium/Albuterol Neb 3 ML IH SCH ×5 (04:30→20:46)
[2021-11-11 04:46] LABS: Calcium 8.2 mg/dL (8.6-10.3); Magnesium 1.7 mg/dL (1.6-2.6); Potassium 4.3 mEq/L (3.5-5.1)
[2021-11-11] MEDS: Magnesium Oxide 400 MG TABLET PO SCH (08:06)
[2021-11-11] MEDS: lisinopriL 10 MG TABLET PO SCH (08:06)
[2021-11-11] MEDS: Lactobacillus 1 EACH CAP.SPRINK PO SCH (08:06)
[2021-11-11] MEDS: Insulin LISPRO 300 UNITS/3 ML VIAL SUBQ SCH ×4 (08:07→21:27)
[2021-11-11] MEDS: Insulin DETEMIR 100 UNIT/ML X5UNITS SUBQ SCH ×2 (08:09→21:26)
[2021-11-11] MEDS: MethylPREDNISolone 40 MG/ML VIAL IVP SCH (11:14)
[2021-11-11 11:28] LABS: ANCA IFA Pattern NONE DETECTED (None Detected); Serine Protease-3 Antibody 0 AU/mL (0-19)
[2021-11-11] MEDS ORDERED: Acetaminophen 325 MG TABLET PO PRN (12:24)
[2021-11-12] MEDS: Ipratropium/Albuterol Neb 3 ML IH SCH ×7 (00:15→23:18)
[2021-11-12] MEDS: ceFAZolin 2,000 MG in 0.9 % Sodium Chloride 100 ML IVPB SCH ×3 (05:20→20:42)
[2021-11-12] MEDS: Insulin LISPRO 300 UNITS/3 ML VIAL SUBQ SCH ×4 (08:22→20:47)
[2021-11-12] MEDS: Magnesium Oxide 400 MG TABLET PO SCH (08:25)
[2021-11-12] MEDS: lisinopriL 10 MG TABLET PO SCH (08:25)
[2021-11-12] MEDS: Lactobacillus 1 EACH CAP.SPRINK PO SCH (08:27)
[2021-11-12] MEDS: Insulin DETEMIR 100 UNIT/ML X5UNITS SUBQ SCH ×2 (08:43→20:47)
[2021-11-12] MEDS ORDERED: predniSONE 20 MG TABLET PO SCH (09:00)
[2021-11-12] MEDS: levoFLOXacin 750 MG/150 ML 750 MG/150 ML BAG IVPB SCH (12:17)
[2021-11-12] MEDS: hydroCHLOROthiazide 25 MG TABLET PO SCH (14:35)
[2021-11-13] MEDS: Ipratropium/Albuterol Neb 3 ML IH SCH ×6 (04:27→23:21)
[2021-11-13] MEDS: ceFAZolin 2,000 MG in 0.9 % Sodium Chloride 100 ML IVPB SCH ×3 (05:24→20:17)
[2021-11-13 06:50] LABS: Calcium 8.2 mg/dL (8.6-10.3); Potassium 3.8 mEq/L (3.5-5.1)
[2021-11-13] MEDS: Insulin LISPRO 300 UNITS/3 ML VIAL SUBQ SCH ×4 (09:23→20:12)
[2021-11-13] MEDS: hydroCHLOROthiazide 25 MG TABLET PO SCH (09:24)
[2021-11-13] MEDS: lisinopriL 10 MG TABLET PO SCH (09:24)
[2021-11-13] MEDS: Magnesium Oxide 400 MG TABLET PO SCH (09:24)
[2021-11-13] MEDS: Lactobacillus 1 EACH CAP.SPRINK PO SCH (09:24)
[2021-11-13] MEDS: Insulin DETEMIR 100 UNIT/ML X5UNITS SUBQ SCH ×2 (09:44→20:12)
[2021-11-14] MEDS: Ipratropium/Albuterol Neb 3 ML IH SCH ×2 (04:15→07:23)
[2021-11-14] MEDS: ceFAZolin 2,000 MG in 0.9 % Sodium Chloride 100 ML IVPB SCH ×3 (05:15→19:29)
[2021-11-14 05:51] LABS: Basophils % 0.1 %; Eosinophils # 0.1 K/mcL (0.0-0.6); Eosinophils % 1.4 %; Hematocrit 29.3 % (37.5-50.1); Immature Granulocytes % 1.6 % (0-4); Lymphocytes % 19.7 %; Mean Corpuscular HGB Conc 30.7 g/dL (31.6-35.5); Mean Corpuscular Hemoglobin 26.9 pg (28.0-33.3); Mean Corpuscular Volume 87.7 fL (83.0-100.0); Mean Platelet Volume 11.8 fL (9.4-12.4); Monocytes % 9.8 %; Neutrophils # 6.7 K/mcL (1.6-8.9); Platelet Count 301 K/mcL (140-400); Red Blood Count 3.34 M/mcL (4.19-5.50); Red Cell Distribution Width 16.3 % (11.5-14.5); Segmented Neutrophils % 67.4 %; White Blood Count 9.9 K/mcL (4.3-11.1)
[2021-11-14 05:54] LABS: Prothrombin Time 11.2 Seconds (9.4-12.1)
[2021-11-14 06:13] LABS: Calcium 8.3 mg/dL (8.6-10.3); Potassium 3.5 mEq/L (3.5-5.1)
[2021-11-14] MEDS: Insulin LISPRO 300 UNITS/3 ML VIAL SUBQ SCH ×4 (08:34→19:29)
[2021-11-14] MEDS: lisinopriL 10 MG TABLET PO SCH (08:35)
[2021-11-14] MEDS: Magnesium Oxide 400 MG TABLET PO SCH (08:35)
[2021-11-14] MEDS: Lactobacillus 1 EACH CAP.SPRINK PO SCH (08:35)
[2021-11-14] MEDS: hydroCHLOROthiazide 25 MG TABLET PO SCH (08:35)
[2021-11-14 10:08] LABS: Magnesium 1.6 mg/dL (1.6-2.6)
[2021-11-14] MEDS: Insulin DETEMIR 100 UNIT/ML X5UNITS SUBQ SCH ×2 (10:16→19:31)
[2021-11-14] MEDS ORDERED: Ipratropium/Albuterol Neb 3 ML IH PRN (10:19)
[2021-11-15 03:22] LABS: Basophils % 0.2 %; Eosinophils # 0.1 K/mcL (0.0-0.6); Eosinophils % 1.3 %; Hematocrit 27.9 % (37.5-50.1); Hemoglobin 8.7 g/dL (12.9-16.9); Immature Granulocytes % 1.4 % (0-4); Lymphocytes # 2.1 K/mcL (0.6-4.6); Lymphocytes % 19.7 %; Mean Corpuscular HGB Conc 31.2 g/dL (31.6-35.5); Mean Corpuscular Hemoglobin 27.6 pg (28.0-33.3); Mean Corpuscular Volume 88.6 fL (83.0-100.0); Mean Platelet Volume 12.1 fL (9.4-12.4); Monocytes % 9.6 %; Neutrophils # 7.2 K/mcL (1.6-8.9); Platelet Count 275 K/mcL (140-400); Red Blood Count 3.15 M/mcL (4.19-5.50); Red Cell Distribution Width 16.4 % (11.5-14.5); Segmented Neutrophils % 67.8 %; White Blood Count 10.6 K/mcL (4.3-11.1)
[2021-11-15 03:51] LABS: Calcium 7.8 mg/dL (8.6-10.3); Magnesium 1.9 mg/dL (1.6-2.6)
[2021-11-15] MEDS: ceFAZolin 2,000 MG in 0.9 % Sodium Chloride 100 ML IVPB SCH ×3 (04:16→20:42)
[2021-11-15] MEDS: Insulin LISPRO 300 UNITS/3 ML VIAL SUBQ SCH ×4 (09:54→20:48)
[2021-11-15] MEDS: Insulin DETEMIR 100 UNIT/ML X5UNITS SUBQ SCH ×2 (10:43→20:46)
[2021-11-15] MEDS: Lactobacillus 1 EACH CAP.SPRINK PO SCH (10:43)
[2021-11-15] MEDS: Magnesium Oxide 400 MG TABLET PO SCH (10:44)
[2021-11-15 13:10] LABS: Herpes Simplex Source BAL
[2021-11-15 14:31] LABS: Herpes Simplex 1 Subtype PCR NOT DETECTED; Herpes Simplex 2 Subtype PCR NOT DETECTED
[2021-11-16 00:14] VITALS: O2SAT 95
[2021-11-16 02:49] LABS: Basophils % 0.2 %; Eosinophils # 0.1 K/mcL (0.0-0.6); Eosinophils % 1.4 %; Hematocrit 26.4 % (37.5-50.1); Hemoglobin 8.2 g/dL (12.9-16.9); Immature Granulocytes % 1.1 % (0-4); Lymphocytes # 2.2 K/mcL (0.6-4.6); Lymphocytes % 24.2 %; Mean Corpuscular HGB Conc 31.1 g/dL (31.6-35.5); Mean Corpuscular Hemoglobin 27.2 pg (28.0-33.3); Mean Corpuscular Volume 87.4 fL (83.0-100.0); Mean Platelet Volume 11.8 fL (9.4-12.4); Monocytes # 1.1 K/mcL (0.0-1.3); Monocytes % 11.6 %; Neutrophils # 5.7 K/mcL (1.6-8.9); Platelet Count 246 K/mcL (140-400); Red Blood Count 3.02 M/mcL (4.19-5.50); Red Cell Distribution Width 16.5 % (11.5-14.5); Segmented Neutrophils % 61.5 %; White Blood Count 9.2 K/mcL (4.3-11.1)
[2021-11-16 03:03] LABS: Calcium 7.9 mg/dL (8.6-10.3); Magnesium 1.8 mg/dL (1.6-2.6); Potassium 4.1 mEq/L (3.5-5.1)
[2021-11-16] MEDS: ceFAZolin 2,000 MG in 0.9 % Sodium Chloride 100 ML IVPB SCH (05:36)
[2021-11-16 07:41] VITALS: BP 150/57; PULSE 63; TEMP 98.8
[2021-11-16] MEDS: Insulin LISPRO 300 UNITS/3 ML VIAL SUBQ SCH (07:59)
[2021-11-16] MEDS: Magnesium Oxide 400 MG TABLET PO SCH (09:00)
[2021-11-16] MEDS: Lactobacillus 1 EACH CAP.SPRINK PO SCH (09:01)
[2021-11-16] MEDS: Insulin DETEMIR 100 UNIT/ML X5UNITS SUBQ SCH (09:02)
[2021-11-16] MEDS ORDERED: Flu Vac QV 22-23 (6MOS UP)/PF 0.5 ML SYRINGE IM ONE (10:23)
== END 2021-11-16 11:42 | disposition home health service (06) | DRG 663 ==
LOC: ICNU → SUATTDRO 02:22 → OBSVTOIN 02:22 → 2NNU 15:10 → 3ANU 11-03 20:22 → ICNU 11-05 05:41 → 2ANU 11-08 14:53
PROVIDERS: ADMIT Internal Medicine; ATTEND Family Medicine

== ENCOUNTER 2021-11-19 09:47 | Inpatient (IN) ==
[2021-11-19] MEDS ORDERED: Acetaminophen 325 MG TABLET PO PRN (11:39)
[2021-11-19] MEDS ORDERED: Albuterol 2.5 MG/3 ML NEBULIZER IH PRN (11:39)
[2021-11-19] MEDS ORDERED: Naloxone 0.4 MG/ML INJ IVP PRN (11:39)
[2021-11-19] MEDS ORDERED: *HR* Heparin 5,000 UNIT/ML VIAL IVP PRN ×2 (11:47)
[2021-11-19] MEDS ORDERED: *HR* Metoprolol 5 MG/5 ML VIAL IVP PRN (11:58)
[2021-11-19] MEDS ORDERED: Heparin 25,000UNIT/250ML 1/2NS 25,000 UNIT/250 ML IV.SOLN IVC SCH (12:00)
[2021-11-19 12:48] LABS: Bilirubin,Urine Negative (Negative); Blood,Urine Negative (Negative); Clarity,Urine Clear (Clear); Color,Urine Colorless (Yellow); Glucose,Urine (UA) >=1000 mg/dL (Normal); Ketones,Urine Negative (Negative); Leukocyte Esterase,Urine Negative (Negative); Mucus,Urine Few per lpf (None-Few); Nitrite,Urine Negative (Negative); Protein,Urine Negative (Neg-Trace); RBC,Urine 0-3 per hpf (0-3); Specific Gravity,Urine 1.014 (1.010-1.025); Urobilinogen,Urine Normal (Normal)
[2021-11-19] MEDS: Piperacillin/Tazobactam 3.375 GM in 0.9 % Sodium Chloride Mini Bag 100 ML IVPB SCH ×3 (12:58→23:56)
[2021-11-19 12:59] LABS: Basophils % 0.2 %; Hemoglobin 8.3 g/dL (12.9-16.9); Immature Granulocytes % 0.5 % (0-4); Lymphocytes # 0.2 K/mcL (0.6-4.6); Lymphocytes % 1.9 %; Mean Corpuscular HGB Conc 30.7 g/dL (31.6-35.5); Mean Corpuscular Hemoglobin 26.9 pg (28.0-33.3); Mean Corpuscular Volume 87.7 fL (83.0-100.0); Mean Platelet Volume 11.8 fL (9.4-12.4); Monocytes # 0.2 K/mcL (0.0-1.3); Monocytes % 1.3 %; Neutrophils # 11.7 K/mcL (1.6-8.9); Platelet Count 255 K/mcL (140-400); Red Blood Count 3.08 M/mcL (4.19-5.50); Red Cell Distribution Width 17.2 % (11.5-14.5); Segmented Neutrophils % 96.1 %; White Blood Count 12.2 K/mcL (4.3-11.1)
[2021-11-19] MEDS: Furosemide 40 MG/4 ML VIAL IVP SCH ×2 (12:59→19:51)
[2021-11-19 13:04] LABS: Heparin anti-factor XA UFH 0.76 IU/mL (0.30-0.70); INR 1.1; Prothrombin Time 12.3 Seconds (9.4-12.1)
[2021-11-19 13:13] LABS: Albumin 3.4 g/dL (3.5-5.7); Albumin/Globulin Ratio 1.3 (1.1-2.2); Bilirubin,Direct 0.1 mg/dL (0.0-0.2); Bilirubin,Indirect 0.3 mg/dL (0.0-1.0); Bilirubin,Total 0.4 mg/dL (0.3-1.0); Calcium 8.5 mg/dL (8.6-10.3); Globulin 2.7 g/dL (2.4-3.5); Magnesium 1.7 mg/dL (1.6-2.6); Phosphorous 3.3 mg/dL (2.7-4.5); Total Protein 6.1 g/dL (6.4-8.9)
[2021-11-19] MEDS ORDERED: D5% in Water 1,000 ML IVC PRN (13:42)
[2021-11-19] MEDS ORDERED: Dextrose Gel 15 GM/37.5 ML TUBE PO PRN ×2 (13:42)
[2021-11-19] MEDS ORDERED: *HR* Dextrose 50 % in Water (Syg) 50 ML SYRINGE IVP PRN (13:42)
[2021-11-19] MEDS: Ipratropium/Albuterol Neb 3 ML IH SCH ×4 (14:30→23:28)
[2021-11-19 14:41] LABS: Estimated Average Glucose 186 mg/dl; Hemoglobin A1C 8.1 %
[2021-11-19] MEDS ORDERED: Insulin LISPRO 300 UNITS/3 ML VIAL SUBQ SCH ×2 (16:30→21:00)
[2021-11-19 19:11] LABS: Hematocrit 25.7 % (37.5-50.1)
[2021-11-19 19:33] LABS: Calcium 8.8 mg/dL (8.6-10.3); Potassium 3.4 mEq/L (3.5-5.1)
[2021-11-19 19:37] LABS: Troponin I 0.22 ng/mL (< 0.04)
[2021-11-20 00:46] LABS: Basophils % 0.2 %; Hematocrit 23.6 % (37.5-50.1); Hemoglobin 7.4 g/dL (12.9-16.9); Immature Granulocytes % 1.5 % (0-4); Lymphocytes # 0.7 K/mcL (0.6-4.6); Lymphocytes % 11.1 %; Mean Corpuscular HGB Conc 31.4 g/dL (31.6-35.5); Mean Corpuscular Volume 86.1 fL (83.0-100.0); Mean Platelet Volume 11.7 fL (9.4-12.4); Monocytes # 0.3 K/mcL (0.0-1.3); Monocytes % 4.7 %; Platelet Count 225 K/mcL (140-400); Red Blood Count 2.74 M/mcL (4.19-5.50); Red Cell Distribution Width 17.1 % (11.5-14.5); Segmented Neutrophils % 82.5 %
[2021-11-20 01:06] LABS: Alanine Aminotransferase < 3 Units/L (7-52); Albumin/Globulin Ratio 1.1 (1.1-2.2); Alkaline Phosphatase 51 Units/L (34-104); Aspartate Amino Transferase 14 Units/L (13-39); BUN/Creatinine Ratio 20 (6-26); Bilirubin,Direct 0.1 mg/dL (0.0-0.2); Bilirubin,Indirect 0.3 mg/dL (0.0-1.0); Bilirubin,Total 0.4 mg/dL (0.3-1.0); Blood Urea Nitrogen 27 mg/dL (8-23); Calcium 8.4 mg/dL (8.6-10.3); Carbon Dioxide 23 mEq/L (23-29); Chloride 107 mEq/L (98-107); Globulin 2.7 g/dL (2.4-3.5); Glucose 177 mg/dL (70-105); Magnesium 1.6 mg/dL (1.6-2.6); Osmolality,Calculated 301 (280-300); Phosphorous 3.3 mg/dL (2.7-4.5); Potassium 3.8 mEq/L (3.5-5.1); Sodium 141 mEq/L (136-145); Total Protein 5.7 g/dL (6.4-8.9)
[2021-11-20 02:23] LABS: Hematocrit 23.8 % (37.5-50.1); Hemoglobin 7.6 g/dL (12.9-16.9)
[2021-11-20] MEDS: Ipratropium/Albuterol Neb 3 ML IH SCH ×6 (03:58→23:11)
[2021-11-20 06:23] LABS: Hemoglobin 7.5 g/dL (12.9-16.9)
[2021-11-20] MEDS: Piperacillin/Tazobactam 3.375 GM in 0.9 % Sodium Chloride Mini Bag 100 ML IVPB SCH ×3 (07:49→23:14)
[2021-11-20] MEDS: Furosemide 40 MG/4 ML VIAL IVP SCH ×2 (07:50→20:42)
[2021-11-20] MEDS ORDERED: Potassium Phosphate 44 MEQ in 0.9 % Sodium Chloride 250 ML IVPB PRN (08:23)
[2021-11-20] MEDS ORDERED: Calcium Gluconate 1gm/50mL 1 GM/50 ML BAG IVPB PRN (08:23)
[2021-11-20] MEDS ORDERED: Insulin DETEMIR 100 UNIT/ML X5UNITS SUBQ SCH ×2 (09:00→21:00)
[2021-11-20] MEDS: Insulin LISPRO 300 UNITS/3 ML VIAL SUBQ SCH ×3 (09:01→15:54)
[2021-11-20 09:07] LABS: VBG Ionized Calcium 1.12 mmol/L (1.15-1.35)
[2021-11-20 10:34] LABS: Estimated Average Glucose 189 mg/dl; Hemoglobin A1C 8.2 %
[2021-11-20 11:41] LABS: Hematocrit 24.9 % (37.5-50.1); Hemoglobin 7.8 g/dL (12.9-16.9)
[2021-11-20] MEDS ORDERED: D5% in Water 1,000 ML IVC PRN (16:54)
[2021-11-20] MEDS ORDERED: Naloxone 0.4 MG/ML INJ IVP PRN (16:54)
[2021-11-20] MEDS ORDERED: *HR* Metoprolol 5 MG/5 ML VIAL IVP PRN (16:54)
[2021-11-20] MEDS ORDERED: Albuterol 2.5 MG/3 ML NEBULIZER IH PRN (16:54)
[2021-11-20] MEDS ORDERED: *HR* Heparin 5,000 UNIT/ML VIAL IVP PRN ×2 (16:54)
[2021-11-20 19:05] LABS: Hematocrit 23.2 % (37.5-50.1); Hemoglobin 7.1 g/dL (12.9-16.9)
[2021-11-20] MEDS: Heparin 25,000UNIT/250ML 1/2NS 25,000 UNIT/250 ML IV.SOLN IVC SCH (19:37)
[2021-11-20 19:40] LABS: Magnesium 2.6 mg/dL (1.6-2.6); Potassium 4.8 mEq/L (3.5-5.1); Troponin I 0.22 ng/mL (< 0.04)
[2021-11-20] MEDS: Insulin DETEMIR 100 UNIT/ML X5UNITS SUBQ SCH (20:43)
[2021-11-20] MEDS ORDERED: Insulin LISPRO 300 UNITS/3 ML VIAL SUBQ SCH ×2 (21:00)
[2021-11-21] MEDS ORDERED: D5% in Water 1,000 ML IVC PRN (01:10)
[2021-11-21] MEDS ORDERED: Dextrose Gel 15 GM/37.5 ML TUBE PO PRN ×2 (01:10)
[2021-11-21] MEDS ORDERED: *HR* Dextrose 50 % in Water (Syg) 50 ML SYRINGE IVP PRN (01:10)
[2021-11-21] MEDS: Ipratropium/Albuterol Neb 3 ML IH SCH ×6 (03:55→23:33)
[2021-11-21 05:40] LABS: Basophils % 0.3 %; Eosinophils % 0.2 %; Hematocrit 23.1 % (37.5-50.1); Hemoglobin 7.1 g/dL (12.9-16.9); Immature Granulocytes % 0.4 % (0-4); Lymphocytes # 1.9 K/mcL (0.6-4.6); Lymphocytes % 18.2 %; Mean Corpuscular HGB Conc 30.7 g/dL (31.6-35.5); Mean Corpuscular Hemoglobin 26.7 pg (28.0-33.3); Mean Corpuscular Volume 86.8 fL (83.0-100.0); Mean Platelet Volume 11.7 fL (9.4-12.4); Monocytes # 0.8 K/mcL (0.0-1.3); Monocytes % 7.7 %; Neutrophils # 7.6 K/mcL (1.6-8.9); Platelet Count 228 K/mcL (140-400); Red Blood Count 2.66 M/mcL (4.19-5.50); Red Cell Distribution Width 17.4 % (11.5-14.5); Segmented Neutrophils % 73.2 %
[2021-11-21 05:41] LABS: Hematocrit 22.7 % (37.5-50.1); Hemoglobin 7.1 g/dL (12.9-16.9)
[2021-11-21 05:43] LABS: White Blood Count 10.4 K/mcL (4.3-11.1)
[2021-11-21 05:56] LABS: Calcium 8.2 mg/dL (8.6-10.3); Magnesium 2.3 mg/dL (1.6-2.6); Phosphorous 3.1 mg/dL (2.7-4.5); Potassium 4.8 mEq/L (3.5-5.1)
[2021-11-21] MEDS: Insulin DETEMIR 100 UNIT/ML X5UNITS SUBQ SCH ×2 (08:00→21:32)
[2021-11-21] MEDS: Insulin LISPRO 300 UNITS/3 ML VIAL SUBQ SCH ×4 (08:19→21:32)
[2021-11-21] MEDS: Piperacillin/Tazobactam 3.375 GM in 0.9 % Sodium Chloride Mini Bag 100 ML IVPB SCH ×3 (08:53→23:50)
[2021-11-21] MEDS: Furosemide 40 MG/4 ML VIAL IVP SCH (08:56)
[2021-11-21] MEDS ORDERED: Metoprolol XL (24 HR) Succ 25 MG TAB.ER.24H PO SCH (09:00)
[2021-11-21] MEDS ORDERED: Olopatadine Hcl [Pataday] 2.5 ML Drops OP PRN (09:59)
[2021-11-21] MEDS ORDERED: Albumin 25% 25gram/100mL 25 GM/100 ML IV.SOLN IVPB ONE (10:01)
[2021-11-21] MEDS ORDERED: Metoprolol XL (24 HR) Succ 25 MG TAB.ER.24H PO ONE (12:14)
[2021-11-21 12:26] LABS: Hematocrit 25.8 % (37.5-50.1); Hemoglobin 7.9 g/dL (12.9-16.9)
[2021-11-21] MEDS: Furosemide 20 MG/2 ML VIAL IVP SCH (15:54)
[2021-11-21] MEDS: Heparin 25,000UNIT/250ML 1/2NS 25,000 UNIT/250 ML IV.SOLN IVC SCH (21:03)
[2021-11-22] MEDS: Ipratropium/Albuterol Neb 3 ML IH SCH ×5 (04:35→19:59)
[2021-11-22 06:03] LABS: Basophils # 0.1 K/mcL (0.0-0.2); Basophils % 0.7 %; Eosinophils # 0.2 K/mcL (0.0-0.6); Eosinophils % 1.8 %; Hematocrit 26.5 % (37.5-50.1); Immature Granulocytes % 0.3 % (0-4); Lymphocytes # 2.8 K/mcL (0.6-4.6); Mean Corpuscular HGB Conc 30.2 g/dL (31.6-35.5); Mean Corpuscular Hemoglobin 26.8 pg (28.0-33.3); Mean Corpuscular Volume 88.9 fL (83.0-100.0); Mean Platelet Volume 12.6 fL (9.4-12.4); Monocytes # 0.8 K/mcL (0.0-1.3); Monocytes % 8.3 %; Neutrophils # 5.2 K/mcL (1.6-8.9); Platelet Count 261 K/mcL (140-400); Red Blood Count 2.98 M/mcL (4.19-5.50); Red Cell Distribution Width 17.8 % (11.5-14.5); Segmented Neutrophils % 57.9 %
[2021-11-22 06:34] LABS: Calcium 8.8 mg/dL (8.6-10.3); Magnesium 2.1 mg/dL (1.6-2.6); Phosphorous 3.7 mg/dL (2.7-4.5); Potassium 5.3 mEq/L (3.5-5.1)
[2021-11-22] MEDS ORDERED: Famotidine 20 MG TABLET PO SCH (07:30)
[2021-11-22] MEDS: Insulin LISPRO 300 UNITS/3 ML VIAL SUBQ SCH ×4 (08:16→21:11)
[2021-11-22] MEDS: Famotidine 20 MG TABLET PO SCH (08:18)
[2021-11-22] MEDS: Piperacillin/Tazobactam 3.375 GM in 0.9 % Sodium Chloride Mini Bag 100 ML IVPB SCH ×2 (08:56→17:12)
[2021-11-22] MEDS: Albumin 25% 25gram/100mL 25 GM/100 ML IV.SOLN IVPB SCH ×2 (08:58→17:11)
[2021-11-22] MEDS ORDERED: Metoprolol XL (24 HR) Succ 25 MG TAB.ER.24H PO SCH (09:00)
[2021-11-22] MEDS: Insulin DETEMIR 100 UNIT/ML X5UNITS SUBQ SCH ×2 (09:00→21:11)
[2021-11-22] MEDS: Aspirin 81 MG TAB.CHEW PO SCH (10:44)
[2021-11-22] MEDS: Apixaban 5 MG TABLET PO SCH ×2 (10:45→21:11)
[2021-11-22] MEDS: amLODIPine 5 MG TABLET PO SCH (10:46)
[2021-11-22] MEDS: Metoprolol XL (24 HR) Succ 25 MG TAB.ER.24H PO SCH ×2 (10:46→18:54)
[2021-11-22] MEDS: Magnesium Oxide 400 MG TABLET PO SCH (10:46)
[2021-11-22] MEDS: Acetaminophen 325 MG TABLET PO PRN (21:12)
[2021-11-22] MEDS ORDERED: Piperacillin/Tazobactam 3.375 GM VIAL ONE (23:53)
[2021-11-23] MEDS: Albumin 25% 25gram/100mL 25 GM/100 ML IV.SOLN IVPB SCH (00:02)
[2021-11-23] MEDS: Piperacillin/Tazobactam 3.375 GM in 0.9 % Sodium Chloride Mini Bag 100 ML IVPB SCH ×3 (00:03→15:30)
[2021-11-23] MEDS: Ipratropium/Albuterol Neb 3 ML IH SCH ×7 (00:18→23:03)
[2021-11-23 04:36] LABS: Basophils % 0.6 %; Eosinophils # 0.2 K/mcL (0.0-0.6); Eosinophils % 4.4 %; Hematocrit 23.4 % (37.5-50.1); Immature Granulocytes % 0.2 % (0-4); Lymphocytes # 1.8 K/mcL (0.6-4.6); Lymphocytes % 35.3 %; Mean Corpuscular HGB Conc 29.9 g/dL (31.6-35.5); Mean Corpuscular Hemoglobin 26.5 pg (28.0-33.3); Mean Corpuscular Volume 88.6 fL (83.0-100.0); Mean Platelet Volume 11.6 fL (9.4-12.4); Monocytes # 0.5 K/mcL (0.0-1.3); Monocytes % 9.6 %; Neutrophils # 2.6 K/mcL (1.6-8.9); Platelet Count 190 K/mcL (140-400); Red Blood Count 2.64 M/mcL (4.19-5.50); Red Cell Distribution Width 17.2 % (11.5-14.5); Segmented Neutrophils % 49.9 %; White Blood Count 5.2 K/mcL (4.3-11.1)
[2021-11-23 06:12] LABS: Calcium 9.3 mg/dL (8.6-10.3); Magnesium 2.1 mg/dL (1.6-2.6); Phosphorous 3.8 mg/dL (2.7-4.5); Potassium 3.9 mEq/L (3.5-5.1)
[2021-11-23] MEDS: Insulin LISPRO 300 UNITS/3 ML VIAL SUBQ SCH ×4 (07:39→21:36)
[2021-11-23] MEDS: Magnesium Oxide 400 MG TABLET PO SCH (07:41)
[2021-11-23] MEDS: Metoprolol XL (24 HR) Succ 25 MG TAB.ER.24H PO SCH ×2 (07:41→21:35)
[2021-11-23] MEDS: Famotidine 20 MG TABLET PO SCH (07:41)
[2021-11-23] MEDS: Apixaban 5 MG TABLET PO SCH ×2 (07:41→21:36)
[2021-11-23] MEDS: amLODIPine 5 MG TABLET PO SCH (07:42)
[2021-11-23] MEDS: Aspirin 81 MG TAB.CHEW PO SCH (07:42)
[2021-11-23] MEDS: Insulin DETEMIR 100 UNIT/ML X5UNITS SUBQ SCH ×2 (07:46→21:36)
[2021-11-23] MEDS ORDERED: Furosemide 20 MG TABLET PO ONE (12:39)
[2021-11-23] MEDS: Furosemide 20 MG TABLET PO SCH (16:12)
[2021-11-24] MEDS: Acetaminophen 325 MG TABLET PO PRN (00:05)
[2021-11-24] MEDS: Piperacillin/Tazobactam 3.375 GM in 0.9 % Sodium Chloride Mini Bag 100 ML IVPB SCH ×2 (00:06→08:33)
[2021-11-24] MEDS: Ipratropium/Albuterol Neb 3 ML IH SCH ×3 (04:06→11:08)
[2021-11-24 04:15] LABS: Basophils % 0.5 %; Eosinophils # 0.2 K/mcL (0.0-0.6); Eosinophils % 2.5 %; Hematocrit 24.9 % (37.5-50.1); Hemoglobin 7.7 g/dL (12.9-16.9); Immature Granulocytes % 0.4 % (0-4); Lymphocytes # 2.4 K/mcL (0.6-4.6); Lymphocytes % 28.7 %; Mean Corpuscular HGB Conc 30.9 g/dL (31.6-35.5); Mean Corpuscular Hemoglobin 27.2 pg (28.0-33.3); Mean Platelet Volume 11.7 fL (9.4-12.4); Monocytes # 0.7 K/mcL (0.0-1.3); Platelet Count 209 K/mcL (140-400); Red Blood Count 2.83 M/mcL (4.19-5.50); Red Cell Distribution Width 16.6 % (11.5-14.5); Segmented Neutrophils % 59.9 %
[2021-11-24 04:23] LABS: White Blood Count 8.3 K/mcL (4.3-11.1)
[2021-11-24 04:35] LABS: Calcium 9.1 mg/dL (8.6-10.3); Magnesium 1.9 mg/dL (1.6-2.6); Phosphorous 3.6 mg/dL (2.7-4.5); Potassium 3.9 mEq/L (3.5-5.1)
[2021-11-24] MEDS: Insulin LISPRO 300 UNITS/3 ML VIAL SUBQ SCH ×2 (08:28→12:20)
[2021-11-24] MEDS: Furosemide 20 MG TABLET PO SCH (08:31)
[2021-11-24] MEDS: Famotidine 20 MG TABLET PO SCH (08:31)
[2021-11-24] MEDS: Metoprolol XL (24 HR) Succ 25 MG TAB.ER.24H PO SCH (08:32)
[2021-11-24] MEDS: Aspirin 81 MG TAB.CHEW PO SCH (08:32)
[2021-11-24] MEDS: Apixaban 5 MG TABLET PO SCH (08:32)
[2021-11-24] MEDS: Furosemide 20 MG/2 ML VIAL IVP SCH (09:18)
[2021-11-24] MEDS: Insulin DETEMIR 100 UNIT/ML X5UNITS SUBQ SCH (09:21)
[2021-11-24] MEDS: Magnesium Oxide 400 MG TABLET PO SCH (09:21)
[2021-11-24] MEDS: amLODIPine 5 MG TABLET PO SCH (09:21)
[2021-11-24] MEDS ORDERED: CeFAZolin 2,000 MG/120 ML BAG IVPB ONE (12:33)
[2021-11-24 12:59] VITALS: BP 133/65; PULSE 82; TEMP 97.5; O2SAT 98
== END 2021-11-24 14:54 | disposition home health service (06) | DRG 194 ==
LOC: SUATTDRO 11:16 → ICNU 11:16 → 2ANU 11-20 20:28
PROVIDERS: ADMIT Pediatrics; ATTEND Hospitalist